=== PATIENT | female | born 1960 | race Caucasian/White ===

== ENCOUNTER 2016-11-16 19:09 | Emergency (ER) | payer BC ==
--- NOTE | 2016-11-16 19:41 | EDM.PDOC ---
ED HPI GENERAL MEDICAL PROBLEM - General Chief Complaint: Respiratory Problem Stated Complaint: SOB SORE THROAT POSS FEVER Time Seen by Provider: 11/16/16 19:10 - History of Present Illness INITIAL COMMENTS - FREE TEXT/NARRATIVE: 56-year-old female presents to the emergency room with chest pain. This began several days ago is progressively getting worse she is now coughing up off-colored yellowish sputum denies fevers or chills. She has some right- sided chest discomfort with this. 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 She denies any fevers or chills no nausea vomiting diarrhea constipation. Right Upper Back Pain Score (Numeric/FACES): 10 - Related Data Allergies Allergy/AdvReac Type Severity Reaction Status Date / Time No Known Allergies Allergy Verified 11/16/16 19:23 Home Meds: Home Meds DULoxetine [Cymbalta] 60 mg PO DAILY 11/16/16 [History] Doxycycline Hyclate 100 mg PO Q12H #13 tablet 11/16/16 [Rx] Rosuvastatin [Crestor] 10 mg PO BEDTIME 11/16/16 [History] Warfarin [Coumadin] 1 tab PO MO 11/16/16 [History] Warfarin [Coumadin] 1 tab PO SUTUWETHFRSA 11/16/16 [History] Past Medical History Cardiovascular History: Reports: Blood Clots/VTE/DVT, High Cholesterol Respiratory History: Reports: Pneumonia, Recurrent - Past Surgical History GI Surgical History: Reports: Cholecystectomy Social & Family History - Tobacco Use Smoking Status *Q: Former Smoker Used Tobacco, but Quit: Yes Month Tobacco Last Used: Febuary - Caffeine Use Caffeine Use: Reports: Coffee - Recreational Drug Use Recreational Drug Use: No ED ROS GENERAL - Review of Systems Review Of Systems: See Below Constitutional: Reports: No Symptoms HEENT: Reports: No Symptoms Respiratory: Reports: Shortness of Breath, Cough, Sputum Cardiovascular: Reports: Chest Pain. Denies: Dyspnea on Exertion, Edema GI/Abdominal: Reports: No Symptoms : Reports: No Symptoms Neurological: Reports: No Symptoms ED EXAM, GENERAL - Physical Exam Exam: See Below Exam Limited By: No Limitations General Appearance: Alert, No Apparent Distress Eye Exam: Bilateral Eye: Normal Inspection, PERRL Ears: Normal External Exam, Normal Canal, Hearing Grossly Normal, Normal TMs Nose: Normal Inspection Throat/Mouth: Normal Inspection, Normal Lips, Normal Teeth, Normal Gums, Normal Oropharynx, Normal Voice, No Airway Compromise Head: Atraumatic, Normocephalic Neck: Normal Inspection, Supple, Non-Tender, Full Range of Motion Respiratory/Chest: No Respiratory Distress, Lungs Clear, Normal Breath Sounds Cardiovascular: Normal Peripheral Pulses, Regular Rate, Rhythm, No Edema, No Murmur GI/Abdominal: Normal Bowel Sounds, Soft, Non-Tender, No Organomegaly, No Distention, No Abnormal Bruit, No Mass EKG INTERPRETATION EKG Date: 11/16/16 Rhythm: NSR [place]: Normal P-Wave: Present QRS: Other (Developing interventricular conduction delay) ST-T: Other (Nondiagnostic ST-T wave changes some of this can be due to wandering baseline artifact) QT: Normal Comparison: NA - No Prior EKG EKG Interpretation Comments: Abnormal no comparison available Course - Vital Signs Last Recorded V/S: Last Vital Signs Temp 36.0 C 11/16/16 19:16 Pulse 95 11/16/16 19:16 Resp 18 11/16/16 19:16 BP 122/91 H 11/16/16 19:16 Pulse Ox 92 L 11/16/16 22:35 - Orders/Labs/Meds Orders: Active Orders 24 hr Category Date Time Status EKG 12 Lead [EKG Documentation Completion] [RC] STAT Care 11/16/16 19:40 Active RT Post Treatment Assessment [RC] Click To Edit Care 11/16/16 22:23 Active RT Pre-Treatment Assessment [RC] Click To Edit Care 11/16/16 22:23 Active Chest 2V [CR] Stat Exams 11/16/16 19:41 Taken Labs: Laboratory Tests 11/16/16 11/16/16 11/16/16 Range/Units 19:50 19:50 19:50 WBC 9.84 (3.98-10.04) K/mm3 RBC 4.35 (3.98-5.22) M/mm3 Hgb 13.2 (11.2-15.7) gm/L Hct 40.7 (34.1-44.9) % MCV 93.6 (79.4-94.8) fl MCH 30.3 (25.6-32.2) pg MCHC 32.4 (32.2-35.5) g/dl RDW Std Deviation 45.3 (36.4-46.3) fL Plt Count 278 (182-369) K/mm3 MPV 10.7 (9.4-12.3) fl Neutrophils % (Manual) 71 H (40-60) % Band Neutrophils % 0 (0-10) % Lymphocytes % (Manual) 23 (20-40) % Atypical Lymphs % 0 % Monocytes % (Manual) 6 (2-10) % Eosinophils % (Manual) 0 L (0.7-5.8) % Basophils % (Manual) 0 L (0.1-1.2) Platelet Estimate Adequate Plt Morphology Comment Normal RBC Morph Comment Not Reportable PT 22.7 H (8.0-13.0) SECONDS INR 1.99 APTT 40 H (22-36) SECONDS Sodium 141 (136-145) mEq/L Potassium 3.6 (3.5-5.1) mEq/L Chloride 107 (98-107) mEq/L Carbon Dioxide 24 (21-32) mEq/L Anion Gap 13.6 (5-15) BUN 14 (7-18) mg/dL Creatinine 1.0 (0.55-1.02) mg/dL Est Cr Clr Drug Dosing 49.68 mL/min Estimated GFR (MDRD) 57 (>60) mL/min BUN/Creatinine Ratio 14.0 (14-18) Glucose 106 (74-106) mg/dL Calcium 8.5 (8.5-10.1) mg/dL Total Bilirubin 0.3 (0.2-1.0) mg/dL AST 20 (15-37) U/L ALT 28 (14-59) U/L Alkaline Phosphatase 68 (46-116) U/L Troponin I < 0.017 (0.00-0.056) ng/mL Total Protein 6.8 (6.4-8.2) g/dl Albumin 3.1 L (3.4-5.0) g/dl Globulin 3.7 gm/dL Albumin/Globulin Ratio 0.8 L (1-2) /15/ Range/Units 22:08 WBC (3.98-10.04) K/mm3 RBC (3.98-5.22) M/mm3 Hgb (11.2-15.7) gm/L Hct (34.1-44.9) % MCV (79.4-94.8) fl MCH (25.6-32.2) pg MCHC (32.2-35.5) g/dl RDW Std Deviation (36.4-46.3) fL Plt Count (182-369) K/mm3 MPV (9.4-12.3) fl Neutrophils % (Manual) (40-60) % Band Neutrophils % (0-10) % Lymphocytes % (Manual) (20-40) % Atypical Lymphs % % Monocytes % (Manual) (2-10) % Eosinophils % (Manual) (0.7-5.8) % Basophils % (Manual) (0.1-1.2) Platelet Estimate Plt Morphology Comment RBC Morph Comment PT (8.0-13.0) SECONDS INR APTT (22-36) SECONDS Sodium (136-145) mEq/L Potassium (3.5-5.1) mEq/L Chloride (98-107) mEq/L Carbon Dioxide (21-32) mEq/L Anion Gap (5-15) BUN (7-18) mg/dL Creatinine (0.55-1.02) mg/dL Est Cr Clr Drug Dosing mL/min Estimated GFR (MDRD) (>60) mL/min BUN/Creatinine Ratio (14-18) Glucose (74-106) mg/dL Calcium (8.5-10.1) mg/dL Total Bilirubin (0.2-1.0) mg/dL AST (15-37) U/L ALT (14-59) U/L Alkaline Phosphatase (46-116) U/L Troponin I < 0.017 (0.00-0.056) ng/mL Total Protein (6.4-8.2) g/dl Albumin (3.4-5.0) g/dl Globulin gm/dL Albumin/Globulin Ratio (1-2) Meds: Medications Discontinued Medications Generic Name Dose Route Start Last Admin Trade Name Freq PRN Reason Stop Dose Admin Hydrocodone Bitart/Acetaminophen 1 tab 11/16/16 23:00 11/16/16 23:16 [place] 325-5 Mg PO 11/16/16 23:01 1 tab ONETIME ONE Administration Albuterol 6.5 gm 11/16/16 22:22 11/16/16 22:33 Proventil Hfa INH 11/16/16 22:23 2 puff ONETIME ONE Administration - Re-Assessments/Exams Free Text/Narrative Re-Assessment/Exam: 11/16/16 21:47 Labs are unrevealing her INR is a little subtherapeutic at 1.99 she takes 5 mg daily except on Mondays take 7.5 at this point we will have her take an additional 2.5 mg she brought her own Coumadin and took her own half of a 5 mg tablet. Her pain indeed has a positional component however we will check a 2 hour troponin. The patient was started on Crestor 10 mg daily this was started yesterday. 11/16/16 22:23 Situation reviewed again with the patient she is coughing bringing up some off- colored sputum really doesn't have an abdominal component repeated abdominal exam is negative. She coughs and has a hard time clearing secretions will try her on an albuterol MDI see if this helps. 11/16/16 23:01 Second troponins negative she did get some improvement with the albuterol MDI but she still having some discomfort we'll try a single [place] and see how she does with this. We did discuss getting a CT scan in case she had a PE however she is already on Coumadin patient decides against this, the possibility of an aortic issue is highly unlikely given her history and low blood pressure. 11/16/16 23:20 At this point the patient would like to be discharged she's doing much better she attributes this to the inhaler did discuss her family history which includes a mom who at age 56 of an [place] and a father who had a pacemaker at the advanced age. The patient's heart score was calculated. With her mother her hyperlipidemia and obesity she gets 2 points for risk factors one point for age and 1.4 moderately suspicious history which is 4 however the patient would like to go home. Departure - Departure Time of Disposition: 23:22 Disposition: Home, Self-Care 01 Clinical Impression: Bronchitis - Discharge Information Forms: ED Department Discharge Additional Instructions: Return to the emergency room with any questions or problems or worsening symptoms. Follow-up with your regular physician on Sunday for recheck you need to have a repeat INR. You've been started on doxycycline this is an antibiotic like many antibiotics it well work with your Coumadin to further thin your blood so this needs to be watched very closely. You were started on an albuterol inhaler here in the emergency room and this seems to be helping use this 2 puffs every 4 hours while awake. - My Orders Last 24 Hours: My Active Orders 11/16/16 19:40 EKG 12 Lead [EKG Documentation Completion] [RC] STAT 11/16/16 19:41 Chest 2V [CR] Stat 11/16/16 22:23 RT Post Treatment Assessment [RC] Click To Edit RT Pre-Treatment Assessment [RC] Click To Edit - Assessment/Plan Last 24 Hours: My Active Orders 11/16/16 19:40 EKG 12 Lead [EKG Documentation Completion] [RC] STAT 11/16/16 19:41 Chest 2V [CR] Stat 11/16/16 22:23 RT Post Treatment Assessment [RC] Click To Edit RT Pre-Treatment Assessment [RC] Click To Edit
[2016-11-16] MEDS ORDERED: Albuterol 6.7 GM Inhaler INH ONE (22:22)
[2016-11-16] MEDS ORDERED: Acetaminophen/HYDROcodone 325-5 MG Tab PO ONE (23:00)
[2016-11-16] MEDS ORDERED: Doxycycline 100 MG Cap PO ONE (23:23)
[2016-11-17 00:07] VITALS: BP 112/78
--- NOTE | 2016-11-17 10:38 | CR ---
Chest: Two views of the chest were obtained. Comparison: No previous chest x-ray. Heart size and mediastinum are within normal limits. Lungs are clear. Mild degenerative change is noted within the spine. Impression: 1. Incidental findings. Nothing acute is appreciated on two-view chest x-ray. Diagnostic code #2
== END 2016-11-17 00:02 | disposition home or self-care (01) ==
LOC: JD.ED 19:09
DX: J40 Bronchitis, not specified as acute or chronic (principal); E78.00 Pure hypercholesterolemia, unspecified; Z87.01 Personal history of pneumonia (recurrent); Z86.718 Personal history of other venous thrombosis and embolism; Z90.49 Acquired absence of other specified parts of digestive tract; Z87.891 Personal history of nicotine dependence; Z79.01 Long term (current) use of anticoagulants; Z79.899 Other long term (current) drug therapy
CPT/HCPCS: 36415; 71020; 80053; 84484; 85025; 85610; 85730; 93005; 94664; 99285; A9270; 99283

== ENCOUNTER 2020-10-14 16:50 | Inpatient (IN) | payer BC ==
[2020-10-14] MEDS ORDERED: Acetaminophen 325 MG Tab PO ONE (18:09)
[2020-10-14 18:17] LABS: CORONAVIRUS COVID-19 NAA POSITIVE (NEGATIVE)
[2020-10-14] MEDS ORDERED: Acetaminophen 325 MG Tab ONE (18:37)
--- NOTE | 2020-10-14 19:59 | EDM.PDOC ---
ED HPI GENERAL MEDICAL PROBLEM - General Chief Complaint: Respiratory Problem Stated Complaint: SORE THROAT/HIGH TEMP 103/BODY ACHES/ Time Seen by Provider: 10/14/20 17:51 Source of Information: Reports: Patient History Limitations: Reports: No Limitations - History of Present Illness INITIAL COMMENTS - FREE TEXT/NARRATIVE: 60-year-old female presents to the emergency department with complaints of sore throat, headache, cough, shortness of breath, and diarrhea. She states she began to feel unwell 3 days ago. She states this started with a dull headache and cough productive of yellow sputum. She states that that got slightly better however yesterday she developed a severe sore throat, the cough had returned, headache had worsened, and had progressively worse shortness of breath. She noted fever and chills last evening. She states she does have a history of emphysema and she quit smoking about 6 years ago. She has not had Covid this year and has not had her Covid vaccine. She states that her has been ill as well as all his coworkers. 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 Her primary care provider is Dr. Hammond at [facility]. Throat Pain Score (Numeric/FACES): 2 - Related Data Allergies Allergy/AdvReac Type Severity Reaction Status Date / Time No Known Allergies Allergy Verified 10/14/20 17:07 Home Meds: Home Meds DULoxetine [Cymbalta] 60 mg PO DAILY 11/16/16 [History] Rosuvastatin [Crestor] 10 mg PO BEDTIME 11/16/16 [History] Warfarin [Coumadin] 1 tab PO ASDIRECTED 11/16/16 [History] Albuterol Sulfate [Albuterol Sulfate Hfa] 2 puff IH Q4H PRN 10/14/20 [History] Warfarin [Coumadin] 2.5 mg PO TU 10/14/20 [History] Past Medical History Cardiovascular History: Reports: Blood Clots/VTE/DVT, High Cholesterol Respiratory History: Reports: PE, Pneumonia, Recurrent, Other (See Below) Other Respiratory History: Emphysema Psychiatric History: Reports: Anxiety, Depression Endocrine/Metabolic History: Reports: Obesity/BMI 30+ Hematologic History: Reports: Anticoagulation Therapy - Past Surgical History GI Surgical History: Reports: Cholecystectomy Social & Family History - Tobacco Use Tobacco Use Status *Q: Former Tobacco User Used Tobacco, but Quit: Yes Month/Year Tobacco Last Used: 06/2014 - Caffeine Use Caffeine Use: Reports: Coffee - Recreational Drug Use Recreational Drug Use: No ED ROS GENERAL - Review of Systems Review Of Systems: See Below Constitutional: Reports: Fever, Chills, Night Sweats. Denies: Fatigue, Decreased Appetite HEENT: Reports: Throat Pain Respiratory: Reports: Shortness of Breath, Cough, Sputum. Denies: Wheezing Cardiovascular: Reports: Dyspnea on Exertion. Denies: Chest Pain, Edema, Lightheadedness, Palpitations Endocrine: Reports: No Symptoms GI/Abdominal: Reports: Diarrhea. Denies: Abdominal Pain, Constipation, Decreased Appetite, Nausea, Vomiting : Reports: No Symptoms Musculoskeletal: Reports: No Symptoms Skin: Reports: No Symptoms Neurological: Reports: Headache Psychiatric: Reports: No Symptoms Hematologic/Lymphatic: Reports: No Symptoms Immunologic: Reports: No Symptoms ED EXAM, GENERAL - Physical Exam Exam: See Below Exam Limited By: No Limitations General Appearance: Alert, WD/WN, Mild Distress Eye Exam: Bilateral Eye: PERRL Ears: Normal External Exam, Hearing Grossly Normal Nose: Normal Inspection Throat/Mouth: Normal Inspection, Normal Lips, Normal Voice, No Airway Compromise Head: Atraumatic, Normocephalic Neck: Normal Inspection Respiratory/Chest: Normal Breath Sounds, No Accessory Muscle Use, Chest Non- Tender, Respiratory Distress (Mild). No: Lungs Clear (Diminished) Cardiovascular: Normal Peripheral Pulses, No Edema, No Murmur, Tachycardia (Likely due to fever) Peripheral Pulses: 2+: Radial (L), Radial (R) GI/Abdominal: Normal Bowel Sounds, Soft, Non-Tender, No Distention (Female) Exam: Deferred Rectal (Female) Exam: Deferred Back Exam: Normal Inspection Extremities: Normal Inspection, Normal Range of Motion, Non-Tender, No Pedal Edema, Normal Capillary Refill Neurological: Alert, Oriented, Normal Cognition Psychiatric: Normal Affect, Normal Mood Skin Exam: Warm, Dry, Intact, Normal Color, No Rash Lymphatic: No Adenopathy #1 Interpretation EKG Date: 10/14/20 Time: 18:25 Rhythm: NSR Rate (Beats/Min): 110 [place]: Normal P-Wave: Present QRS: Normal ST-T: Normal QT: Normal EKG Interpretation Comments: Per Dr. Almaraz interpretation: Sinus tachycardia at 110; right axis deviation; low voltage, extremity leads; abnormal R wave progression, late transition Course - Vital Signs Text/Narrative:: Patient presents with 3-day history of cough, shortness of breath, sore throat, and headache. She denies any nausea and vomiting. She states she had diarrhea 3 days ago but that has resolved. She still has taste and smell. She states her appetite has been normal. Patient's O2 saturations while in triage in the emergency department are 82% on room air. O2 was placed on the patient at that time per nasal cannula. I have ordered labs, EKG, and a chest x-ray. Patient will also have a Covid swab. Patient also has a low-grade temp of 100.0. She is flushed and tachycardic in the 120s and her skin is very warm to touch. I have ordered for her to receive a dose of Tylenol p.o. Last Recorded V/S: Last Vital Signs Temp 103 F H 10/14/20 18:40 Pulse 119 H 10/14/20 17:03 Resp 20 10/14/20 17:03 BP 162/89 H 10/14/20 17:03 Pulse Ox 82 L 10/14/20 17:03 - Orders/Labs/Meds Orders: Active Orders 24 hr Category Date Time Status EKG Documentation Completion [RC] STAT Care 10/14/20 18:08 Active Nurse Communication: Isolation [RC] ASDIRECTED Care 10/14/20 18:08 Active Chest 1V Frontal [CR] Stat Exams 10/14/20 18:08 Taken CULTURE BLOOD [BC] Stat Lab 10/14/20 20:05 Ordered CULTURE BLOOD [BC] Stat Lab 10/14/20 20:05 Ordered UA W/MANNY RFLX IF INDICATED [URIN] Routine Lab 10/14/20 18:07 Ordered Blood Culture x2 Reflex Set [OM.PC] Stat Oth 10/14/20 20:05 Ordered Isolation [COMM] Stat Oth 10/14/20 18:07 Ordered Labs: Laboratory Tests 10/14/20 10/14/20 10/14/20 Range/Units 17:21 17:21 17:21 WBC (3.98-10.04) K/mm3 RBC (3.98-5.22) M/mm3 Hgb (11.2-15.7) gm/dl Hct (34.1-44.9) % MCV (79.4-94.8) fl MCH (25.6-32.2) pg MCHC (32.2-35.5) g/dl RDW Std Deviation (36.4-46.3) fL Plt Count (182-369) K/mm3 MPV (9.4-12.3) fl Neut % (Auto) (34.0-71.1) % Lymph % (Auto) (19.3-51.7) % [place] % (Auto) (4.7-12.5) % Eos % (Auto) (0.7-5.8) Baso % (Auto) (0.1-1.2) % Neut # (Auto) (1.56-6.13) K/mm3 Lymph # (Auto) (1.18-3.74) K/mm3 [place] # (Auto) (0.24-0.36) K/mm3 Eos # (Auto) (0.04-0.36) K/mm3 Baso # (Auto) (0.01-0.08) K/mm3 Manual Slide Review PT (9.7-12.0) SECONDS INR APTT (21.7-31.4) SECONDS D-Dimer, Quantitative (0.19-0.50) mg/L Sodium 136 (136-145) mEq/L Potassium 3.8 (3.5-5.1) mEq/L Chloride 101 (98-107) mEq/L Carbon Dioxide 24 (21-32) mEq/L Anion Gap 14.8 (5-15) BUN 13 (7-18) mg/dL Creatinine 1.0 (0.55-1.02) mg/dL Est Cr Clr Drug Dosing 51.66 mL/min Estimated GFR (MDRD) 57 (>60) mL/min BUN/Creatinine Ratio 13.0 L (14-18) Glucose 108 H (70-99) mg/dL Lactic Acid (0.4-2.0) mmol/L Calcium 8.2 L (8.5-10.1) mg/dL Ferritin 349 H (8-252) ng/ml Total Bilirubin 0.4 (0.2-1.0) mg/dL AST 38 H (15-37) U/L ALT 46 (14-59) U/L Alkaline Phosphatase 59 (46-116) U/L Lactate Dehydrogenase 239 H (81-234) U/L C-Reactive Protein 5.8 H* (<1.0) mg/dL Total Protein 7.4 (6.4-8.2) g/dl Albumin 3.5 (3.4-5.0) g/dl Globulin 3.9 gm/dL Albumin/Globulin Ratio 0.9 L (1-2) Influenza Type A RNA Negative (NEGATIVE) Influenza Type B RNA Negative (NEGATIVE) SARS-CoV-2 RNA ([place]) Positive H (NEGATIVE) 10/14/20 10/14/20 10/14/20 Range/Units 17:21 17:21 18:34 WBC 8.32 (3.98-10.04) K/mm3 RBC 4.66 (3.98-5.22) M/mm3 Hgb 14.1 (11.2-15.7) gm/dl Hct 42.9 (34.1-44.9) % MCV 92.1 (79.4-94.8) fl MCH 30.3 (25.6-32.2) pg MCHC 32.9 (32.2-35.5) g/dl RDW Std Deviation 46.4 H (36.4-46.3) fL Plt Count 215 (182-369) K/mm3 MPV 10.9 (9.4-12.3) fl Neut % (Auto) 84.8 H (34.0-71.1) % Lymph % (Auto) 8.8 L (19.3-51.7) % [place] % (Auto) 6.0 (4.7-12.5) % Eos % (Auto) 0.1 L (0.7-5.8) Baso % (Auto) 0.1 (0.1-1.2) % Neut # (Auto) 7.05 H (1.56-6.13) K/mm3 Lymph # (Auto) 0.73 L (1.18-3.74) K/mm3 [place] # (Auto) 0.50 H (0.24-0.36) K/mm3 Eos # (Auto) 0.01 L (0.04-0.36) K/mm3 Baso # (Auto) 0.01 (0.01-0.08) K/mm3 Manual Slide Review Abnormal smear PT 26.0 H (9.7-12.0) SECONDS INR 2.47 APTT 50.3 H (21.7-31.4) SECONDS D-Dimer, Quantitative < 0.19 L (0.19-0.50) mg/L Sodium (136-145) mEq/L Potassium (3.5-5.1) mEq/L Chloride (98-107) mEq/L Carbon Dioxide (21-32) mEq/L Anion Gap (5-15) BUN (7-18) mg/dL Creatinine (0.55-1.02) mg/dL Est Cr Clr Drug Dosing mL/min Estimated GFR (MDRD) (>60) mL/min BUN/Creatinine Ratio (14-18) Glucose (70-99) mg/dL Lactic Acid 0.8 (0.4-2.0) mmol/L Calcium (8.5-10.1) mg/dL Ferritin (8-252) ng/ml Total Bilirubin (0.2-1.0) mg/dL AST (15-37) U/L ALT (14-59) U/L Alkaline Phosphatase (46-116) U/L Lactate Dehydrogenase (81-234) U/L C-Reactive Protein (<1.0) mg/dL Total Protein (6.4-8.2) g/dl Albumin (3.4-5.0) g/dl Globulin gm/dL Albumin/Globulin Ratio (1-2) Influenza Type A RNA (NEGATIVE) Influenza Type B RNA (NEGATIVE) SARS-CoV-2 RNA ([place]) (NEGATIVE) Meds: Medications Discontinued Medications Generic Name Dose Route Start Last Admin Trade Name Myra PRN Reason Stop Dose Admin Acetaminophen 650 mg 10/14/20 18:09 10/14/20 18:40 Acetaminophen 325 Mg Tab PO 10/14/20 18:10 650 mg NOW ONE Administration Acetaminophen Confirm 10/14/20 18:37 10/14/20 18:41 Acetaminophen 325 Mg Tab Administered 10/14/20 18:38 Not Given Dose 650 mg .ROUTE .STK-MED ONE - Re-Assessments/Exams Free Text/Narrative Re-Assessment/Exam: 10/14/20 20:03 Hematology reveals a WBC of 8.32, hemoglobin 14.1, hematocrit 42.9, platelet count 215, pro time 26.0, INR 2.47, PTT 50.3, D-dimer less than 0.19, chemistry reveals a sodium of 136, potassium 3.8, anion gap 14.8, BUN 13, creatinine 1.0, glucose 108, calcium 8.2, ferritin 349, total bilirubin 0.4, AST 38, ALT 46, alk phos 59, LDH 239, C-reactive protein 5.8, serology reveals influenza a and B are negative however Covid is positive. 10/14/20 20:30 [facility] radiologist impression: Negative for acute thoracic pathology. I feel like this patient needs to be admitted as she is requiring O2 to keep her saturations greater than 90%. I have phoned Dr. Atkins the hospitalist and he has agreed to take her. She will be admitted to inpatient on the medical floor with telemetry. He request that I start the patient on the initial remdesivir dose of 200 mg. 10/14/20 20:31 Lactic acid is 0.8. Departure - Departure Time of Disposition: 20:40 Disposition: Admitted As Inpatient 66 Condition: Good Clinical Impression: COVID-19, Hypoxia - Discharge Information Referrals: Cassie Hammond MD [Primary Care Provider] - Forms: ED Department Discharge Sepsis Event Note (ED) - Evaluation Sepsis Screening Result: Possible Sepsis Risk - Focused Exam Vital Signs: Vital Signs Temp Temp Pulse Resp BP Pulse Ox 10/14/20 18:40 103 F H 10/14/20 17:03 100 F 119 H 20 162/89 H 82 L - My Orders Last 24 Hours: My Active Orders 10/14/20 18:07 UA W/MANNY RFLX IF INDICATED [URIN] Routine Isolation [COMM] Stat 10/14/20 18:08 EKG Documentation Completion [RC] STAT Nurse Communication: Isolation [RC] ASDIRECTED Chest 1V Frontal [CR] Stat 10/14/20 20:05 CULTURE BLOOD [BC] Stat CULTURE BLOOD [BC] Stat Blood Culture x2 Reflex Set [OM.PC] Stat - Assessment/Plan Last 24 Hours: My Active Orders 10/14/20 18:07 UA W/MANNY RFLX IF INDICATED [URIN] Routine Isolation [COMM] Stat 10/14/20 18:08 EKG Documentation Completion [RC] STAT Nurse Communication: Isolation [RC] ASDIRECTED Chest 1V Frontal [CR] Stat 10/14/20 20:05 CULTURE BLOOD [BC] Stat CULTURE BLOOD [BC] Stat Blood Culture x2 Reflex Set [OM.PC] Stat
[2020-10-14] MEDS ORDERED: REMDESIVIR 200 MG in Sodium Chloride 0.9% 250 ML IV ONE (20:32)
[2020-10-14] MEDS ORDERED: Morphine 2 MG/ML SYRINGE IVPUSH PRN (21:03)
[2020-10-14] MEDS ORDERED: Acetaminophen 650 MG Supp RECTAL PRN (21:03)
[2020-10-14] MEDS ORDERED: Promethazine 12.5 MG in Sodium Chloride 0.9% 50 ML IV PRN (21:03)
[2020-10-14] MEDS ORDERED: Melatonin 3 MG Tab PO PRN (21:14)
[2020-10-14] MEDS ORDERED: cefTRIAXone 2 GM in Sodium Chloride 0.9% 100 ML IV SCH (21:15)
[2020-10-14] MEDS ORDERED: Azithromycin 500 MG in Sodium Chloride 0.9% 250 ML IV SCH (21:15)
[2020-10-14] MEDS ORDERED: hydrALAZINE 20 MG/ML SDV IVPUSH PRN (21:16)
--- NOTE | 2020-10-14 21:21 | PCM.HP.2 ---
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 Her diarrhea improved but her shortness of breath has been worsening since yesterday. She has not received COVID-19 vaccine yet. Otherwise patient is fine. In the ER, she was found to to be oxygen desaturated 82%. Covid 19 was positive. Chest x-ray showed no acute change. Throat Pain Score (Numeric/FACES): 2 - Related Data Allergies/Adverse Reactions: Allergies Allergy/AdvReac Type Severity Reaction Status Date / Time No Known Allergies Allergy Verified 10/14/20 17:07 Home Medications: Home Meds DULoxetine [Cymbalta] 60 mg PO DAILY 11/16/16 [History] Rosuvastatin [Crestor] 10 mg PO BEDTIME 11/16/16 [History] Warfarin [Coumadin] 1 tab PO SUMOWETHFRSA 11/16/16 [History] Albuterol Sulfate [Albuterol Sulfate Hfa] 2 puff IH Q4H PRN 10/14/20 [History] Warfarin [Coumadin] 2.5 mg PO TU 10/14/20 [History] Past Medical History Cardiovascular History: Reports: Blood Clots/VTE/DVT, High Cholesterol Respiratory History: Reports: PE, Pneumonia, Recurrent, Other (See Below) Other Respiratory History: Emphysema Psychiatric History: Reports: Anxiety, Depression Endocrine/Metabolic History: Reports: Obesity/BMI 30+ Hematologic History: Reports: Anticoagulation Therapy - Past Surgical History GI Surgical History: Reports: Cholecystectomy Social & Family History - Family History Family Medical History: No Pertinent Family History (Denies genetic diseases in family) - Tobacco Use Tobacco Use Status *Q: Former Tobacco User Used Tobacco, but Quit: Yes Month/Year Tobacco Last Used: 06/2014 - Caffeine Use Caffeine Use: Reports: Coffee - Recreational Drug Use Recreational Drug Use: No H&P Review of Systems - Review of Systems: Review Of Systems: See Below General: Reports: Malaise HEENT: Reports: Headaches, Sore Throat Pulmonary: Reports: Shortness of Breath, Cough, Sputum Cardiovascular: Reports: No Symptoms Gastrointestinal: Reports: Diarrhea Genitourinary: Reports: No Symptoms Musculoskeletal: Reports: No Symptoms Skin: Reports: No Symptoms Psychiatric: Reports: No Symptoms Neurological: Reports: No Symptoms Hematologic/Lymphatic: Reports: No Symptoms Immunologic: Reports: No Symptoms Exam - Exam Exam: See Below - Vital Signs Vital Signs: Last Vital Signs Temp 39.4 C H 10/14/20 18:40 Pulse 119 H 10/14/20 17:03 Resp 20 10/14/20 17:03 BP 162/89 H 10/14/20 17:03 Pulse Ox 82 L 10/14/20 17:03 Weight: 101.514 kg - Exam General: Alert, Oriented, Cooperative, Mild Distress (Due to shortness of breath) HEENT: Conjunctiva Clear, EOMI, Pupils Equal, Pupils Reactive Neck: Supple, Full Range of Motion Lungs: Clear to Auscultation, Normal Respiratory Effort, Decreased Breath Sounds Cardiovascular: Regular Rate, Regular Rhythm, Normal S1, Normal S2 GI/Abdominal Exam: Normal Bowel Sounds, Soft, Non-Tender, No Organomegaly Extremities: Normal Inspection, Normal Range of Motion, Non-Tender, No Pedal Edema Skin: Warm, Dry, Intact Neurological: Strength Equal Bilateral, Normal Speech, Normal Tone, Sensation Intact Neuro Extensive - Mental Status: Alert, Oriented x3, Normal Mood/Affect Psychiatric: Normal Affect, Normal Mood - Patient Data Lab Results Last 24 hrs: Laboratory Results - last 24 hr 10/14/20 10/14/20 10/14/20 Range/Units 17:21 17:21 17:21 WBC (3.98-10.04) K/mm3 RBC (3.98-5.22) M/mm3 Hgb (11.2-15.7) gm/dl Hct (34.1-44.9) % MCV (79.4-94.8) fl MCH (25.6-32.2) pg MCHC (32.2-35.5) g/dl RDW Std Deviation (36.4-46.3) fL Plt Count (182-369) K/mm3 MPV (9.4-12.3) fl Neut % (Auto) (34.0-71.1) % Lymph % (Auto) (19.3-51.7) % [place] % (Auto) (4.7-12.5) % Eos % (Auto) (0.7-5.8) Baso % (Auto) (0.1-1.2) % Neut # (Auto) (1.56-6.13) K/mm3 Lymph # (Auto) (1.18-3.74) K/mm3 [place] # (Auto) (0.24-0.36) K/mm3 Eos # (Auto) (0.04-0.36) K/mm3 Baso # (Auto) (0.01-0.08) K/mm3 Manual Slide Review PT (9.7-12.0) SECONDS INR APTT (21.7-31.4) SECONDS D-Dimer, Quantitative (0.19-0.50) mg/L Sodium 136 (136-145) mEq/L Potassium 3.8 (3.5-5.1) mEq/L Chloride 101 (98-107) mEq/L Carbon Dioxide 24 (21-32) mEq/L Anion Gap 14.8 (5-15) BUN 13 (7-18) mg/dL Creatinine 1.0 (0.55-1.02) mg/dL Est Cr Clr Drug Dosing 51.66 mL/min Estimated GFR (MDRD) 57 (>60) mL/min BUN/Creatinine Ratio 13.0 L (14-18) Glucose 108 H (70-99) mg/dL Lactic Acid (0.4-2.0) mmol/L Calcium 8.2 L (8.5-10.1) mg/dL Ferritin 349 H (8-252) ng/ml Total Bilirubin 0.4 (0.2-1.0) mg/dL AST 38 H (15-37) U/L ALT 46 (14-59) U/L Alkaline Phosphatase 59 (46-116) U/L Lactate Dehydrogenase 239 H (81-234) U/L C-Reactive Protein 5.8 H* (<1.0) mg/dL Total Protein 7.4 (6.4-8.2) g/dl Albumin 3.5 (3.4-5.0) g/dl Globulin 3.9 gm/dL Albumin/Globulin Ratio 0.9 L (1-2) Influenza Type A RNA Negative (NEGATIVE) Influenza Type B RNA Negative (NEGATIVE) SARS-CoV-2 RNA (LAVIN[place]) Positive H (NEGATIVE) 10/14/20 10/14/20 10/14/20 Range/Units 17:21 17:21 18:34 WBC 8.32 (3.98-10.04) K/mm3 RBC 4.66 (3.98-5.22) M/mm3 Hgb 14.1 (11.2-15.7) gm/dl Hct 42.9 (34.1-44.9) % MCV 92.1 (79.4-94.8) fl MCH 30.3 (25.6-32.2) pg MCHC 32.9 (32.2-35.5) g/dl RDW Std Deviation 46.4 H (36.4-46.3) fL Plt Count 215 (182-369) K/mm3 MPV 10.9 (9.4-12.3) fl Neut % (Auto) 84.8 H (34.0-71.1) % Lymph % (Auto) 8.8 L (19.3-51.7) % [place] % (Auto) 6.0 (4.7-12.5) % Eos % (Auto) 0.1 L (0.7-5.8) Baso % (Auto) 0.1 (0.1-1.2) % Neut # (Auto) 7.05 H (1.56-6.13) K/mm3 Lymph # (Auto) 0.73 L (1.18-3.74) K/mm3 [place] # (Auto) 0.50 H (0.24-0.36) K/mm3 Eos # (Auto) 0.01 L (0.04-0.36) K/mm3 Baso # (Auto) 0.01 (0.01-0.08) K/mm3 Manual Slide Review Abnormal smear PT 26.0 H (9.7-12.0) SECONDS INR 2.47 APTT 50.3 H (21.7-31.4) SECONDS D-Dimer, Quantitative < 0.19 L (0.19-0.50) mg/L Sodium (136-145) mEq/L Potassium (3.5-5.1) mEq/L Chloride (98-107) mEq/L Carbon Dioxide (21-32) mEq/L Anion Gap (5-15) BUN (7-18) mg/dL Creatinine (0.55-1.02) mg/dL Est Cr Clr Drug Dosing mL/min Estimated GFR (MDRD) (>60) mL/min BUN/Creatinine Ratio (14-18) Glucose (70-99) mg/dL Lactic Acid 0.8 (0.4-2.0) mmol/L Calcium (8.5-10.1) mg/dL Ferritin (8-252) ng/ml Total Bilirubin (0.2-1.0) mg/dL AST (15-37) U/L ALT (14-59) U/L Alkaline Phosphatase (46-116) U/L Lactate Dehydrogenase (81-234) U/L C-Reactive Protein (<1.0) mg/dL Total Protein (6.4-8.2) g/dl Albumin (3.4-5.0) g/dl Globulin gm/dL Albumin/Globulin Ratio (1-2) Influenza Type A RNA (NEGATIVE) Influenza Type B RNA (NEGATIVE) SARS-CoV-2 RNA ([place]VIN[place]) (NEGATIVE) Result Diagrams: 10/15/20 06:27 10/15/20 06:27 Sepsis Event Note - Evaluation Sepsis Screening Result: Possible Sepsis Risk - Focused Exam Vital Signs: Vital Signs Temp Temp Pulse Resp BP Pulse Ox 10/14/20 18:40 39.4 C H 10/14/20 17:03 37.7 C 119 H 20 162/89 H 82 L Problem List Initiated/Reviewed/Updated: Yes Orders Last 24hrs: Active Orders 24 hr Category Date Time Status Admission Status [Patient Status] [ADT] Routine ADT 10/14/20 20:32 Active Cardiac Monitoring [RC] CONTINUOUS Care 10/14/20 21:03 Ordered EKG Documentation Completion [RC] STAT Care 10/14/20 18:08 Active Intake and Output [RC] QSHIFT Care 10/14/20 21:03 Ordered Oxygen Therapy [RC] PRN Care 10/14/20 21:03 Ordered Pulse Oximetry [RC] CONTINUOUS Care 10/14/20 21:03 Ordered RT Post Treatment Assessment [RC] Click to Edit Care 10/14/20 21:17 Ordered RT Pre-Treatment Assessment [RC] Click to Edit Care 10/14/20 21:17 Ordered Up to Chair [RC] ASDIRECTED Care 10/14/20 21:03 Ordered VTE/DVT Education [RC] PER UNIT ROUTINE Care 10/14/20 21:03 Ordered Vital Signs [RC] Q4H Care 10/14/20 21:03 Ordered Regular Diet [DIET] Diet 10/14/20 Dinner Ordered Chest 1V Frontal [CR] Stat Exams 10/14/20 18:08 Taken A1C [GLYCOSYLATED HEMOGLOBIN,HGBA1C] [CHEM] Routine Lab 10/15/20 05:00 Ordered CBC WITH AUTO DIFF [HEME] DAILY Lab 10/15/20 05:00 Ordered CBC WITH AUTO DIFF [HEME] DAILY Lab 10/16/20 05:00 Ordered CBC WITH AUTO DIFF [HEME] DAILY Lab 10/17/20 05:00 Ordered CBC WITH AUTO DIFF [HEME] DAILY Lab 10/18/20 05:00 Ordered CBC WITH AUTO DIFF [HEME] DAILY Lab 10/19/20 05:00 Ordered COMPREHENSIVE METABOLIC PN,CMP [CHEM] DAILY Lab 10/15/20 05:00 Ordered COMPREHENSIVE METABOLIC PN,CMP [CHEM] DAILY Lab 10/16/20 05:00 Ordered COMPREHENSIVE METABOLIC PN,CMP [CHEM] DAILY Lab 10/17/20 05:00 Ordered COMPREHENSIVE METABOLIC PN,CMP [CHEM] DAILY Lab 10/18/20 05:00 Ordered COMPREHENSIVE METABOLIC PN,CMP [CHEM] DAILY Lab 10/19/20 05:00 Ordered CRP [C-REACTIVE PROTEIN] [CHEM] DAILY Lab 10/15/20 05:00 Ordered CRP [C-REACTIVE PROTEIN] [CHEM] DAILY Lab 10/16/20 05:00 Ordered CRP [C-REACTIVE PROTEIN] [CHEM] DAILY Lab 10/17/20 05:00 Ordered CRP [C-REACTIVE PROTEIN] [CHEM] DAILY Lab 10/18/20 05:00 Ordered CRP [C-REACTIVE PROTEIN] [CHEM] DAILY Lab 10/19/20 05:00 Ordered CULTURE BLOOD [BC] Stat Lab 10/14/20 20:35 Received CULTURE BLOOD [BC] Stat Lab 10/14/20 20:40 Received CULTURE MRSA [RM] Stat Lab 10/14/20 21:03 Ordered CULTURE SPUTUM + SMEAR [RM] Stat Lab 10/14/20 21:03 Ordered INR,PT,PROTHROMBIN TIME [COAG] DAILY Lab 10/15/20 05:00 Ordered INR,PT,PROTHROMBIN TIME [COAG] DAILY Lab 10/16/20 05:00 Ordered INR,PT,PROTHROMBIN TIME [COAG] DAILY Lab 10/17/20 05:00 Ordered INR,PT,PROTHROMBIN TIME [COAG] DAILY Lab 10/18/20 05:00 Ordered INR,PT,PROTHROMBIN TIME [COAG] DAILY Lab 10/19/20 05:00 Ordered INR,PT,PROTHROMBIN TIME [COAG] Routine Lab 10/14/20 21:17 Ordered MAGNESIUM [CHEM] Routine Lab 10/15/20 05:00 Ordered UA W/MANNY RFLX IF INDICATED [URIN] Routine Lab 10/14/20 18:07 Ordered Acetaminophen [Tylenol] Med 10/14/20 21:03 Ordered 650 mg RECTAL Q6H PRN Albuterol [Proventil HFA] Med 10/14/20 21:16 Ordered 2 puff INH Q4H PRN Azithromycin [Zithromax] 500 mg Med 10/14/20 21:15 Ordered Sodium Chloride 0.9% [Normal Saline (AdvBag)] 250 ml IV Q24H Cholecalciferol (Vitamin D3) [Vitamin D3] Med 10/14/20 21:15 Ordered 5,000 unit PO DAILY DULoxetine Med 10/15/20 09:00 Ordered 60 mg PO DAILY Insulin Lispro [HumaLOG] Med 10/14/20 22:00 Ordered See Protocol SUBCUT QIDACANDBED Melatonin Med 10/14/20 21:14 Ordered 3 mg PO BEDTIME PRN Morphine Med 10/14/20 21:03 Ordered 2 mg IVPUSH Q4H PRN Promethazine [Phenergan] 12.5 mg Med 10/14/20 21:03 Ordered Sodium Chloride 0.9% [Normal Saline] 50 ml IV Q6H Remdesivir 100 mg Med 10/15/20 09:00 Ordered Sodium Chloride 0.9% [Normal Saline] 100 ml IV Q24H Remdesivir 200 mg Med 10/14/20 20:32 Active Sodium Chloride 0.9% [Normal Saline] 250 ml IV ONETIME Rosuvastatin [Crestor] Med 10/15/20 21:00 Ordered 10 mg PO BEDTIME Warfarin [Coumadin] Med 10/19/20 21:16 Ordered 2.5 mg PO TU Warfarin [Coumadin] Med 10/14/20 21:30 Ordered 5 mg PO ASDIRECTED Zinc Sulfate [Zincate] Med 10/15/20 09:00 Ordered 220 mg PO DAILY cefTRIAXone [Rocephin] 2 gm Med 10/14/20 21:15 Ordered Sodium Chloride 0.9% [Normal Saline] 100 ml IV Q24H dexAMETHasone Med 10/14/20 21:15 Ordered 6 mg PO DAILY hydrALAZINE [Apresoline] Med 10/14/20 21:16 Ordered 10 mg IVPUSH Q4H PRN Blood Culture x2 Reflex Set [OM.PC] Stat Ot 10/14/20 20:05 Ordered Isolation [COMM] Stat Ot 10/14/20 18:07 Ordered Medication Orders Acetaminophen (Acetaminophen 650 Mg Supp) 650 mg RECTAL Q6H PRN PRN Reason: Pain (mild 1-3) Albuterol (Albuterol 6.7 Gm Inhaler) gm INH Q4H PRN PRN Reason: Shortness of Breath Cholecalciferol (Cholecalciferol (Vitamin D3) 5,000 Unit Cap) 5,000 unit PO DAILY [facility] Dexamethasone (Dexamethasone 4 Mg Tab) 6 mg PO DAILY [facility] Hydralazine HCl (Hydralazine 20 Mg/Ml Sdv) 10 mg IVPUSH Q4H PRN PRN Reason: Hypertension Remdesivir 200 mg/ Sodium (Chloride) 250 mls @ 250 mls/hr IV ONETIME ONE Stop: 10/14/20 21:31 Last Admin: 10/14/20 20:54 Dose: 250 mls/hr Documented by: QUINCY Promethazine HCl 12.5 mg/ (Sodium Chloride) 50.5 mls @ 100 mls/hr IV Q6H PRN PRN Reason: Nausea/Vomiting Remdesivir 100 mg/ Sodium (Chloride) 100 mls @ 100 mls/hr IV Q24H [facility] Stop: 10/18/20 09:59 Ceftriaxone Sodium 2 gm/ (Sodium Chloride) 100 mls @ 200 mls/hr IV Q24H [facility] Azithromycin 500 mg/ Sodium (Chloride) 250 mls @ 250 mls/hr IV Q24H [facility] Insulin Human Lispro (Insulin Lispro 100 Unit/Ml 10 Ml Vial) 0 unit SUBCUT QIDACANDBED [facility]; Protocol Melatonin (Melatonin 3 Mg Tab) 3 mg PO BEDTIME PRN PRN Reason: Insomnia Morphine Sulfate (Morphine 2 Mg/Ml Syringe) 2 mg IVPUSH Q4H PRN PRN Reason: Pain (severe 7-10) Stop: 10/15/20 21:04 Non-Formulary Medication (Duloxetine) 60 mg PO DAILY [facility] Rosuvastatin Calcium (Rosuvastatin 10 Mg Tab) 10 mg PO BEDTIME HARESH Warfarin Sodium (Warfarin 2.5 Mg Tab) 2.5 mg PO TU [facility] Warfarin Sodium (Warfarin 5 Mg Tab) 5 mg PO ASDIRECTED [facility] Zinc Sulfate (Zinc Sulfate 220 Mg Cap) 220 mg PO DAILY [facility] Assessment/Plan Comment:: Patient is a 60-year-old female with a history of hypertension, 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 Covid positive in the ER Assessment: Acute hypoxic respiratory failure scoliosis -Etiology could be pneumonia, emphysema -Not on home oxygen -Pulse ox -Oxygen therapy, high flow/as needed to keep oxygen saturation greater than 92% Pneumonia, Covid 19 or CAP -CXR -no acute change. But i feel patient has a clinical pneumonia -Covid 19 test positive in in the ER -Symptoms started 3 to 4 days ago -Ferritin 349, D-dimer <0.19 (chronic use of warfarin), CRP 5.8 on admission Transaminitis -Could be due to infection of COVID-19 -AST 38. Tbil 0.4 and Al phos 59 on admission Hx of COPD -As per patient, she has emphysema -Former smoker, quit smoking 6 years ago HTN -Home medication does not include blood pressure medication -Hydralazine as needed Hx of PE and DVT -on warfarin -Therapeutic INR 2.47 on admission Plan: 1. We will admitted to telemetry as an inpatient 2. RT to oxygen to keep saturations greater than 92% Remdesivir 200mg iv x 1 and then 100mg iv daily x 4. Ceftriaxone, azithromycin, dexamethasone 6 mg p.o. daily and continue warfarin. Inhalers She does not have diabetes but I will put her on insulin sliding scale since she is started on high-dose steroid Continue incentive spirometry and A[place]ella Dietitian consult regarding nutritional needs PT/OT to eval and treat and increase activity Prone positioning Continue to trend labs including D-dimer, CRP, and liver functions Monitor electrolytes. replace and repeat it if [facility] for discharge planning Monitor blood sugars 3. Repeat the liver function in morning 4. Repeat INR daily in morning 5. DVT prophylaxis: Warfarin 6. CODE STATUS: Full Deposition: 2 to 3 days - Mortality Measure Prognosis:: Good
[2020-10-14] MEDS: Cholecalciferol (Vitamin D3) 5,000 UNIT Cap PO SCH (22:50)
[2020-10-14] MEDS: Dexamethasone 4 MG Tab PO SCH (23:15)
[2020-10-14] MEDS: Insulin Lispro 100 UNIT/ML 10 ML Vial SUBCUT SCH (23:51)
[2020-10-15 07:18] LABS: HEMOGLOBIN A1C 5.9 %
--- NOTE | 2020-10-15 08:40 | CR ---
Chest: Portable view of the chest was obtained. Comparison: Prior chest x-ray of 11/16/16. Heart size and mediastinum are normal. Lungs are clear with no acute parenchymal change. Bony structures show nothing acute. Impression: 1. Nothing acute is seen on portable chest x-ray. Diagnostic code #1
[2020-10-15] MEDS: Dexamethasone 4 MG Tab PO SCH (09:01)
[2020-10-15] MEDS: Insulin Lispro 100 UNIT/ML 10 ML Vial SUBCUT SCH ×4 (09:01→21:55)
[2020-10-15] MEDS: Cholecalciferol (Vitamin D3) 5,000 UNIT Cap PO SCH (09:02)
[2020-10-15] MEDS: Zinc Sulfate 220 MG Cap PO SCH (09:02)
[2020-10-15] MEDS: DULoxetine 30 MG Cap PO SCH (09:03)
[2020-10-15] MEDS: Acetaminophen 325 MG Tab PO PRN (09:03)
--- NOTE | 2020-10-15 12:22 | PCM.PN ---
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 Patient is feeling better today. No longer has diarrhea, nausea, or vomiting. Mild tachycardia at times She is now on 1 to 1.5 L INR 2.04 Hemoglobin A1c 5.9 Magnesium 2.0 AST 32 CRP 7.5 MRSA screen negative - Review of Systems Systems Review Comment:: General: Reports: Malaise HEENT: Reports: Headaches, Sore Throat Pulmonary: Reports: Shortness of Breath, Cough, Sputum Cardiovascular: Reports: No Symptoms Gastrointestinal: Reports: Diarrhea Genitourinary: Reports: No Symptoms Musculoskeletal: Reports: No Symptoms Skin: Reports: No Symptoms Psychiatric: Reports: No Symptoms Neurological: Reports: No Symptoms Hematologic/Lymphatic: Reports: No Symptoms Immunologic: Reports: No Symptoms - Patient Data Vitals - Most Recent: Last Vital Signs Temp 36.6 C 10/15/20 11:03 Pulse 93 10/15/20 11:03 Resp 20 10/15/20 11:03 BP 123/71 10/15/20 11:03 Pulse Ox 93 L 10/15/20 11:03 Weight - Most Recent: 100.561 kg I&O - Last 24 Hours: Intake & Output 10/14/20 10/15/20 10/15/20 22:59 06:59 14:59 Intake Total 750 180 Output Total 500 Balance 250 180 Lab Results Last 24 Hours: Laboratory Results - last 24 hr 10/14/20 10/14/20 10/14/20 Range/Units 17:21 17:21 17:21 WBC (3.98-10.04) K/mm3 RBC (3.98-5.22) M/mm3 Hgb (11.2-15.7) gm/dl Hct (34.1-44.9) % MCV (79.4-94.8) fl MCH (25.6-32.2) pg MCHC (32.2-35.5) g/dl RDW Std Deviation (36.4-46.3) fL Plt Count (182-369) K/mm3 MPV (9.4-12.3) fl Neut % (Auto) (34.0-71.1) % Lymph % (Auto) (19.3-51.7) % [place] % (Auto) (4.7-12.5) % Eos % (Auto) (0.7-5.8) Baso % (Auto) (0.1-1.2) % Neut # (Auto) (1.56-6.13) K/mm3 Lymph # (Auto) (1.18-3.74) K/mm3 [place] # (Auto) (0.24-0.36) K/mm3 Eos # (Auto) (0.04-0.36) K/mm3 Baso # (Auto) (0.01-0.08) K/mm3 Manual Slide Review PT (9.7-12.0) SECONDS INR APTT (21.7-31.4) SECONDS D-Dimer, Quantitative (0.19-0.50) mg/L Sodium 136 (136-145) mEq/L Potassium 3.8 (3.5-5.1) mEq/L Chloride 101 (98-107) mEq/L Carbon Dioxide 24 (21-32) mEq/L Anion Gap 14.8 (5-15) BUN 13 (7-18) mg/dL Creatinine 1.0 (0.55-1.02) mg/dL Est Cr Clr Drug Dosing 51.66 mL/min Estimated GFR (MDRD) 57 (>60) mL/min BUN/Creatinine Ratio 13.0 L (14-18) Glucose 108 H (70-99) mg/dL POC Glucose (70-99) mg/dL Hemoglobin A1c ( - 5.6) % Lactic Acid (0.4-2.0) mmol/L Calcium 8.2 L (8.5-10.1) mg/dL Magnesium (1.8-2.4) mg/dL Ferritin 349 H (8-252) ng/ml Total Bilirubin 0.4 (0.2-1.0) mg/dL AST 38 H (15-37) U/L ALT 46 (14-59) U/L Alkaline Phosphatase 59 (46-116) U/L Lactate Dehydrogenase 239 H (81-234) U/L C-Reactive Protein 5.8 H* (<1.0) mg/dL Total Protein 7.4 (6.4-8.2) g/dl Albumin 3.5 (3.4-5.0) g/dl Globulin 3.9 gm/dL Albumin/Globulin Ratio 0.9 L (1-2) Urine Color (Yellow) Urine Appearance (Clear) Urine pH (5.0-8.0) Ur Specific [place] (1.005-1.030) Urine Protein (Negative) Urine Glucose (UA) (Negative) Urine Ketones (Negative) Urine Occult Blood (Negative) Urine Nitrite (Negative) Urine Bilirubin (Negative) Urine Urobilinogen (0.2-1.0) Ur Leukocyte Esterase (Negative) Urine RBC (0-5) /hpf Urine WBC (0-5) /hpf Ur Squamous Epith Cells (0-5) /hpf Urine Bacteria (FEW) /hpf Urine Mucus (FEW) /hpf Influenza Type A RNA Negative (NEGATIVE) Influenza Type B RNA Negative (NEGATIVE) SARS-CoV-2 RNA ([place]) Positive H (NEGATIVE) MRSA (PCR) 10/14/20 10/14/20 10/14/20 Range/Units 17:21 17:21 18:34 WBC 8.32 (3.98-10.04) K/mm3 RBC 4.66 (3.98-5.22) M/mm3 Hgb 14.1 (11.2-15.7) gm/dl Hct 42.9 (34.1-44.9) % MCV 92.1 (79.4-94.8) fl MCH 30.3 (25.6-32.2) pg MCHC 32.9 (32.2-35.5) g/dl RDW Std Deviation 46.4 H (36.4-46.3) fL Plt Count 215 (182-369) K/mm3 MPV 10.9 (9.4-12.3) fl Neut % (Auto) 84.8 H (34.0-71.1) % Lymph % (Auto) 8.8 L (19.3-51.7) % [place] % (Auto) 6.0 (4.7-12.5) % Eos % (Auto) 0.1 L (0.7-5.8) Baso % (Auto) 0.1 (0.1-1.2) % Neut # (Auto) 7.05 H (1.56-6.13) K/mm3 Lymph # (Auto) 0.73 L (1.18-3.74) K/mm3 [place] # (Auto) 0.50 H (0.24-0.36) K/mm3 Eos # (Auto) 0.01 L (0.04-0.36) K/mm3 Baso # (Auto) 0.01 (0.01-0.08) K/mm3 Manual Slide Review Abnormal smear PT 26.0 H (9.7-12.0) SECONDS INR 2.47 APTT 50.3 H (21.7-31.4) SECONDS D-Dimer, Quantitative < 0.19 L (0.19-0.50) mg/L Sodium (136-145) mEq/L Potassium (3.5-5.1) mEq/L Chloride (98-107) mEq/L Carbon Dioxide (21-32) mEq/L Anion Gap (5-15) BUN (7-18) mg/dL Creatinine (0.55-1.02) mg/dL Est Cr Clr Drug Dosing mL/min Estimated GFR (MDRD) (>60) mL/min BUN/Creatinine Ratio (14-18) Glucose (70-99) mg/dL POC Glucose (70-99) mg/dL Hemoglobin A1c ( - 5.6) % Lactic Acid 0.8 (0.4-2.0) mmol/L Calcium (8.5-10.1) mg/dL Magnesium (1.8-2.4) mg/dL Ferritin (8-252) ng/ml Total Bilirubin (0.2-1.0) mg/dL AST (15-37) U/L ALT (14-59) U/L Alkaline Phosphatase (46-116) U/L Lactate Dehydrogenase (81-234) U/L C-Reactive Protein (<1.0) mg/dL Total Protein (6.4-8.2) g/dl Albumin (3.4-5.0) g/dl Globulin gm/dL Albumin/Globulin Ratio (1-2) Urine Color (Yellow) Urine Appearance (Clear) Urine pH (5.0-8.0) Ur Specific [place] (1.005-1.030) Urine Protein (Negative) Urine Glucose (UA) (Negative) Urine Ketones (Negative) Urine Occult Blood (Negative) Urine Nitrite (Negative) Urine Bilirubin (Negative) Urine Urobilinogen (0.2-1.0) Ur Leukocyte Esterase (Negative) Urine RBC (0-5) /hpf Urine WBC (0-5) /hpf Ur Squamous Epith Cells (0-5) /hpf Urine Bacteria (FEW) /hpf Urine Mucus (FEW) /hpf Influenza Type A RNA (NEGATIVE) Influenza Type B RNA (NEGATIVE) SARS-CoV-2 RNA ([place]) (NEGATIVE) MRSA (PCR) 10/14/20 10/15/20 10/15/20 Range/Units 23:26 00:30 06:08 WBC (3.98-10.04) K/mm3 RBC (3.98-5.22) M/mm3 Hgb (11.2-15.7) gm/dl Hct (34.1-44.9) % MCV (79.4-94.8) fl MCH (25.6-32.2) pg MCHC (32.2-35.5) g/dl RDW Std Deviation (36.4-46.3) fL Plt Count (182-369) K/mm3 MPV (9.4-12.3) fl Neut % (Auto) (34.0-71.1) % Lymph % (Auto) (19.3-51.7) % [place] % (Auto) (4.7-12.5) % Eos % (Auto) (0.7-5.8) Baso % (Auto) (0.1-1.2) % Neut # (Auto) (1.56-6.13) K/mm3 Lymph # (Auto) (1.18-3.74) K/mm3 [place] # (Auto) (0.24-0.36) K/mm3 Eos # (Auto) (0.04-0.36) K/mm3 Baso # (Auto) (0.01-0.08) K/mm3 Manual Slide Review PT (9.7-12.0) SECONDS INR APTT (21.7-31.4) SECONDS D-Dimer, Quantitative (0.19-0.50) mg/L Sodium (136-145) mEq/L Potassium (3.5-5.1) mEq/L Chloride (98-107) mEq/L Carbon Dioxide (21-32) mEq/L Anion Gap (5-15) BUN (7-18) mg/dL Creatinine (0.55-1.02) mg/dL Est Cr Clr Drug Dosing mL/min Estimated GFR (MDRD) (>60) mL/min BUN/Creatinine Ratio (14-18) Glucose (70-99) mg/dL POC Glucose 112 H 157 H (70-99) mg/dL Hemoglobin A1c ( - 5.6) % Lactic Acid (0.4-2.0) mmol/L Calcium (8.5-10.1) mg/dL Magnesium (1.8-2.4) mg/dL Ferritin (8-252) ng/ml Total Bilirubin (0.2-1.0) mg/dL AST (15-37) U/L ALT (14-59) U/L Alkaline Phosphatase (46-116) U/L Lactate Dehydrogenase (81-234) U/L C-Reactive Protein (<1.0) mg/dL Total Protein (6.4-8.2) g/dl Albumin (3.4-5.0) g/dl Globulin gm/dL Albumin/Globulin Ratio (1-2) Urine Color (Yellow) Urine Appearance (Clear) Urine pH (5.0-8.0) Ur Specific [place] (1.005-1.030) Urine Protein (Negative) Urine Glucose (UA) (Negative) Urine Ketones (Negative) Urine Occult Blood (Negative) Urine Nitrite (Negative) Urine Bilirubin (Negative) Urine Urobilinogen (0.2-1.0) Ur Leukocyte Esterase (Negative) Urine RBC (0-5) /hpf Urine WBC (0-5) /hpf Ur Squamous Epith Cells (0-5) /hpf Urine Bacteria (FEW) /hpf Urine Mucus (FEW) /hpf Influenza Type A RNA (NEGATIVE) Influenza Type B RNA (NEGATIVE) SARS-CoV-2 RNA ([place]) (NEGATIVE) MRSA (PCR) Negative 10/15/20 10/15/20 10/15/20 Range/Units 06:27 06:27 06:27 WBC 5.89 (3.98-10.04) K/mm3 RBC 4.84 (3.98-5.22) M/mm3 Hgb 14.3 (11.2-15.7) gm/dl Hct 45.0 H (34.1-44.9) % MCV 93.0 (79.4-94.8) fl MCH 29.5 (25.6-32.2) pg MCHC 31.8 L (32.2-35.5) g/dl RDW Std Deviation 46.5 H (36.4-46.3) fL Plt Count 218 (182-369) K/mm3 MPV 10.6 (9.4-12.3) fl Neut % (Auto) 88.8 H (34.0-71.1) % Lymph % (Auto) 8.8 L (19.3-51.7) % [place] % (Auto) 2.4 L (4.7-12.5) % Eos % (Auto) 0 L (0.7-5.8) Baso % (Auto) 0.0 L (0.1-1.2) % Neut # (Auto) 5.23 (1.56-6.13) K/mm3 Lymph # (Auto) 0.52 L (1.18-3.74) K/mm3 [place] # (Auto) 0.14 L (0.24-0.36) K/mm3 Eos # (Auto) 0.00 L (0.04-0.36) K/mm3 Baso # (Auto) 0.00 L (0.01-0.08) K/mm3 Manual Slide Review Abnormal smear PT 21.5 H (9.7-12.0) SECONDS INR 2.04 APTT (21.7-31.4) SECONDS D-Dimer, Quantitative (0.19-0.50) mg/L Sodium 141 (136-145) mEq/L Potassium 4.4 (3.5-5.1) mEq/L Chloride 104 (98-107) mEq/L Carbon Dioxide 26 (21-32) mEq/L Anion Gap 15.4 H (5-15) BUN 14 (7-18) mg/dL Creatinine 1.0 (0.55-1.02) mg/dL Est Cr Clr Drug Dosing 51.66 mL/min Estimated GFR (MDRD) 57 (>60) mL/min BUN/Creatinine Ratio 14.0 (14-18) Glucose 166 H (70-99) mg/dL POC Glucose (70-99) mg/dL Hemoglobin A1c ( - 5.6) % Lactic Acid (0.4-2.0) mmol/L Calcium 8.0 L (8.5-10.1) mg/dL Magnesium 2.0 (1.8-2.4) mg/dL Ferritin (8-252) ng/ml Total Bilirubin 0.3 (0.2-1.0) mg/dL AST 32 (15-37) U/L ALT 43 (14-59) U/L Alkaline Phosphatase 64 (46-116) U/L Lactate Dehydrogenase (81-234) U/L C-Reactive Protein 7.5 H* (<1.0) mg/dL Total Protein 7.2 (6.4-8.2) g/dl Albumin 3.2 L (3.4-5.0) g/dl Globulin 4.0 gm/dL Albumin/Globulin Ratio 0.8 L (1-2) Urine Color (Yellow) Urine Appearance (Clear) Urine pH (5.0-8.0) Ur Specific [place] (1.005-1.030) Urine Protein (Negative) Urine Glucose (UA) (Negative) Urine Ketones (Negative) Urine Occult Blood (Negative) Urine Nitrite (Negative) Urine Bilirubin (Negative) Urine Urobilinogen (0.2-1.0) Ur Leukocyte Esterase (Negative) Urine RBC (0-5) /hpf Urine WBC (0-5) /hpf Ur Squamous Epith Cells (0-5) /hpf Urine Bacteria (FEW) /hpf Urine Mucus (FEW) /hpf Influenza Type A RNA (NEGATIVE) Influenza Type B RNA (NEGATIVE) SARS-CoV-2 RNA ([place]) (NEGATIVE) MRSA (PCR) 10/15/20 10/15/20 10/15/20 Range/Units 06:27 08:30 11:02 WBC (3.98-10.04) K/mm3 RBC (3.98-5.22) M/mm3 Hgb (11.2-15.7) gm/dl Hct (34.1-44.9) % MCV (79.4-94.8) fl MCH (25.6-32.2) pg MCHC (32.2-35.5) g/dl RDW Std Deviation (36.4-46.3) fL Plt Count (182-369) K/mm3 MPV (9.4-12.3) fl Neut % (Auto) (34.0-71.1) % Lymph % (Auto) (19.3-51.7) % [place] % (Auto) (4.7-12.5) % Eos % (Auto) (0.7-5.8) Baso % (Auto) (0.1-1.2) % Neut # (Auto) (1.56-6.13) K/mm3 Lymph # (Auto) (1.18-3.74) K/mm3 [place] # (Auto) (0.24-0.36) K/mm3 Eos # (Auto) (0.04-0.36) K/mm3 Baso # (Auto) (0.01-0.08) K/mm3 Manual Slide Review PT (9.7-12.0) SECONDS INR APTT (21.7-31.4) SECONDS D-Dimer, Quantitative (0.19-0.50) mg/L Sodium (136-145) mEq/L Potassium (3.5-5.1) mEq/L Chloride (98-107) mEq/L Carbon Dioxide (21-32) mEq/L Anion Gap (5-15) BUN (7-18) mg/dL Creatinine (0.55-1.02) mg/dL Est Cr Clr Drug Dosing mL/min Estimated GFR (MDRD) (>60) mL/min BUN/Creatinine Ratio (14-18) Glucose (70-99) mg/dL POC Glucose 154 H (70-99) mg/dL Hemoglobin A1c 5.9 H ( - 5.6) % Lactic Acid (0.4-2.0) mmol/L Calcium (8.5-10.1) mg/dL Magnesium (1.8-2.4) mg/dL Ferritin (8-252) ng/ml Total Bilirubin (0.2-1.0) mg/dL AST (15-37) U/L ALT (14-59) U/L Alkaline Phosphatase (46-116) U/L Lactate Dehydrogenase (81-234) U/L C-Reactive Protein (<1.0) mg/dL Total Protein (6.4-8.2) g/dl Albumin (3.4-5.0) g/dl Globulin gm/dL Albumin/Globulin Ratio (1-2) Urine Color Yellow (Yellow) Urine Appearance Clear (Clear) Urine pH 5.5 (5.0-8.0) Ur Specific [place] 1.025 (1.005-1.030) Urine Protein Trace H (Negative) Urine Glucose (UA) Negative (Negative) Urine Ketones Negative (Negative) Urine Occult Blood Negative (Negative) Urine Nitrite Negative (Negative) Urine Bilirubin Negative (Negative) Urine Urobilinogen 0.2 (0.2-1.0) Ur Leukocyte Esterase Negative (Negative) Urine RBC Not seen (0-5) /hpf Urine WBC Not seen (0-5) /hpf Ur Squamous Epith Cells 0-5 (0-5) /hpf Urine Bacteria Few (FEW) /hpf Urine Mucus Not seen (FEW) /hpf Influenza Type A RNA (NEGATIVE) Influenza Type B RNA (NEGATIVE) SARS-CoV-2 RNA ([place]) (NEGATIVE) MRSA (PCR) Med Orders - Current: Current Medications Acetaminophen (Acetaminophen 325 Mg Tab) 650 mg PO Q4H PRN PRN Reason: Pain (mild 1-3) Last Admin: 10/15/20 09:03 Dose: 650 mg Documented by: Albuterol (Albuterol 6.7 Gm Inhaler) 0 gm INH Q4H PRN PRN Reason: Shortness of Breath Cholecalciferol (Cholecalciferol (Vitamin D3) 5,000 Unit Cap) 5,000 unit PO DAILY [facility] Last Admin: 10/15/20 09:02 Dose: 5,000 unit Documented by: Dexamethasone (Dexamethasone 4 Mg Tab) 6 mg PO DAILY [facility] Last Admin: 10/15/20 09:01 Dose: 6 mg Documented by: Duloxetine HCl (Duloxetine 30 Mg Cap) 60 mg PO DAILY [facility] Last Admin: 10/15/20 09:03 Dose: 60 mg Documented by: Hydralazine HCl (Hydralazine 20 Mg/Ml Sdv) 10 mg IVPUSH Q4H PRN PRN Reason: Hypertension Promethazine HCl 12.5 mg/ (Sodium Chloride) 50.5 mls @ 100 mls/hr IV Q6H PRN PRN Reason: Nausea/Vomiting Remdesivir 100 mg/ Sodium (Chloride) 100 mls @ 100 mls/hr IV Q24H [facility] Stop: 10/18/20 20:59 Azithromycin 500 mg/ Sodium (Chloride) 250 mls @ 250 mls/hr IV Q24H [facility] Ceftriaxone Sodium 2 gm/ (Sodium Chloride) 100 mls @ 200 mls/hr IV Q24H [facility] Insulin Human Lispro (Insulin Lispro 100 Unit/Ml 10 Ml Vial) 0 unit SUBCUT QIDACANDBED [facility]; Protocol Last Admin: 10/15/20 11:44 Dose: 1 units Documented by: Melatonin (Melatonin 3 Mg Tab) 3 mg PO BEDTIME PRN PRN Reason: Insomnia Morphine Sulfate (Morphine 2 Mg/Ml Syringe) 2 mg IVPUSH Q4H PRN PRN Reason: Pain (severe 7-10) Stop: 10/15/20 21:04 Rosuvastatin Calcium (Rosuvastatin 10 Mg Tab) 10 mg PO BEDTIME [facility] Warfarin Sodium (Warfarin 2.5 Mg Tab) 2.5 mg PO Tu@1800 [facility] Warfarin Sodium (Warfarin 5 Mg Tab) 5 mg PO SuMoWeThFrSa@1800 [facility] Zinc Sulfate (Zinc Sulfate 220 Mg Cap) 220 mg PO DAILY [facility] Last Admin: 10/15/20 09:02 Dose: 220 mg Documented by: Discontinued Medications Acetaminophen (Acetaminophen 325 Mg Tab) 650 mg PO NOW ONE Stop: 10/14/20 18:10 Last Admin: 10/14/20 18:40 Dose: 650 mg Documented by: Acetaminophen (Acetaminophen 325 Mg Tab) Confirm Administered Dose 650 mg .ROUTE .STK-MED ONE Stop: 10/14/20 18:38 Last Admin: 10/14/20 18:41 Dose: Not Given Documented by: Acetaminophen (Acetaminophen 650 Mg Supp) 650 mg RECTAL Q6H PRN PRN Reason: Pain (mild 1-3) Remdesivir 200 mg/ Sodium (Chloride) 250 mls @ 250 mls/hr IV ONETIME ONE Stop: 10/14/20 21:31 Last Admin: 10/14/20 20:54 Dose: 250 mls/hr Documented by: Ceftriaxone Sodium 2 gm/ (Sodium Chloride) 100 mls @ 200 mls/hr IV Q24H [facility] Last Admin: 10/14/20 22:05 Dose: 200 mls/hr Documented by: Azithromycin 500 mg/ Sodium (Chloride) 250 mls @ 250 mls/hr IV Q24H [facility] Last Admin: 10/14/20 23:16 Dose: 250 mls/hr Documented by: - Exam Physical Findings Comments:: General: Alert, Oriented, Cooperative, Mild Distress (Due to shortness of breath) HEENT: Conjunctiva Clear, EOMI, Pupils Equal, Pupils Reactive Neck: Supple, Full Range of Motion Lungs: Clear to Auscultation, Normal Respiratory Effort, Decreased Breath Sounds Cardiovascular: Regular Rate, Regular Rhythm, Normal S1, Normal S2 GI/Abdominal Exam: Normal Bowel Sounds, Soft, Non-Tender, No Organomegaly Extremities: Normal Inspection, Normal Range of Motion, Non-Tender, No Pedal Edema Skin: Warm, Dry, Intact Neurological: Strength Equal Bilateral, Normal Speech, Normal Tone, Sensation Intact Neuro Extensive - Mental Status: Alert, Oriented x3, Normal Mood/Affect Psychiatric: Normal Affect, Normal Mood - Patient Data Lab Results Last 24 hrs: Laboratory Results - last 24 hr 10/14/20 10/14/20 10/14/20 Range/Units 17:21 17:21 17:21 WBC (3.98-10.04) K/mm3 RBC (3.98-5.22) M/mm3 Hgb (11.2-15.7) gm/dl Hct (34.1-44.9) % MCV (79.4-94.8) fl MCH (25.6-32.2) pg MCHC (32.2-35.5) g/dl RDW Std Deviation (36.4-46.3) fL Plt Count (182-369) K/mm3 MPV (9.4-12.3) fl Neut % (Auto) (34.0-71.1) % Lymph % (Auto) (19.3-51.7) % [place] % (Auto) (4.7-12.5) % Eos % (Auto) (0.7-5.8) Baso % (Auto) (0.1-1.2) % Neut # (Auto) (1.56-6.13) K/mm3 Lymph # (Auto) (1.18-3.74) K/mm3 [place] # (Auto) (0.24-0.36) K/mm3 Eos # (Auto) (0.04-0.36) K/mm3 Baso # (Auto) (0.01-0.08) K/mm3 Manual Slide Review PT (9.7-12.0) SECONDS INR APTT (21.7-31.4) SECONDS D-Dimer, Quantitative (0.19-0.50) mg/L Sodium 136 (136-145) mEq/L Potassium 3.8 (3.5-5.1) mEq/L Chloride 101 (98-107) mEq/L Carbon Dioxide 24 (21-32) mEq/L Anion Gap 14.8 (5-15) BUN 13 (7-18) mg/dL Creatinine 1.0 (0.55-1.02) mg/dL Est Cr Clr Drug Dosing 51.66 mL/min Estimated GFR (MDRD) 57 (>60) mL/min BUN/Creatinine Ratio 13.0 L (14-18) Glucose 108 H (70-99) mg/dL POC Glucose (70-99) mg/dL Hemoglobin A1c ( - 5.6) % Lactic Acid (0.4-2.0) mmol/L Calcium 8.2 L (8.5-10.1) mg/dL Magnesium (1.8-2.4) mg/dL Ferritin 349 H (8-252) ng/ml Total Bilirubin 0.4 (0.2-1.0) mg/dL AST 38 H (15-37) U/L ALT 46 (14-59) U/L Alkaline Phosphatase 59 (46-116) U/L Lactate Dehydrogenase 239 H (81-234) U/L C-Reactive Protein 5.8 H* (<1.0) mg/dL Total Protein 7.4 (6.4-8.2) g/dl Albumin 3.5 (3.4-5.0) g/dl Globulin 3.9 gm/dL Albumin/Globulin Ratio 0.9 L (1-2) Urine Color (Yellow) Urine Appearance (Clear) Urine pH (5.0-8.0) Ur Specific [place] (1.005-1.030) Urine Protein (Negative) Urine Glucose (UA) (Negative) Urine Ketones (Negative) Urine Occult Blood (Negative) Urine Nitrite (Negative) Urine Bilirubin (Negative) Urine Urobilinogen (0.2-1.0) Ur Leukocyte Esterase (Negative) Urine RBC (0-5) /hpf Urine WBC (0-5) /hpf Ur Squamous Epith Cells (0-5) /hpf Urine Bacteria (FEW) /hpf Urine Mucus (FEW) /hpf Influenza Type A RNA Negative (NEGATIVE) Influenza Type B RNA Negative (NEGATIVE) SARS-CoV-2 RNA ([place]) Positive H (NEGATIVE) MRSA (PCR) 10/14/20 10/14/20 10/14/20 Range/Units 17:21 17:21 18:34 WBC 8.32 (3.98-10.04) K/mm3 RBC 4.66 (3.98-5.22) M/mm3 Hgb 14.1 (11.2-15.7) gm/dl Hct 42.9 (34.1-44.9) % MCV 92.1 (79.4-94.8) fl MCH 30.3 (25.6-32.2) pg MCHC 32.9 (32.2-35.5) g/dl RDW Std Deviation 46.4 H (36.4-46.3) fL Plt Count 215 (182-369) K/mm3 MPV 10.9 (9.4-12.3) fl Neut % (Auto) 84.8 H (34.0-71.1) % Lymph % (Auto) 8.8 L (19.3-51.7) % [place] % (Auto) 6.0 (4.7-12.5) % Eos % (Auto) 0.1 L (0.7-5.8) Baso % (Auto) 0.1 (0.1-1.2) % Neut # (Auto) 7.05 H (1.56-6.13) K/mm3 Lymph # (Auto) 0.73 L (1.18-3.74) K/mm3 [place] # (Auto) 0.50 H (0.24-0.36) K/mm3 Eos # (Auto) 0.01 L (0.04-0.36) K/mm3 Baso # (Auto) 0.01 (0.01-0.08) K/mm3 Manual Slide Review Abnormal smear PT 26.0 H (9.7-12.0) SECONDS INR 2.47 APTT 50.3 H (21.7-31.4) SECONDS D-Dimer, Quantitative < 0.19 L (0.19-0.50) mg/L Sodium (136-145) mEq/L Potassium (3.5-5.1) mEq/L Chloride (98-107) mEq/L Carbon Dioxide (21-32) mEq/L Anion Gap (5-15) BUN (7-18) mg/dL Creatinine (0.55-1.02) mg/dL Est Cr Clr Drug Dosing mL/min Estimated GFR (MDRD) (>60) mL/min BUN/Creatinine Ratio (14-18) Glucose (70-99) mg/dL POC Glucose (70-99) mg/dL Hemoglobin A1c ( - 5.6) % Lactic Acid 0.8 (0.4-2.0) mmol/L Calcium (8.5-10.1) mg/dL Magnesium (1.8-2.4) mg/dL Ferritin (8-252) ng/ml Total Bilirubin (0.2-1.0) mg/dL AST (15-37) U/L ALT (14-59) U/L Alkaline Phosphatase (46-116) U/L Lactate Dehydrogenase (81-234) U/L C-Reactive Protein (<1.0) mg/dL Total Protein (6.4-8.2) g/dl Albumin (3.4-5.0) g/dl Globulin gm/dL Albumin/Globulin Ratio (1-2) Urine Color (Yellow) Urine Appearance (Clear) Urine pH (5.0-8.0) Ur Specific [place] (1.005-1.030) Urine Protein (Negative) Urine Glucose (UA) (Negative) Urine Ketones (Negative) Urine Occult Blood (Negative) Urine Nitrite (Negative) Urine Bilirubin (Negative) Urine Urobilinogen (0.2-1.0) Ur Leukocyte Esterase (Negative) Urine RBC (0-5) /hpf Urine WBC (0-5) /hpf Ur Squamous Epith Cells (0-5) /hpf Urine Bacteria (FEW) /hpf Urine Mucus (FEW) /hpf Influenza Type A RNA (NEGATIVE) Influenza Type B RNA (NEGATIVE) SARS-CoV-2 RNA ([place]) (NEGATIVE) MRSA (PCR) 10/14/20 10/15/20 10/15/20 Range/Units 23:26 00:30 06:08 WBC (3.98-10.04) K/mm3 RBC (3.98-5.22) M/mm3 Hgb (11.2-15.7) gm/dl Hct (34.1-44.9) % MCV (79.4-94.8) fl MCH (25.6-32.2) pg MCHC (32.2-35.5) g/dl RDW Std Deviation (36.4-46.3) fL Plt Count (182-369) K/mm3 MPV (9.4-12.3) fl Neut % (Auto) (34.0-71.1) % Lymph % (Auto) (19.3-51.7) % [place] % (Auto) (4.7-12.5) % Eos % (Auto) (0.7-5.8) Baso % (Auto) (0.1-1.2) % Neut # (Auto) (1.56-6.13) K/mm3 Lymph # (Auto) (1.18-3.74) K/mm3 [place] # (Auto) (0.24-0.36) K/mm3 Eos # (Auto) (0.04-0.36) K/mm3 Baso # (Auto) (0.01-0.08) K/mm3 Manual Slide Review PT (9.7-12.0) SECONDS INR APTT (21.7-31.4) SECONDS D-Dimer, Quantitative (0.19-0.50) mg/L Sodium (136-145) mEq/L Potassium (3.5-5.1) mEq/L Chloride (98-107) mEq/L Carbon Dioxide (21-32) mEq/L Anion Gap (5-15) BUN (7-18) mg/dL Creatinine (0.55-1.02) mg/dL Est Cr Clr Drug Dosing mL/min Estimated GFR (MDRD) (>60) mL/min BUN/Creatinine Ratio (14-18) Glucose (70-99) mg/dL POC Glucose 112 H 157 H (70-99) mg/dL Hemoglobin A1c ( - 5.6) % Lactic Acid (0.4-2.0) mmol/L Calcium (8.5-10.1) mg/dL Magnesium (1.8-2.4) mg/dL Ferritin (8-252) ng/ml Total Bilirubin (0.2-1.0) mg/dL AST (15-37) U/L ALT (14-59) U/L Alkaline Phosphatase (46-116) U/L Lactate Dehydrogenase (81-234) U/L C-Reactive Protein (<1.0) mg/dL Total Protein (6.4-8.2) g/dl Albumin (3.4-5.0) g/dl Globulin gm/dL Albumin/Globulin Ratio (1-2) Urine Color (Yellow) Urine Appearance (Clear) Urine pH (5.0-8.0) Ur Specific [place] (1.005-1.030) Urine Protein (Negative) Urine Glucose (UA) (Negative) Urine Ketones (Negative) Urine Occult Blood (Negative) Urine Nitrite (Negative) Urine Bilirubin (Negative) Urine Urobilinogen (0.2-1.0) Ur Leukocyte Esterase (Negative) Urine RBC (0-5) /hpf Urine WBC (0-5) /hpf Ur Squamous Epith Cells (0-5) /hpf Urine Bacteria (FEW) /hpf Urine Mucus (FEW) /hpf Influenza Type A RNA (NEGATIVE) Influenza Type B RNA (NEGATIVE) SARS-CoV-2 RNA ([place]) (NEGATIVE) MRSA (PCR) Negative 10/15/20 10/15/20 10/15/20 Range/Units 06:27 06:27 06:27 WBC 5.89 (3.98-10.04) K/mm3 RBC 4.84 (3.98-5.22) M/mm3 Hgb 14.3 (11.2-15.7) gm/dl Hct 45.0 H (34.1-44.9) % MCV 93.0 (79.4-94.8) fl MCH 29.5 (25.6-32.2) pg MCHC 31.8 L (32.2-35.5) g/dl RDW Std Deviation 46.5 H (36.4-46.3) fL Plt Count 218 (182-369) K/mm3 MPV 10.6 (9.4-12.3) fl Neut % (Auto) 88.8 H (34.0-71.1) % Lymph % (Auto) 8.8 L (19.3-51.7) % [place] % (Auto) 2.4 L (4.7-12.5) % Eos % (Auto) 0 L (0.7-5.8) Baso % (Auto) 0.0 L (0.1-1.2) % Neut # (Auto) 5.23 (1.56-6.13) K/mm3 Lymph # (Auto) 0.52 L (1.18-3.74) K/mm3 [place] # (Auto) 0.14 L (0.24-0.36) K/mm3 Eos # (Auto) 0.00 L (0.04-0.36) K/mm3 Baso # (Auto) 0.00 L (0.01-0.08) K/mm3 Manual Slide Review Abnormal smear PT 21.5 H (9.7-12.0) SECONDS INR 2.04 APTT (21.7-31.4) SECONDS D-Dimer, Quantitative (0.19-0.50) mg/L Sodium 141 (136-145) mEq/L Potassium 4.4 (3.5-5.1) mEq/L Chloride 104 (98-107) mEq/L Carbon Dioxide 26 (21-32) mEq/L Anion Gap 15.4 H (5-15) BUN 14 (7-18) mg/dL Creatinine 1.0 (0.55-1.02) mg/dL Est Cr Clr Drug Dosing 51.66 mL/min Estimated GFR (MDRD) 57 (>60) mL/min BUN/Creatinine Ratio 14.0 (14-18) Glucose 166 H (70-99) mg/dL POC Glucose (70-99) mg/dL Hemoglobin A1c ( - 5.6) % Lactic Acid (0.4-2.0) mmol/L Calcium 8.0 L (8.5-10.1) mg/dL Magnesium 2.0 (1.8-2.4) mg/dL Ferritin (8-252) ng/ml Total Bilirubin 0.3 (0.2-1.0) mg/dL AST 32 (15-37) U/L ALT 43 (14-59) U/L Alkaline Phosphatase 64 (46-116) U/L Lactate Dehydrogenase (81-234) U/L C-Reactive Protein 7.5 H* (<1.0) mg/dL Total Protein 7.2 (6.4-8.2) g/dl Albumin 3.2 L (3.4-5.0) g/dl Globulin 4.0 gm/dL Albumin/Globulin Ratio 0.8 L (1-2) Urine Color (Yellow) Urine Appearance (Clear) Urine pH (5.0-8.0) Ur Specific [place] (1.005-1.030) Urine Protein (Negative) Urine Glucose (UA) (Negative) Urine Ketones (Negative) Urine Occult Blood (Negative) Urine Nitrite (Negative) Urine Bilirubin (Negative) Urine Urobilinogen (0.2-1.0) Ur Leukocyte Esterase (Negative) Urine RBC (0-5) /hpf Urine WBC (0-5) /hpf Ur Squamous Epith Cells (0-5) /hpf Urine Bacteria (FEW) /hpf Urine Mucus (FEW) /hpf Influenza Type A RNA (NEGATIVE) Influenza Type B RNA (NEGATIVE) SARS-CoV-2 RNA ([place]) (NEGATIVE) MRSA (PCR) 10/15/20 10/15/20 10/15/20 Range/Units 06:27 08:30 11:02 WBC (3.98-10.04) K/mm3 RBC (3.98-5.22) M/mm3 Hgb (11.2-15.7) gm/dl Hct (34.1-44.9) % MCV (79.4-94.8) fl MCH (25.6-32.2) pg MCHC (32.2-35.5) g/dl RDW Std Deviation (36.4-46.3) fL Plt Count (182-369) K/mm3 MPV (9.4-12.3) fl Neut % (Auto) (34.0-71.1) % Lymph % (Auto) (19.3-51.7) % [place] % (Auto) (4.7-12.5) % Eos % (Auto) (0.7-5.8) Baso % (Auto) (0.1-1.2) % Neut # (Auto) (1.56-6.13) K/mm3 Lymph # (Auto) (1.18-3.74) K/mm3 [place] # (Auto) (0.24-0.36) K/mm3 Eos # (Auto) (0.04-0.36) K/mm3 Baso # (Auto) (0.01-0.08) K/mm3 Manual Slide Review PT (9.7-12.0) SECONDS INR APTT (21.7-31.4) SECONDS D-Dimer, Quantitative (0.19-0.50) mg/L Sodium (136-145) mEq/L Potassium (3.5-5.1) mEq/L Chloride (98-107) mEq/L Carbon Dioxide (21-32) mEq/L Anion Gap (5-15) BUN (7-18) mg/dL Creatinine (0.55-1.02) mg/dL Est Cr Clr Drug Dosing mL/min Estimated GFR (MDRD) (>60) mL/min BUN/Creatinine Ratio (14-18) Glucose (70-99) mg/dL POC Glucose 154 H (70-99) mg/dL Hemoglobin A1c 5.9 H ( - 5.6) % Lactic Acid (0.4-2.0) mmol/L Calcium (8.5-10.1) mg/dL Magnesium (1.8-2.4) mg/dL Ferritin (8-252) ng/ml Total Bilirubin (0.2-1.0) mg/dL AST (15-37) U/L ALT (14-59) U/L Alkaline Phosphatase (46-116) U/L Lactate Dehydrogenase (81-234) U/L C-Reactive Protein (<1.0) mg/dL Total Protein (6.4-8.2) g/dl Albumin (3.4-5.0) g/dl Globulin gm/dL Albumin/Globulin Ratio (1-2) Urine Color Yellow (Yellow) Urine Appearance Clear (Clear) Urine pH 5.5 (5.0-8.0) Ur Specific [place] 1.025 (1.005-1.030) Urine Protein Trace H (Negative) Urine Glucose (UA) Negative (Negative) Urine Ketones Negative (Negative) Urine Occult Blood Negative (Negative) Urine Nitrite Negative (Negative) Urine Bilirubin Negative (Negative) Urine Urobilinogen 0.2 (0.2-1.0) Ur Leukocyte Esterase Negative (Negative) Urine RBC Not seen (0-5) /hpf Urine WBC Not seen (0-5) /hpf Ur Squamous Epith Cells 0-5 (0-5) /hpf Urine Bacteria Few (FEW) /hpf Urine Mucus Not seen (FEW) /hpf Influenza Type A RNA (NEGATIVE) Influenza Type B RNA (NEGATIVE) SARS-CoV-2 RNA ([place]) (NEGATIVE) MRSA (PCR) Result Diagrams: 10/15/20 06:27 10/15/20 06:27 Sepsis Event Note - Evaluation Sepsis Screening Result: No Definite Risk - Focused Exam Vital Signs: Vital Signs Temp Pulse Resp BP Pulse Ox Pulse Ox 10/15/20 11:03 36.6 C 93 20 123/71 93 L 10/15/20 09:12 94 L 10/15/20 07:19 36.6 C 101 H 20 114/69 94 L 10/15/20 06:39 98 10/15/20 05:33 36.4 C 102 H 18 116/62 94 L 10/15/20 01:53 36.9 C 107 H 93 L - Problem List Review Problem List Initiated/Reviewed/Updated: Yes - My Orders Last 24 Hours: My Active Orders 10/14/20 Dinner Regular Diet [DIET] 10/14/20 21:03 Cardiac Monitoring [RC] CONTINUOUS Intake and Output [RC] 04,16 Oxygen Therapy [RC] PRN Pulse Oximetry [RC] CONTINUOUS Up to Chair [RC] BID VTE/DVT Education [RC] DAILY Vital Signs [RC] Q4HR CULTURE SPUTUM + SMEAR [RM] Stat Morphine 2 mg IVPUSH Q4H PRN Promethazine [Phenergan] 12.5 mg Sodium Chloride 0.9% [Normal Saline] 50 ml IV Q6H 10/14/20 21:14 Melatonin 3 mg PO BEDTIME PRN 10/14/20 21:15 Cholecalciferol (Vitamin D3) [Vitamin D3] 5,000 unit PO DAILY dexAMETHasone 6 mg PO DAILY 10/14/20 21:16 Albuterol [Proventil HFA] 0 gm INH Q4H PRN hydrALAZINE [Apresoline] 10 mg IVPUSH Q4H PRN 10/14/20 21:17 RT Post Treatment Assessment [RC] Click to Edit RT Pre-Treatment Assessment [RC] Click to Edit 10/14/20 21:21 Incentive Spirometry [RT Incentive Spirometry] [RC] Q2HWA 10/14/20 22:00 Insulin Lispro [HumaLOG] See Protocol SUBCUT QIDACANDBED 10/15/20 00:30 CULTURE MRSA [RM] Stat 10/15/20 09:00 Acetaminophen [TylenoL] 650 mg PO Q4H PRN DULoxetine [Cymbalta] 60 mg PO DAILY Zinc Sulfate [Zincate] 220 mg PO DAILY 10/15/20 10:09 Code Status [Resuscitation Status] Routine 10/15/20 18:00 Warfarin [Coumadin] 5 mg PO [id number]@1800 10/15/20 20:00 Remdesivir 100 mg Sodium Chloride 0.9% [Normal Saline] 100 ml IV Q24H 10/15/20 21:00 Rosuvastatin [Crestor] 10 mg PO BEDTIME cefTRIAXone [Rocephin] 2 gm Sodium Chloride 0.9% [Normal Saline] 100 ml IV Q24H 10/15/20 21:30 Azithromycin [Zithromax] 500 mg Sodium Chloride 0.9% [Normal Saline (AdvBag)] 250 ml IV Q24H 10/16/20 05:00 CBC WITH AUTO DIFF [HEME] DAILY COMPREHENSIVE METABOLIC PN,CMP [CHEM] DAILY CRP [C-REACTIVE PROTEIN] [CHEM] DAILY INR,PT,PROTHROMBIN TIME [COAG] DAILY 10/17/20 05:00 CBC WITH AUTO DIFF [HEME] DAILY COMPREHENSIVE METABOLIC PN,CMP [CHEM] DAILY CRP [C-REACTIVE PROTEIN] [CHEM] DAILY INR,PT,PROTHROMBIN TIME [COAG] DAILY 10/18/20 05:00 CBC WITH AUTO DIFF [HEME] DAILY COMPREHENSIVE METABOLIC PN,CMP [CHEM] DAILY CRP [C-REACTIVE PROTEIN] [CHEM] DAILY INR,PT,PROTHROMBIN TIME [COAG] DAILY 10/19/20 05:00 CBC WITH AUTO DIFF [HEME] DAILY COMPREHENSIVE METABOLIC PN,CMP [CHEM] DAILY CRP [C-REACTIVE PROTEIN] [CHEM] DAILY INR,PT,PROTHROMBIN TIME [COAG] DAILY 10/19/20 18:00 Warfarin [Coumadin] 2.5 mg PO Tu@1800 - Plan Plan:: Patient is a 60-year-old female with a history of hypertension, 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 Covid positive in the ER Assessment: Acute hypoxic respiratory failure scoliosis -Etiology could be pneumonia, emphysema -Not on home oxygen -Pulse ox -Oxygen therapy, high flow/as needed to keep oxygen saturation greater than 92% Pneumonia, Covid 19 or CAP -CXR -no acute change. But i feel patient has a clinical pneumonia -Covid 19 test positive in in the ER -Symptoms started 3 to 4 days ago -Ferritin 349, D-dimer <0.19 (chronic use of warfarin), CRP 5.8 on admission -MRSA screen negative Transaminitis -Could be due to infection of COVID-19 -AST 38. [place] 0.4 and Al phos 59 on admission -AST normalized today Hx of COPD -As per patient, she has emphysema -Former smoker, quit smoking 6 years ago HTN -Home medication does not include blood pressure medication -Hydralazine as needed Hx of PE and DVT -on warfarin -Therapeutic INR 2.47 on admission Plan: 1. We will admitted to telemetry as an inpatient 2. RT to oxygen to keep saturations greater than 92% Remdesivir 200mg iv x 1 and then 100mg iv daily x 4. Ceftriaxone, azithromycin, dexamethasone 6 mg p.o. daily and continue warfarin. Inhalers She does not have diabetes (hemoglobin A1c 5.9) but I will put her on insulin sliding scale since she is started on high-dose steroid Continue incentive spirometry and [place] Dietitian consult regarding nutritional needs PT/OT to eval and treat and increase activity Prone positioning D-dimer, CRP, and liver functions daily Monitor electrolytes. replace and repeat it if necessary manager services for discharge planning Monitor blood sugars 3. Repeat the liver function in morning 4. Repeat INR daily in morning 5. DVT prophylaxis: Warfarin 6. CODE STATUS: Full Deposition: 2 to 3 days
[2020-10-15] MEDS: Albuterol 6.7 GM Inhaler INH PRN ×2 (17:25→20:16)
[2020-10-15] MEDS: Warfarin 5 MG Tab PO SCH (17:55)
[2020-10-15] MEDS: REMDESIVIR 100 MG in Sodium Chloride 0.9% 100 ML IV SCH (20:28)
[2020-10-15] MEDS: Rosuvastatin 10 MG Tab PO SCH (20:31)
[2020-10-15] MEDS: cefTRIAXone 2 GM in Sodium Chloride 0.9% 100 ML IV SCH (21:55)
[2020-10-15] MEDS: Azithromycin 500 MG in Sodium Chloride 0.9% 250 ML IV SCH (22:32)
[2020-10-16] MEDS: Insulin Lispro 100 UNIT/ML 10 ML Vial SUBCUT SCH ×4 (07:52→21:57)
[2020-10-16] MEDS: Cholecalciferol (Vitamin D3) 5,000 UNIT Cap PO SCH (08:04)
[2020-10-16] MEDS: Dexamethasone 4 MG Tab PO SCH (08:05)
[2020-10-16] MEDS: DULoxetine 30 MG Cap PO SCH (08:05)
[2020-10-16] MEDS: Zinc Sulfate 220 MG Cap PO SCH (08:05)
--- NOTE | 2020-10-16 08:23 | PCM.PN ---
- General Info Date of Service: 10/16/20 Admission Dx/Problem (Free Text): Admission Diagnosis/Problem Admission Diagnosis/Problem Hypoxia Subjective Update: In to see Judy. She reports she had a rough day yesterday but feels better today. She is down to 1.5 L of oxygen. She has been utilizing her incentive spirometry and Acapella but reports she has been having some difficulty with proning. We discussed plan of care and importance of Acapella/I-S/proning. Labs today show WBC of 9.63. Hemoglobin 14.1. Platelet 231,000. INR is 2.23. Sodium 145. Potassium 1.4. GFR greater than 60. Glucose range 1 14-1 54. CRP is 4.8. We will continue Rocephin and azithromycin along with remdesivir. She has been ambulating around the room. Continue current treatment plan. Functional Status: Reports: Pain Controlled, Tolerating Diet, Ambulating, Urinating, Incentive Spirometry, Other (Acapella ). Denies: New Symptoms - Review of Systems General: Reports: No Symptoms, Fever. Denies: Weakness, Fatigue, Malaise, Chills HEENT: Reports: No Symptoms. Denies: Headaches, Sore Throat Pulmonary: Reports: Shortness of Breath, Cough, Sputum. Denies: Pleuritic Chest Pain, Wheezing Cardiovascular: Reports: No Symptoms, Dyspnea on Exertion. Denies: Chest Pain, Palpitations, Edema Gastrointestinal: Reports: No Symptoms. Denies: Abdominal Pain, Constipation, Diarrhea, Nausea, Vomiting Genitourinary: Reports: Incontinence (chronic ). Denies: Pain Musculoskeletal: Reports: No Symptoms Skin: Reports: No Symptoms. Denies: Cyanosis Neurological: Reports: No Symptoms. Denies: Confusion, Pre-Existing Deficit, Difficulty Walking, Gait Disturbance Psychiatric: Reports: No Symptoms - Patient Data Vitals - Most Recent: Last Vital Signs Temp 97.7 F 10/16/20 07:17 Pulse 84 10/16/20 07:17 Resp 20 10/16/20 07:17 BP 107/74 10/16/20 07:17 Pulse Ox 97 10/16/20 07:17 Weight - Most Recent: 221 lb 1.6 oz I&O - Last 24 Hours: Intake & Output 10/15/20 10/16/20 10/16/20 22:59 06:59 14:59 Intake Total 860 570 Output Total 1600 700 Balance -740 -130 Lab Results Last 24 Hours: Laboratory Results - last 24 hr 10/15/20 10/15/20 10/15/20 Range/Units 08:30 11:02 16:36 WBC (3.98-10.04) K/mm3 RBC (3.98-5.22) M/mm3 Hgb (11.2-15.7) gm/dl Hct (34.1-44.9) % MCV (79.4-94.8) fl MCH (25.6-32.2) pg MCHC (32.2-35.5) g/dl RDW Std Deviation (36.4-46.3) fL Plt Count (182-369) K/mm3 MPV (9.4-12.3) fl Neut % (Auto) (34.0-71.1) % Lymph % (Auto) (19.3-51.7) % [place] % (Auto) (4.7-12.5) % Eos % (Auto) (0.7-5.8) Baso % (Auto) (0.1-1.2) % Neut # (Auto) (1.56-6.13) K/mm3 Lymph # (Auto) (1.18-3.74) K/mm3 [place] # (Auto) (0.24-0.36) K/mm3 Eos # (Auto) (0.04-0.36) K/mm3 Baso # (Auto) (0.01-0.08) K/mm3 Manual Slide Review PT (9.7-12.0) SECONDS INR Sodium (136-145) mEq/L Potassium (3.5-5.1) mEq/L Chloride (98-107) mEq/L Carbon Dioxide (21-32) mEq/L Anion Gap (5-15) BUN (7-18) mg/dL Creatinine (0.55-1.02) mg/dL Est Cr Clr Drug Dosing mL/min Estimated GFR (MDRD) (>60) mL/min BUN/Creatinine Ratio (14-18) Glucose (70-99) mg/dL POC Glucose 154 H 135 H (70-99) mg/dL Calcium (8.5-10.1) mg/dL Total Bilirubin (0.2-1.0) mg/dL AST (15-37) U/L ALT (14-59) U/L Alkaline Phosphatase (46-116) U/L C-Reactive Protein (<1.0) mg/dL Total Protein (6.4-8.2) g/dl Albumin (3.4-5.0) g/dl Globulin gm/dL Albumin/Globulin Ratio (1-2) Urine Color Yellow (Yellow) Urine Appearance Clear (Clear) Urine pH 5.5 (5.0-8.0) Ur Specific [place] 1.025 (1.005-1.030) Urine Protein Trace H (Negative) Urine Glucose (UA) Negative (Negative) Urine Ketones Negative (Negative) Urine Occult Blood Negative (Negative) Urine Nitrite Negative (Negative) Urine Bilirubin Negative (Negative) Urine Urobilinogen 0.2 (0.2-1.0) Ur Leukocyte Esterase Negative (Negative) Urine RBC Not seen (0-5) /hpf Urine WBC Not seen (0-5) /hpf Ur Squamous Epith Cells 0-5 (0-5) /hpf Urine Bacteria Few (FEW) /hpf Urine Mucus Not seen (FEW) /hpf 10/15/20 10/16/20 10/16/20 Range/Units 21:27 04:52 04:52 WBC 9.63 (3.98-10.04) K/mm3 RBC 4.73 (3.98-5.22) M/mm3 Hgb 14.1 (11.2-15.7) gm/dl Hct 44.1 (34.1-44.9) % MCV 93.2 (79.4-94.8) fl MCH 29.8 (25.6-32.2) pg MCHC 32.0 L (32.2-35.5) g/dl RDW Std Deviation 46.6 H (36.4-46.3) fL Plt Count 231 (182-369) K/mm3 MPV 10.7 (9.4-12.3) fl Neut % (Auto) 82.7 H (34.0-71.1) % Lymph % (Auto) 9.4 L (19.3-51.7) % [place] % (Auto) 7.6 (4.7-12.5) % Eos % (Auto) 0 L (0.7-5.8) Baso % (Auto) 0.1 (0.1-1.2) % Neut # (Auto) 7.96 H (1.56-6.13) K/mm3 Lymph # (Auto) 0.91 L (1.18-3.74) K/mm3 [place] # (Auto) 0.73 H (0.24-0.36) K/mm3 Eos # (Auto) 0.00 L (0.04-0.36) K/mm3 Baso # (Auto) 0.01 (0.01-0.08) K/mm3 Manual Slide Review Abnormal smear PT (9.7-12.0) SECONDS INR Sodium 145 (136-145) mEq/L Potassium 4.4 (3.5-5.1) mEq/L Chloride 108 H (98-107) mEq/L Carbon Dioxide 27 (21-32) mEq/L Anion Gap 14.4 (5-15) BUN 20 H (7-18) mg/dL Creatinine 0.9 (0.55-1.02) mg/dL Est Cr Clr Drug Dosing 57.40 mL/min Estimated GFR (MDRD) > 60 (>60) mL/min BUN/Creatinine Ratio 22.2 H (14-18) Glucose 124 H (70-99) mg/dL POC Glucose 215 H (70-99) mg/dL Calcium 8.2 L (8.5-10.1) mg/dL Total Bilirubin 0.2 (0.2-1.0) mg/dL AST 33 (15-37) U/L ALT 40 (14-59) U/L Alkaline Phosphatase 57 (46-116) U/L C-Reactive Protein 4.8 H* (<1.0) mg/dL Total Protein 7.0 (6.4-8.2) g/dl Albumin 3.0 L (3.4-5.0) g/dl Globulin 4.0 gm/dL Albumin/Globulin Ratio 0.8 L (1-2) Urine Color (Yellow) Urine Appearance (Clear) Urine pH (5.0-8.0) Ur Specific [place] (1.005-1.030) Urine Protein (Negative) Urine Glucose (UA) (Negative) Urine Ketones (Negative) Urine Occult Blood (Negative) Urine Nitrite (Negative) Urine Bilirubin (Negative) Urine Urobilinogen (0.2-1.0) Ur Leukocyte Esterase (Negative) Urine RBC (0-5) /hpf Urine WBC (0-5) /hpf Ur Squamous Epith Cells (0-5) /hpf Urine Bacteria (FEW) /hpf Urine Mucus (FEW) /hpf 10/16/20 10/16/20 Range/Units 04:53 05:50 WBC (3.98-10.04) K/mm3 RBC (3.98-5.22) M/mm3 Hgb (11.2-15.7) gm/dl Hct (34.1-44.9) % MCV (79.4-94.8) fl MCH (25.6-32.2) pg MCHC (32.2-35.5) g/dl RDW Std Deviation (36.4-46.3) fL Plt Count (182-369) K/mm3 MPV (9.4-12.3) fl Neut % (Auto) (34.0-71.1) % Lymph % (Auto) (19.3-51.7) % [place] % (Auto) (4.7-12.5) % Eos % (Auto) (0.7-5.8) Baso % (Auto) (0.1-1.2) % Neut # (Auto) (1.56-6.13) K/mm3 Lymph # (Auto) (1.18-3.74) K/mm3 [place] # (Auto) (0.24-0.36) K/mm3 Eos # (Auto) (0.04-0.36) K/mm3 Baso # (Auto) (0.01-0.08) K/mm3 Manual Slide Review PT 23.5 H (9.7-12.0) SECONDS INR 2.23 Sodium (136-145) mEq/L Potassium (3.5-5.1) mEq/L Chloride (98-107) mEq/L Carbon Dioxide (21-32) mEq/L Anion Gap (5-15) BUN (7-18) mg/dL Creatinine (0.55-1.02) mg/dL Est Cr Clr Drug Dosing mL/min Estimated GFR (MDRD) (>60) mL/min BUN/Creatinine Ratio (14-18) Glucose (70-99) mg/dL POC Glucose 114 H (70-99) mg/dL Calcium (8.5-10.1) mg/dL Total Bilirubin (0.2-1.0) mg/dL AST (15-37) U/L ALT (14-59) U/L Alkaline Phosphatase (46-116) U/L C-Reactive Protein (<1.0) mg/dL Total Protein (6.4-8.2) g/dl Albumin (3.4-5.0) g/dl Globulin gm/dL Albumin/Globulin Ratio (1-2) Urine Color (Yellow) Urine Appearance (Clear) Urine pH (5.0-8.0) Ur Specific [place] (1.005-1.030) Urine Protein (Negative) Urine Glucose (UA) (Negative) Urine Ketones (Negative) Urine Occult Blood (Negative) Urine Nitrite (Negative) Urine Bilirubin (Negative) Urine Urobilinogen (0.2-1.0) Ur Leukocyte Esterase (Negative) Urine RBC (0-5) /hpf Urine WBC (0-5) /hpf Ur Squamous Epith Cells (0-5) /hpf Urine Bacteria (FEW) /hpf Urine Mucus (FEW) /hpf [place] Results Last 24 Hours: Microbiology 10/15/20 20:15 Gram Stain - Final Sputum - Expectorated 10/14/20 20:40 Aerobic Blood Culture - Preliminary Blood - Venous - Lab Draw NO GROWTH AFTER 1 DAY Anaerobic Blood Culture - Preliminary NO GROWTH AFTER 1 DAY 10/14/20 20:35 Aerobic Blood Culture - Preliminary Blood - Venous NO GROWTH AFTER 1 DAY Anaerobic Blood Culture - Preliminary NO GROWTH AFTER 1 DAY Med Orders - Current: Current Medications Acetaminophen (Acetaminophen 325 Mg Tab) 650 mg PO Q4H PRN PRN Reason: Pain (mild 1-3) Last Admin: 10/15/20 09:03 Dose: 650 mg Documented by: Albuterol (Albuterol 6.7 Gm Inhaler) 0 gm INH Q4H PRN PRN Reason: Shortness of Breath Last Admin: 10/15/20 20:16 Dose: 2 inhaler Documented by: Cholecalciferol (Cholecalciferol (Vitamin D3) 5,000 Unit Cap) 5,000 unit PO DAILY [facility] Last Admin: 10/16/20 08:04 Dose: 5,000 unit Documented by: Dexamethasone (Dexamethasone 4 Mg Tab) 6 mg PO DAILY [facility] Last Admin: 10/16/20 08:05 Dose: 6 mg Documented by: Duloxetine HCl (Duloxetine 30 Mg Cap) 60 mg PO DAILY [facility] Last Admin: 10/16/20 08:05 Dose: 60 mg Documented by: Hydralazine HCl (Hydralazine 20 Mg/Ml Sdv) 10 mg IVPUSH Q4H PRN PRN Reason: Hypertension Promethazine HCl 12.5 mg/ (Sodium Chloride) 50.5 mls @ 100 mls/hr IV Q6H PRN PRN Reason: Nausea/Vomiting Remdesivir 100 mg/ Sodium (Chloride) 100 mls @ 100 mls/hr IV Q24H [facility] Stop: 10/18/20 20:59 Last Admin: 10/15/20 20:28 Dose: 100 mls/hr Documented by: Azithromycin 500 mg/ Sodium (Chloride) 250 mls @ 250 mls/hr IV Q24H [facility] Last Admin: 10/15/20 22:32 Dose: 250 mls/hr Documented by: Ceftriaxone Sodium 2 gm/ (Sodium Chloride) 100 mls @ 200 mls/hr IV Q24H [facility] Last Admin: 10/15/20 21:55 Dose: 200 mls/hr Documented by: Insulin Human Lispro (Insulin Lispro 100 Unit/Ml 10 Ml Vial) 0 unit SUBCUT QIDACANDBED [facility]; Protocol Last Admin: 10/16/20 07:52 Dose: Not Given Documented by: Melatonin (Melatonin 3 Mg Tab) 3 mg PO BEDTIME PRN PRN Reason: Insomnia Rosuvastatin Calcium (Rosuvastatin 10 Mg Tab) 10 mg PO BEDTIME [facility] Last Admin: 10/15/20 20:31 Dose: 10 mg Documented by: Warfarin Sodium (Warfarin 2.5 Mg Tab) 2.5 mg PO Tu@1800 [facility] Warfarin Sodium (Warfarin 5 Mg Tab) 5 mg PO SuMoWeThFrSa@1800 [facility] Last Admin: 10/15/20 17:55 Dose: 5 mg Documented by: Zinc Sulfate (Zinc Sulfate 220 Mg Cap) 220 mg PO DAILY [facility] Last Admin: 10/16/20 08:05 Dose: 220 mg Documented by: Discontinued Medications Acetaminophen (Acetaminophen 325 Mg Tab) 650 mg PO NOW ONE Stop: 10/14/20 18:10 Last Admin: 10/14/20 18:40 Dose: 650 mg Documented by: Acetaminophen (Acetaminophen 325 Mg Tab) Confirm Administered Dose 650 mg .ROUTE .STK-MED ONE Stop: 10/14/20 18:38 Last Admin: 10/14/20 18:41 Dose: Not Given Documented by: Acetaminophen (Acetaminophen 650 Mg Supp) 650 mg RECTAL Q6H PRN PRN Reason: Pain (mild 1-3) Remdesivir 200 mg/ Sodium (Chloride) 250 mls @ 250 mls/hr IV ONETIME ONE Stop: 10/14/20 21:31 Last Admin: 10/14/20 20:54 Dose: 250 mls/hr Documented by: Ceftriaxone Sodium 2 gm/ (Sodium Chloride) 100 mls @ 200 mls/hr IV Q24H [facility] Last Admin: 10/14/20 22:05 Dose: 200 mls/hr Documented by: Azithromycin 500 mg/ Sodium (Chloride) 250 mls @ 250 mls/hr IV Q24H [facility] Last Admin: 10/14/20 23:16 Dose: 250 mls/hr Documented by: Morphine Sulfate (Morphine 2 Mg/Ml Syringe) 2 mg IVPUSH Q4H PRN PRN Reason: Pain (severe 7-10) Stop: 10/15/20 21:04 - Exam Quality Assessment: Supplemental Oxygen (1.5L ), DVT Prophylaxis. No: Urine Catheter General: Alert, Oriented, Cooperative, No Acute Distress HEENT: Pupils Equal, Pupils Reactive, Mucous Membr. Moist/[place] Neck: Supple, Trachea Midline Lungs: Normal Respiratory Effort, Decreased Breath Sounds. No: Rales, Wheezing Cardiovascular: Regular Rate, Regular Rhythm GI/Abdominal Exam: Normal Bowel Sounds, Soft, Non-Tender, No Distention, No A bnormal Bruit (Female) Exam: Deferred Back Exam: Normal Inspection, Full Range of Motion Extremities: Normal Inspection, Normal Range of Motion, Non-Tender, No Pedal Edema, Normal Capillary Refill Peripheral Pulses: 2+: Radial (L), Radial (R), Dorsalis Pedis (L), Dorsalis Pedis (R) Skin: Warm, Dry, Intact Neurological: No New Focal Deficit Psy/Mental Status: Alert, Normal Affect, Normal Mood - Patient Data Lab Results Last 24 hrs: Laboratory Results - last 24 hr 10/15/20 10/15/20 10/15/20 Range/Units 08:30 11:02 16:36 WBC (3.98-10.04) K/mm3 RBC (3.98-5.22) M/mm3 Hgb (11.2-15.7) gm/dl Hct (34.1-44.9) % MCV (79.4-94.8) fl MCH (25.6-32.2) pg MCHC (32.2-35.5) g/dl RDW Std Deviation (36.4-46.3) fL Plt Count (182-369) K/mm3 MPV (9.4-12.3) fl Neut % (Auto) (34.0-71.1) % Lymph % (Auto) (19.3-51.7) % [place] % (Auto) (4.7-12.5) % Eos % (Auto) (0.7-5.8) Baso % (Auto) (0.1-1.2) % Neut # (Auto) (1.56-6.13) K/mm3 Lymph # (Auto) (1.18-3.74) K/mm3 [place] # (Auto) (0.24-0.36) K/mm3 Eos # (Auto) (0.04-0.36) K/mm3 Baso # (Auto) (0.01-0.08) K/mm3 Manual Slide Review PT (9.7-12.0) SECONDS INR Sodium (136-145) mEq/L Potassium (3.5-5.1) mEq/L Chloride (98-107) mEq/L Carbon Dioxide (21-32) mEq/L Anion Gap (5-15) BUN (7-18) mg/dL Creatinine (0.55-1.02) mg/dL Est Cr Clr Drug Dosing mL/min Estimated GFR (MDRD) (>60) mL/min BUN/Creatinine Ratio (14-18) Glucose (70-99) mg/dL POC Glucose 154 H 135 H (70-99) mg/dL Calcium (8.5-10.1) mg/dL Total Bilirubin (0.2-1.0) mg/dL AST (15-37) U/L ALT (14-59) U/L Alkaline Phosphatase (46-116) U/L C-Reactive Protein (<1.0) mg/dL Total Protein (6.4-8.2) g/dl Albumin (3.4-5.0) g/dl Globulin gm/dL Albumin/Globulin Ratio (1-2) Urine Color Yellow (Yellow) Urine Appearance Clear (Clear) Urine pH 5.5 (5.0-8.0) Ur Specific [place] 1.025 (1.005-1.030) Urine Protein Trace H (Negative) Urine Glucose (UA) Negative (Negative) Urine Ketones Negative (Negative) Urine Occult Blood Negative (Negative) Urine Nitrite Negative (Negative) Urine Bilirubin Negative (Negative) Urine Urobilinogen 0.2 (0.2-1.0) Ur Leukocyte Esterase Negative (Negative) Urine RBC Not seen (0-5) /hpf Urine WBC Not seen (0-5) /hpf Ur Squamous Epith Cells 0-5 (0-5) /hpf Urine Bacteria Few (FEW) /hpf Urine Mucus Not seen (FEW) /hpf 10/15/20 10/16/20 10/16/20 Range/Units 21:27 04:52 04:52 WBC 9.63 (3.98-10.04) K/mm3 RBC 4.73 (3.98-5.22) M/mm3 Hgb 14.1 (11.2-15.7) gm/dl Hct 44.1 (34.1-44.9) % MCV 93.2 (79.4-94.8) fl MCH 29.8 (25.6-32.2) pg MCHC 32.0 L (32.2-35.5) g/dl RDW Std Deviation 46.6 H (36.4-46.3) fL Plt Count 231 (182-369) K/mm3 MPV 10.7 (9.4-12.3) fl Neut % (Auto) 82.7 H (34.0-71.1) % Lymph % (Auto) 9.4 L (19.3-51.7) % [place] % (Auto) 7.6 (4.7-12.5) % Eos % (Auto) 0 L (0.7-5.8) Baso % (Auto) 0.1 (0.1-1.2) % Neut # (Auto) 7.96 H (1.56-6.13) K/mm3 Lymph # (Auto) 0.91 L (1.18-3.74) K/mm3 [place] # (Auto) 0.73 H (0.24-0.36) K/mm3 Eos # (Auto) 0.00 L (0.04-0.36) K/mm3 Baso # (Auto) 0.01 (0.01-0.08) K/mm3 Manual Slide Review Abnormal smear PT (9.7-12.0) SECONDS INR Sodium 145 (136-145) mEq/L Potassium 4.4 (3.5-5.1) mEq/L Chloride 108 H (98-107) mEq/L Carbon Dioxide 27 (21-32) mEq/L Anion Gap 14.4 (5-15) BUN 20 H (7-18) mg/dL Creatinine 0.9 (0.55-1.02) mg/dL Est Cr Clr Drug Dosing 57.40 mL/min Estimated GFR (MDRD) > 60 (>60) mL/min BUN/Creatinine Ratio 22.2 H (14-18) Glucose 124 H (70-99) mg/dL POC Glucose 215 H (70-99) mg/dL Calcium 8.2 L (8.5-10.1) mg/dL Total Bilirubin 0.2 (0.2-1.0) mg/dL AST 33 (15-37) U/L ALT 40 (14-59) U/L Alkaline Phosphatase 57 (46-116) U/L C-Reactive Protein 4.8 H* (<1.0) mg/dL Total Protein 7.0 (6.4-8.2) g/dl Albumin 3.0 L (3.4-5.0) g/dl Globulin 4.0 gm/dL Albumin/Globulin Ratio 0.8 L (1-2) Urine Color (Yellow) Urine Appearance (Clear) Urine pH (5.0-8.0) Ur Specific [place] (1.005-1.030) Urine Protein (Negative) Urine Glucose (UA) (Negative) Urine Ketones (Negative) Urine Occult Blood (Negative) Urine Nitrite (Negative) Urine Bilirubin (Negative) Urine Urobilinogen (0.2-1.0) Ur Leukocyte Esterase (Negative) Urine RBC (0-5) /hpf Urine WBC (0-5) /hpf Ur Squamous Epith Cells (0-5) /hpf Urine Bacteria (FEW) /hpf Urine Mucus (FEW) /hpf 10/16/20 10/16/20 Range/Units 04:53 05:50 WBC (3.98-10.04) K/mm3 RBC (3.98-5.22) M/mm3 Hgb (11.2-15.7) gm/dl Hct (34.1-44.9) % MCV (79.4-94.8) fl MCH (25.6-32.2) pg MCHC (32.2-35.5) g/dl RDW Std Deviation (36.4-46.3) fL Plt Count (182-369) K/mm3 MPV (9.4-12.3) fl Neut % (Auto) (34.0-71.1) % Lymph % (Auto) (19.3-51.7) % [place] % (Auto) (4.7-12.5) % Eos % (Auto) (0.7-5.8) Baso % (Auto) (0.1-1.2) % Neut # (Auto) (1.56-6.13) K/mm3 Lymph # (Auto) (1.18-3.74) K/mm3 [place] # (Auto) (0.24-0.36) K/mm3 Eos # (Auto) (0.04-0.36) K/mm3 Baso # (Auto) (0.01-0.08) K/mm3 Manual Slide Review PT 23.5 H (9.7-12.0) SECONDS INR 2.23 Sodium (136-145) mEq/L Potassium (3.5-5.1) mEq/L Chloride (98-107) mEq/L Carbon Dioxide (21-32) mEq/L Anion Gap (5-15) BUN (7-18) mg/dL Creatinine (0.55-1.02) mg/dL Est Cr Clr Drug Dosing mL/min Estimated GFR (MDRD) (>60) mL/min BUN/Creatinine Ratio (14-18) Glucose (70-99) mg/dL POC Glucose 114 H (70-99) mg/dL Calcium (8.5-10.1) mg/dL Total Bilirubin (0.2-1.0) mg/dL AST (15-37) U/L ALT (14-59) U/L Alkaline Phosphatase (46-116) U/L C-Reactive Protein (<1.0) mg/dL Total Protein (6.4-8.2) g/dl Albumin (3.4-5.0) g/dl Globulin gm/dL Albumin/Globulin Ratio (1-2) Urine Color (Yellow) Urine Appearance (Clear) Urine pH (5.0-8.0) Ur Specific [place] (1.005-1.030) Urine Protein (Negative) Urine Glucose (UA) (Negative) Urine Ketones (Negative) Urine Occult Blood (Negative) Urine Nitrite (Negative) Urine Bilirubin (Negative) Urine Urobilinogen (0.2-1.0) Ur Leukocyte Esterase (Negative) Urine RBC (0-5) /hpf Urine WBC (0-5) /hpf Ur Squamous Epith Cells (0-5) /hpf Urine Bacteria (FEW) /hpf Urine Mucus (FEW) /hpf Result Diagrams: 10/16/20 04:52 10/16/20 04:52 [place] Results Last 24 hrs: Microbiology 10/15/20 20:15 Gram Stain - Final Sputum - Expectorated 10/14/20 20:40 Aerobic Blood Culture - Preliminary Blood - Venous - Lab Draw NO GROWTH AFTER 1 DAY Anaerobic Blood Culture - Preliminary NO GROWTH AFTER 1 DAY 10/14/20 20:35 Aerobic Blood Culture - Preliminary Blood - Venous NO GROWTH AFTER 1 DAY Anaerobic Blood Culture - Preliminary NO GROWTH AFTER 1 DAY Sepsis Event Note - Evaluation Sepsis Screening Result: No Definite Risk - Focused Exam Vital Signs: Vital Signs Temp Pulse Resp BP Pulse Ox 10/16/20 07:17 97.7 F 84 20 107/74 97 10/16/20 05:53 97.9 F 93 18 107/70 96 10/15/20 23:41 98.1 F 98 16 116/58 L 96 10/15/20 20:35 97.9 F 114 H 20 133/74 94 L - Problem List & Annotations (1) COVID-19 SNOMED Code(s): 057955829 Code(s): U07.1 - COVID-19 Status: Acute Priority: High Current Visit: Yes (2) Hypoxia SNOMED Code(s): 037048843 Code(s): R09.02 - HYPOXEMIA Status: Acute Priority: High Current Visit: Yes (3) Drug-induced hyperglycemia SNOMED Code(s): 924799933 Code(s): R73.9 - HYPERGLYCEMIA, UNSPECIFIED; T50.905A - ADVERSE EFFECT OF UNSP DRUG/MEDS/BIOL SUBST, INIT Status: Acute Priority: Medium Current Visit: Yes (4) Acute respiratory failure with hypoxia SNOMED Code(s): 42642106, 088511340 Code(s): J96.01 - ACUTE RESPIRATORY FAILURE WITH HYPOXIA Status: Acute Priority: High Current Visit: Yes (5) Transaminitis SNOMED Code(s): 824417837, 655319224 Code(s): R74.01 - ELEVATION OF LEVELS OF LIVER TRANSAMINASE LEVELS Status: Resolved Priority: Medium Current Visit: Yes (6) COPD (chronic obstructive pulmonary disease) SNOMED Code(s): 52369338 Code(s): J44.9 - CHRONIC OBSTRUCTIVE PULMONARY DISEASE, UNSPECIFIED Status: Chronic Priority: High Current Visit: Yes Qualifiers: COPD type: emphysema Emphysema type: unspecified Qualified Code(s): J43.9 - Emphysema, unspecified (7) History of pulmonary embolism SNOMED Code(s): 452839795 Code(s): Z86.711 - PERSONAL HISTORY OF PULMONARY EMBOLISM Status: Chronic Priority: Medium Current Visit: No (8) Chronic anticoagulation SNOMED Code(s): 275430429 Code(s): Z79.01 - RESIDENTIAL (CURRENT) USE OF ANTICOAGULANTS Status: Chronic Priority: Low Current Visit: No (9) HTN (hypertension) SNOMED Code(s): 50126032 Code(s): I10 - ESSENTIAL (PRIMARY) HYPERTENSION Status: Chronic Priority: Low Current Visit: No Qualifiers: Hypertension type: unspecified Qualified Code(s): I10 - Essential (primary) hypertension - Problem List Review Problem List Initiated/Reviewed/Updated: Yes - Plan Plan:: Patient is a 60-year-old female with a history of hypertension, 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 Covid positive in the ER Assessment: Acute hypoxic respiratory failure -Etiology could be pneumonia, emphysema -Not on home oxygen -Pulse ox -Oxygen therapy, high flow/as needed to keep oxygen saturation greater than 92% Pneumonia, Covid 19 or CAP -CXR -no acute change. But i feel patient has a clinical pneumonia -Covid 19 test positive in in the ER -Symptoms started 3 to 4 days ago -Ferritin 349, D-dimer <0.19 (chronic use of warfarin), CRP 5.8 on admission -MRSA screen negative Transaminitis, Resolved -Could be due to infection of COVID-19 -AST 38. 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 We will admitted to telemetry as an inpatient 2. RT to oxygen to keep saturations goal of 88-95% Remdesivir 200mg iv x 1 and then 100mg iv daily x 4. Ceftriaxone x5 days, azithromycin x3 days, dexamethasone 6 mg p.o. daily x 10 days and continue warfarin. Inhalers She does not have diabetes (hemoglobin A1c 5.9) but I will put her on insulin sliding scale since she is started on high-dose steroid Continue incentive spirometry and [place] Dietitian consult regarding nutritional needs PT/OT to eval and treat and increase activity Prone positioning CRP and liver functions daily Monitor electrolytes. 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 Repeat CMPs daily 4. Repeat INR daily in morning 5. DVT prophylaxis: Warfarin 6. CODE STATUS: Full Deposition: 4-5 days
[2020-10-16] MEDS: Acetaminophen 325 MG Tab PO PRN (08:32)
[2020-10-16] MEDS: Warfarin 5 MG Tab PO SCH (18:05)
[2020-10-16] MEDS: Albuterol 6.7 GM Inhaler INH PRN (20:02)
[2020-10-16] MEDS: REMDESIVIR 100 MG in Sodium Chloride 0.9% 100 ML IV SCH (20:42)
[2020-10-16] MEDS: cefTRIAXone 2 GM in Sodium Chloride 0.9% 100 ML IV SCH (21:56)
[2020-10-16] MEDS: Rosuvastatin 10 MG Tab PO SCH (21:57)
[2020-10-16] MEDS: Azithromycin 500 MG in Sodium Chloride 0.9% 250 ML IV SCH (22:28)
[2020-10-17] MEDS: Insulin Lispro 100 UNIT/ML 10 ML Vial SUBCUT SCH (06:16)
--- NOTE | 2020-10-17 08:19 | PCM.PN ---
- General Info Date of Service: 10/17/20 Admission Dx/Problem (Free Text): Admission Diagnosis/Problem Admission Diagnosis/Problem Hypoxia Subjective Update: In to see Judy. She is laying in bed. She reports increased cough and sputum, especially when using her Acapella. Otherwise she says she feels okay. She is on 2 L of oxygen. WBC is elevated at 10.66, which is likely due to steroid. INR remained stable on her home dose of warfarin at 2.60. Sodium is 145. Potassium 4.2. BUN is stable at 20. GFR is greater than 60. Glucose has been mildly elevated and patient has a normal A1c. Therefore we will discontinue her regular blood glucose checks and sliding scale insulin. We will follow daily labs. CRP is improved to 3.7. AST and ALT are mildly elevated at 59 and 51 respectively. Alkaline phosphatase is 53. Bilirubin is 0.3. We will continue to monitor liver enzymes as patient is receiving remdesivir. Sputum cultures returned normal donald. Blood cultures remain negative. We will continue treatment with azithromycin, Rocephin, and remdesivir. Patient will likely require at least 5 days of treatment, possibly more. Functional Status: Reports: Pain Controlled, Tolerating Diet, Ambulating, Urinating, Incentive Spirometry, Other (Acapella ). Denies: New Symptoms - Review of Systems General: Reports: Weakness. Denies: Fever, Fatigue, Malaise, Chills HEENT: Reports: No Symptoms. Denies: Headaches, Sore Throat Pulmonary: Reports: Shortness of Breath, Cough, Sputum. Denies: Pleuritic Chest Pain, Wheezing Cardiovascular: Reports: Dyspnea on Exertion. Denies: Chest Pain, Palpitations, Edema Gastrointestinal: Reports: No Symptoms. Denies: Abdominal Pain, Constipation, Diarrhea, Nausea, Vomiting Genitourinary: Reports: Incontinence (Chronic ). Denies: Pain Musculoskeletal: Reports: No Symptoms Skin: Reports: No Symptoms. Denies: Cyanosis Neurological: Reports: No Symptoms. Denies: Confusion, Dizziness, Headache, Numbness, Pre-Existing Deficit, Seizure, Syncope, Tingling, Difficulty Walking, Gait Disturbance Psychiatric: Reports: No Symptoms - Patient Data Vitals - Most Recent: Last Vital Signs Temp 98.2 F 10/17/20 06:05 Pulse 86 10/17/20 06:05 Resp 18 10/17/20 06:05 BP 105/63 10/17/20 06:05 Pulse Ox 93 L 10/17/20 08:06 Weight - Most Recent: 220 lb I&O - Last 24 Hours: Intake & Output 10/16/20 10/17/20 10/17/20 22:59 06:59 14:59 Intake Total 800 950 Output Total 500 600 Balance 300 350 Lab Results Last 24 Hours: Laboratory Results - last 24 hr 10/16/20 10/16/20 10/16/20 Range/Units 11:49 16:55 20:39 WBC (3.98-10.04) K/mm3 RBC (3.98-5.22) M/mm3 Hgb (11.2-15.7) gm/dl Hct (34.1-44.9) % MCV (79.4-94.8) fl MCH (25.6-32.2) pg MCHC (32.2-35.5) g/dl RDW Std Deviation (36.4-46.3) fL Plt Count (182-369) K/mm3 MPV (9.4-12.3) fl Neut % (Auto) (34.0-71.1) % Lymph % (Auto) (19.3-51.7) % [place] % (Auto) (4.7-12.5) % Eos % (Auto) (0.7-5.8) Baso % (Auto) (0.1-1.2) % Neut # (Auto) (1.56-6.13) K/mm3 Lymph # (Auto) (1.18-3.74) K/mm3 [place] # (Auto) (0.24-0.36) K/mm3 Eos # (Auto) (0.04-0.36) K/mm3 Baso # (Auto) (0.01-0.08) K/mm3 PT (9.7-12.0) SECONDS INR Sodium (136-145) mEq/L Potassium (3.5-5.1) mEq/L Chloride (98-107) mEq/L Carbon Dioxide (21-32) mEq/L Anion Gap (5-15) BUN (7-18) mg/dL Creatinine (0.55-1.02) mg/dL Est Cr Clr Drug Dosing mL/min Estimated GFR (MDRD) (>60) mL/min BUN/Creatinine Ratio (14-18) Glucose (70-99) mg/dL POC Glucose 126 H 113 H 193 H (70-99) mg/dL Calcium (8.5-10.1) mg/dL Total Bilirubin (0.2-1.0) mg/dL AST (15-37) U/L ALT (14-59) U/L Alkaline Phosphatase (46-116) U/L C-Reactive Protein (<1.0) mg/dL Total Protein (6.4-8.2) g/dl Albumin (3.4-5.0) g/dl Globulin gm/dL Albumin/Globulin Ratio (1-2) 10/17/20 10/17/20 10/17/20 Range/Units 05:16 05:16 05:16 WBC 10.66 H (3.98-10.04) K/mm3 RBC 4.53 (3.98-5.22) M/mm3 Hgb 13.5 (11.2-15.7) gm/dl Hct 42.9 (34.1-44.9) % MCV 94.7 (79.4-94.8) fl MCH 29.8 (25.6-32.2) pg MCHC 31.5 L (32.2-35.5) g/dl RDW Std Deviation 47.4 H (36.4-46.3) fL Plt Count 238 (182-369) K/mm3 MPV 10.7 (9.4-12.3) fl Neut % (Auto) 81.5 H (34.0-71.1) % Lymph % (Auto) 10.6 L (19.3-51.7) % [place] % (Auto) 7.6 (4.7-12.5) % Eos % (Auto) 0 L (0.7-5.8) Baso % (Auto) 0.1 (0.1-1.2) % Neut # (Auto) 8.69 H (1.56-6.13) K/mm3 Lymph # (Auto) 1.13 L (1.18-3.74) K/mm3 [place] # (Auto) 0.81 H (0.24-0.36) K/mm3 Eos # (Auto) 0.00 L (0.04-0.36) K/mm3 Baso # (Auto) 0.01 (0.01-0.08) K/mm3 PT 27.3 H (9.7-12.0) SECONDS INR 2.60 Sodium 145 (136-145) mEq/L Potassium 4.2 (3.5-5.1) mEq/L Chloride 108 H (98-107) mEq/L Carbon Dioxide 30 (21-32) mEq/L Anion Gap 11.2 (5-15) BUN 20 H (7-18) mg/dL Creatinine 0.8 (0.55-1.02) mg/dL Est Cr Clr Drug Dosing 64.58 mL/min Estimated GFR (MDRD) > 60 (>60) mL/min BUN/Creatinine Ratio 25.0 H (14-18) Glucose 105 H (70-99) mg/dL POC Glucose (70-99) mg/dL Calcium 7.6 L (8.5-10.1) mg/dL Total Bilirubin 0.3 (0.2-1.0) mg/dL AST 59 H (15-37) U/L ALT 91 H (14-59) U/L Alkaline Phosphatase 53 (46-116) U/L C-Reactive Protein 3.7 H* (<1.0) mg/dL Total Protein 6.4 (6.4-8.2) g/dl Albumin 2.8 L (3.4-5.0) g/dl Globulin 3.6 gm/dL Albumin/Globulin Ratio 0.8 L (1-2) 10/17/20 Range/Units 06:02 WBC (3.98-10.04) K/mm3 RBC (3.98-5.22) M/mm3 Hgb (11.2-15.7) gm/dl Hct (34.1-44.9) % MCV (79.4-94.8) fl MCH (25.6-32.2) pg MCHC (32.2-35.5) g/dl RDW Std Deviation (36.4-46.3) fL Plt Count (182-369) K/mm3 MPV (9.4-12.3) fl Neut % (Auto) (34.0-71.1) % Lymph % (Auto) (19.3-51.7) % [place] % (Auto) (4.7-12.5) % Eos % (Auto) (0.7-5.8) Baso % (Auto) (0.1-1.2) % Neut # (Auto) (1.56-6.13) K/mm3 Lymph # (Auto) (1.18-3.74) K/mm3 [place] # (Auto) (0.24-0.36) K/mm3 Eos # (Auto) (0.04-0.36) K/mm3 Baso # (Auto) (0.01-0.08) K/mm3 PT (9.7-12.0) SECONDS INR Sodium (136-145) mEq/L Potassium (3.5-5.1) mEq/L Chloride (98-107) mEq/L Carbon Dioxide (21-32) mEq/L Anion Gap (5-15) BUN (7-18) mg/dL Creatinine (0.55-1.02) mg/dL Est Cr Clr Drug Dosing mL/min Estimated GFR (MDRD) (>60) mL/min BUN/Creatinine Ratio (14-18) Glucose (70-99) mg/dL POC Glucose 108 H (70-99) mg/dL Calcium (8.5-10.1) mg/dL Total Bilirubin (0.2-1.0) mg/dL AST (15-37) U/L ALT (14-59) U/L Alkaline Phosphatase (46-116) U/L C-Reactive Protein (<1.0) mg/dL Total Protein (6.4-8.2) g/dl Albumin (3.4-5.0) g/dl Globulin gm/dL Albumin/Globulin Ratio (1-2) Tate Results Last 24 Hours: Microbiology 10/15/20 20:15 Gram Stain - Final Sputum - Expectorated 10/14/20 20:40 Aerobic Blood Culture - Preliminary Blood - Venous - Lab Draw NO GROWTH AFTER 2 DAYS Anaerobic Blood Culture - Preliminary NO GROWTH AFTER 2 DAYS 10/14/20 20:35 Aerobic Blood Culture - Preliminary Blood - Venous NO GROWTH AFTER 2 DAYS Anaerobic Blood Culture - Preliminary NO GROWTH AFTER 2 DAYS Med Orders - Current: Current Medications Acetaminophen (Acetaminophen 325 Mg Tab) 650 mg PO Q4H PRN PRN Reason: Pain (mild 1-3) Last Admin: 10/16/20 08:32 Dose: 650 mg Documented by: Albuterol (Albuterol 6.7 Gm Inhaler) 0 gm INH Q4H PRN PRN Reason: Shortness of Breath Last Admin: 10/16/20 20:02 Dose: 2 inhaler Documented by: Cholecalciferol (Cholecalciferol (Vitamin D3) 5,000 Unit Cap) 5,000 unit PO DAILY [facility] Last Admin: 10/16/20 08:04 Dose: 5,000 unit Documented by: Dexamethasone (Dexamethasone 4 Mg Tab) 6 mg PO DAILY [facility] Stop: 10/23/20 09:01 Last Admin: 10/16/20 08:05 Dose: 6 mg Documented by: Duloxetine HCl (Duloxetine 30 Mg Cap) 60 mg PO DAILY [facility] Last Admin: 10/16/20 08:05 Dose: 60 mg Documented by: Hydralazine HCl (Hydralazine 20 Mg/Ml Sdv) 10 mg IVPUSH Q4H PRN PRN Reason: Hypertension Promethazine HCl 12.5 mg/ (Sodium Chloride) 50.5 mls @ 100 mls/hr IV Q6H PRN PRN Reason: Nausea/Vomiting Remdesivir 100 mg/ Sodium (Chloride) 100 mls @ 100 mls/hr IV Q24H [facility] Stop: 10/18/20 20:59 Last Admin: 10/16/20 20:42 Dose: 100 mls/hr Documented by: Azithromycin 500 mg/ Sodium (Chloride) 250 mls @ 250 mls/hr IV Q24H [facility] Stop: 10/17/20 22:29 Last Admin: 10/16/20 22:28 Dose: 250 mls/hr Documented by: Ceftriaxone Sodium 2 gm/ (Sodium Chloride) 100 mls @ 200 mls/hr IV Q24H [facility] Stop: 10/19/20 21:29 Last Admin: 10/16/20 21:56 Dose: 200 mls/hr Documented by: Melatonin (Melatonin 3 Mg Tab) 3 mg PO BEDTIME PRN PRN Reason: Insomnia Rosuvastatin Calcium (Rosuvastatin 10 Mg Tab) 10 mg PO BEDTIME [facility] Last Admin: 10/16/20 21:57 Dose: 10 mg Documented by: Warfarin Sodium (Warfarin 2.5 Mg Tab) 2.5 mg PO Tu@1800 [facility] Warfarin Sodium (Warfarin 5 Mg Tab) 5 mg PO SuMoWeThFrSa@1800 [facility] Last Admin: 10/16/20 18:05 Dose: 5 mg Documented by: Zinc Sulfate (Zinc Sulfate 220 Mg Cap) 220 mg PO DAILY [facility] Last Admin: 10/16/20 08:05 Dose: 220 mg Documented by: Discontinued Medications Acetaminophen (Acetaminophen 325 Mg Tab) 650 mg PO NOW ONE Stop: 10/14/20 18:10 Last Admin: 10/14/20 18:40 Dose: 650 mg Documented by: Acetaminophen (Acetaminophen 325 Mg Tab) Confirm Administered Dose 650 mg .ROUTE .STK-MED ONE Stop: 10/14/20 18:38 Last Admin: 10/14/20 18:41 Dose: Not Given Documented by: Acetaminophen (Acetaminophen 650 Mg Supp) 650 mg RECTAL Q6H PRN PRN Reason: Pain (mild 1-3) Remdesivir 200 mg/ Sodium (Chloride) 250 mls @ 250 mls/hr IV ONETIME ONE Stop: 10/14/20 21:31 Last Admin: 10/14/20 20:54 Dose: 250 mls/hr Documented by: Ceftriaxone Sodium 2 gm/ (Sodium Chloride) 100 mls @ 200 mls/hr IV Q24H [facility] Last Admin: 10/14/20 22:05 Dose: 200 mls/hr Documented by: Azithromycin 500 mg/ Sodium (Chloride) 250 mls @ 250 mls/hr IV Q24H [facility] Last Admin: 10/14/20 23:16 Dose: 250 mls/hr Documented by: Insulin Human Lispro (Insulin Lispro 100 Unit/Ml 10 Ml Vial) 0 unit SUBCUT QIDACANDBED [facility]; Protocol Last Admin: 10/17/20 06:16 Dose: Not Given Documented by: Morphine Sulfate (Morphine 2 Mg/Ml Syringe) 2 mg IVPUSH Q4H PRN PRN Reason: Pain (severe 7-10) Stop: 10/15/20 21:04 - Exam Quality Assessment: Supplemental Oxygen (2L), DVT Prophylaxis. No: Urine Catheter General: Alert, Oriented, Cooperative, No Acute Distress HEENT: Pupils Equal, Pupils Reactive, Mucous Membr. Moist/[place]: Supple, Trachea Midline Lungs: Normal Respiratory Effort, Decreased Breath Sounds Cardiovascular: Regular Rate, Regular Rhythm GI/Abdominal Exam: Normal Bowel Sounds, Soft, Non-Tender, No Distention (Female) Exam: Deferred Back Exam: Normal Inspection, Full Range of Motion Extremities: Normal Inspection, Normal Range of Motion, Non-Tender, No Pedal Edema, Normal Capillary Refill Peripheral Pulses: 2+: Radial (L), Radial (R), Dorsalis Pedis (L), Dorsalis Pedis (R) Skin: Warm, Dry, Intact Neurological: No New Focal Deficit Psy/Mental Status: Alert, Normal Affect, Normal Mood - Patient Data Lab Results Last 24 hrs: Laboratory Results - last 24 hr 10/16/20 10/16/20 10/16/20 Range/Units 11:49 16:55 20:39 WBC (3.98-10.04) K/mm3 RBC (3.98-5.22) M/mm3 Hgb (11.2-15.7) gm/dl Hct (34.1-44.9) % MCV (79.4-94.8) fl MCH (25.6-32.2) pg MCHC (32.2-35.5) g/dl RDW Std Deviation (36.4-46.3) fL Plt Count (182-369) K/mm3 MPV (9.4-12.3) fl Neut % (Auto) (34.0-71.1) % Lymph % (Auto) (19.3-51.7) % [place] % (Auto) (4.7-12.5) % Eos % (Auto) (0.7-5.8) Baso % (Auto) (0.1-1.2) % Neut # (Auto) (1.56-6.13) K/mm3 Lymph # (Auto) (1.18-3.74) K/mm3 [place] # (Auto) (0.24-0.36) K/mm3 Eos # (Auto) (0.04-0.36) K/mm3 Baso # (Auto) (0.01-0.08) K/mm3 PT (9.7-12.0) SECONDS INR Sodium (136-145) mEq/L Potassium (3.5-5.1) mEq/L Chloride (98-107) mEq/L Carbon Dioxide (21-32) mEq/L Anion Gap (5-15) BUN (7-18) mg/dL Creatinine (0.55-1.02) mg/dL Est Cr Clr Drug Dosing mL/min Estimated GFR (MDRD) (>60) mL/min BUN/Creatinine Ratio (14-18) Glucose (70-99) mg/dL POC Glucose 126 H 113 H 193 H (70-99) mg/dL Calcium (8.5-10.1) mg/dL Total Bilirubin (0.2-1.0) mg/dL AST (15-37) U/L ALT (14-59) U/L Alkaline Phosphatase (46-116) U/L C-Reactive Protein (<1.0) mg/dL Total Protein (6.4-8.2) g/dl Albumin (3.4-5.0) g/dl Globulin gm/dL Albumin/Globulin Ratio (1-2) 10/17/20 10/17/20 10/17/20 Range/Units 05:16 05:16 05:16 WBC 10.66 H (3.98-10.04) K/mm3 RBC 4.53 (3.98-5.22) M/mm3 Hgb 13.5 (11.2-15.7) gm/dl Hct 42.9 (34.1-44.9) % MCV 94.7 (79.4-94.8) fl MCH 29.8 (25.6-32.2) pg MCHC 31.5 L (32.2-35.5) g/dl RDW Std Deviation 47.4 H (36.4-46.3) fL Plt Count 238 (182-369) K/mm3 MPV 10.7 (9.4-12.3) fl Neut % (Auto) 81.5 H (34.0-71.1) % Lymph % (Auto) 10.6 L (19.3-51.7) % [place] % (Auto) 7.6 (4.7-12.5) % Eos % (Auto) 0 L (0.7-5.8) Baso % (Auto) 0.1 (0.1-1.2) % Neut # (Auto) 8.69 H (1.56-6.13) K/mm3 Lymph # (Auto) 1.13 L (1.18-3.74) K/mm3 [place] # (Auto) 0.81 H (0.24-0.36) K/mm3 Eos # (Auto) 0.00 L (0.04-0.36) K/mm3 Baso # (Auto) 0.01 (0.01-0.08) K/mm3 PT 27.3 H (9.7-12.0) SECONDS INR 2.60 Sodium 145 (136-145) mEq/L Potassium 4.2 (3.5-5.1) mEq/L Chloride 108 H (98-107) mEq/L Carbon Dioxide 30 (21-32) mEq/L Anion Gap 11.2 (5-15) BUN 20 H (7-18) mg/dL Creatinine 0.8 (0.55-1.02) mg/dL Est Cr Clr Drug Dosing 64.58 mL/min Estimated GFR (MDRD) > 60 (>60) mL/min BUN/Creatinine Ratio 25.0 H (14-18) Glucose 105 H (70-99) mg/dL POC Glucose (70-99) mg/dL Calcium 7.6 L (8.5-10.1) mg/dL Total Bilirubin 0.3 (0.2-1.0) mg/dL AST 59 H (15-37) U/L ALT 91 H (14-59) U/L Alkaline Phosphatase 53 (46-116) U/L C-Reactive Protein 3.7 H* (<1.0) mg/dL Total Protein 6.4 (6.4-8.2) g/dl Albumin 2.8 L (3.4-5.0) g/dl Globulin 3.6 gm/dL Albumin/Globulin Ratio 0.8 L (1-2) 16/ Range/Units 06:02 WBC (3.98-10.04) K/mm3 RBC (3.98-5.22) M/mm3 Hgb (11.2-15.7) gm/dl Hct (34.1-44.9) % MCV (79.4-94.8) fl MCH (25.6-32.2) pg MCHC (32.2-35.5) g/dl RDW Std Deviation (36.4-46.3) fL Plt Count (182-369) K/mm3 MPV (9.4-12.3) fl Neut % (Auto) (34.0-71.1) % Lymph % (Auto) (19.3-51.7) % [place] % (Auto) (4.7-12.5) % Eos % (Auto) (0.7-5.8) Baso % (Auto) (0.1-1.2) % Neut # (Auto) (1.56-6.13) K/mm3 Lymph # (Auto) (1.18-3.74) K/mm3 [place] # (Auto) (0.24-0.36) K/mm3 Eos # (Auto) (0.04-0.36) K/mm3 Baso # (Auto) (0.01-0.08) K/mm3 PT (9.7-12.0) SECONDS INR Sodium (136-145) mEq/L Potassium (3.5-5.1) mEq/L Chloride (98-107) mEq/L Carbon Dioxide (21-32) mEq/L Anion Gap (5-15) BUN (7-18) mg/dL Creatinine (0.55-1.02) mg/dL Est Cr Clr Drug Dosing mL/min Estimated GFR (MDRD) (>60) mL/min BUN/Creatinine Ratio (14-18) Glucose (70-99) mg/dL POC Glucose 108 H (70-99) mg/dL Calcium (8.5-10.1) mg/dL Total Bilirubin (0.2-1.0) mg/dL AST (15-37) U/L ALT (14-59) U/L Alkaline Phosphatase (46-116) U/L C-Reactive Protein (<1.0) mg/dL Total Protein (6.4-8.2) g/dl Albumin (3.4-5.0) g/dl Globulin gm/dL Albumin/Globulin Ratio (1-2) Result Diagrams: 10/17/20 05:16 10/17/20 05:16 Tate Results Last 24 hrs: Microbiology 10/15/20 20:15 Gram Stain - Final Sputum - Expectorated 10/14/20 20:40 Aerobic Blood Culture - Preliminary Blood - Venous - Lab Draw NO GROWTH AFTER 2 DAYS Anaerobic Blood Culture - Preliminary NO GROWTH AFTER 2 DAYS 10/14/20 20:35 Aerobic Blood Culture - Preliminary Blood - Venous NO GROWTH AFTER 2 DAYS Anaerobic Blood Culture - Preliminary NO GROWTH AFTER 2 DAYS Sepsis Event Note - Evaluation Sepsis Screening Result: No Definite Risk - Focused Exam Vital Signs: Vital Signs Temp Pulse Resp BP Pulse Ox Pulse Ox 10/17/20 08:06 93 L 10/17/20 06:05 98.2 F 86 18 105/63 95 10/16/20 22:02 98.1 F 88 18 112/70 95 10/16/20 21:00 95 - Problem List & Annotations (1) COVID-19 SNOMED Code(s): 016793346 Code(s): U07.1 - COVID-19 Status: Acute Priority: High Current Visit: Yes (2) Hypoxia SNOMED Code(s): 783706326 Code(s): R09.02 - HYPOXEMIA Status: Acute Priority: High Current Visit: Yes (3) Drug-induced hyperglycemia SNOMED Code(s): 154639803 Code(s): R73.9 - HYPERGLYCEMIA, UNSPECIFIED; T50.905A - ADVERSE EFFECT OF UNSP DRUG/MEDS/BIOL SUBST, INIT Status: Acute Priority: Medium Current Visit: Yes (4) Acute respiratory failure with hypoxia SNOMED Code(s): 02933194, 268744739 Code(s): J96.01 - ACUTE RESPIRATORY FAILURE WITH HYPOXIA Status: Acute Priority: High Current Visit: Yes (5) Transaminitis SNOMED Code(s): 679508740, 725588092 Code(s): R74.01 - ELEVATION OF LEVELS OF LIVER TRANSAMINASE LEVELS Status: Acute Priority: Medium Current Visit: Yes (6) COPD (chronic obstructive pulmonary disease) SNOMED Code(s): 27966103 Code(s): J44.9 - CHRONIC OBSTRUCTIVE PULMONARY DISEASE, UNSPECIFIED Status: Chronic Priority: High Current Visit: Yes Qualifiers: COPD type: emphysema Emphysema type: unspecified Qualified Code(s): J43.9 - Emphysema, unspecified (7) History of pulmonary embolism SNOMED Code(s): 529482860 Code(s): Z86.711 - PERSONAL HISTORY OF PULMONARY EMBOLISM Status: Chronic Priority: Medium Current Visit: No (8) Chronic anticoagulation SNOMED Code(s): 892854062 Code(s): Z79.01 - SHELTER (CURRENT) USE OF ANTICOAGULANTS Status: Chronic Priority: Low Current Visit: No (9) HTN (hypertension) SNOMED Code(s): 59871786 Code(s): I10 - ESSENTIAL (PRIMARY) HYPERTENSION Status: Chronic Priority: Low Current Visit: No Qualifiers: Hypertension type: unspecified Qualified Code(s): I10 - Essential (primary) hypertension (10) Prediabetes SNOMED Code(s): 476238175 Code(s): R73.03 - PREDIABETES Status: Acute Priority: High Current Visit: Yes (11) Hypocalcemia SNOMED Code(s): 3439680 Code(s): E83.51 - HYPOCALCEMIA Status: Acute Priority: High Current Visit: Yes (12) Obesity (BMI 30-39.9) SNOMED Code(s): 746279453, 609005949 Code(s): E66.9 - OBESITY, UNSPECIFIED Status: Chronic Priority: Medium Current Visit: Yes - Problem List Review Problem List Initiated/Reviewed/Updated: Yes - My Orders Last 24 Hours: My Active Orders 10/16/20 10:52 Positioning, Patient [RC] ASDIRECTED - Plan Plan:: Patient is a 60-year-old female with a history of hypertension, 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 Covid positive in the ER Assessment: Acute hypoxic respiratory failure -Etiology could be pneumonia, emphysema -Not on home oxygen -Pulse ox -Oxygen therapy, high flow/as needed to keep oxygen saturation greater than 88- 95% -Requiring 2L O2 currently Pneumonia, Covid 19 or CAP -CXR -no acute change. But it is felt patient has a clinical pneumonia -Covid 19 test positive in in the ER -Symptoms started 3 to 4 days ago -Ferritin 349, D-dimer <0.19 (chronic use of warfarin), CRP 5.8 on admission -MRSA screen negative Transaminitis, stable -Could be due to infection of COVID-19 -AST 38. Tbil 0.4 and Al phos 59 on admission -Total bilirubin 0.3, AST 59, ALT 91, alkaline phosphatase 53 today. -Monitor closely as patient is on remdesivir Hx of COPD -As per patient, she has emphysema -Former smoker, quit smoking 6 years ago HTN -Home medication does not include blood pressure medication -Hydralazine as needed -BPs have been good thus far Hx of PE and DVT, stable -On warfarin at home -Therapeutic INR 2.47 on admission -Monitor INRs -D-Dimer <0.19 Hypocalcemia -Calcium trending down since admission -8.2 on admission, 7.6 today Pre-diabetes Obesity -BMI of 37.8 -A1C 5.9 Plan: 1. We will admitted to telemetry as an inpatient 2. RT to oxygen to keep saturations goal of 88-95% Remdesivir 200mg iv x 1 and then 100mg iv daily x 4. Ceftriaxone x5 days, azithromycin x3 days, dexamethasone 6 mg p.o. daily x 10 days and continue warfarin. Inhalers Continue incentive spirometry and Acapella PRN albuterol inhaler PT/OT to eval and treat and increase activity Prone positioning CRP and liver functions daily Monitor electrolytes. replace and repeat it if necessary security services specialist for discharge planning Monitor blood sugars daily due to steroid Zinc and vitamin D supplementation 3. Start BIDAC 1gm calcium carbonate supplementation 4. ADA diet and art museum docent consultation 5. Repeat CMPs daily 6. Repeat INR daily in morning 7. DVT prophylaxis: Warfarin 8. CODE STATUS: Full Deposition: 4-5 days total
[2020-10-17] MEDS: DULoxetine 30 MG Cap PO SCH (08:44)
[2020-10-17] MEDS: Zinc Sulfate 220 MG Cap PO SCH (08:44)
[2020-10-17] MEDS: Cholecalciferol (Vitamin D3) 5,000 UNIT Cap PO SCH (08:44)
[2020-10-17] MEDS: Dexamethasone 4 MG Tab PO SCH (08:44)
[2020-10-17] MEDS: Calcium Carbonate 500 MG Tab.Chew PO SCH ×3 (13:54→16:54)
[2020-10-17] MEDS: Acetaminophen 325 MG Tab PO PRN (15:56)
[2020-10-17] MEDS: Warfarin 5 MG Tab PO SCH (17:00)
[2020-10-17] MEDS: Albuterol 6.7 GM Inhaler INH PRN (20:13)
[2020-10-17] MEDS: cefTRIAXone 2 GM in Sodium Chloride 0.9% 100 ML IV SCH (20:50)
[2020-10-17] MEDS: REMDESIVIR 100 MG in Sodium Chloride 0.9% 100 ML IV SCH (20:50)
[2020-10-17] MEDS: Azithromycin 500 MG in Sodium Chloride 0.9% 250 ML IV SCH (20:50)
[2020-10-17] MEDS: Rosuvastatin 10 MG Tab PO SCH (20:51)
[2020-10-18] MEDS: Calcium Carbonate 500 MG Tab.Chew PO SCH ×2 (05:36→16:56)
[2020-10-18] MEDS: Albuterol 6.7 GM Inhaler INH PRN ×3 (08:24→20:16)
[2020-10-18] MEDS: Zinc Sulfate 220 MG Cap PO SCH (08:53)
[2020-10-18] MEDS: Dexamethasone 4 MG Tab PO SCH (08:54)
[2020-10-18] MEDS: DULoxetine 30 MG Cap PO SCH (08:54)
[2020-10-18] MEDS: Cholecalciferol (Vitamin D3) 5,000 UNIT Cap PO SCH (08:54)
--- NOTE | 2020-10-18 11:53 | PCM.PN ---
- General Info Date of Service: 10/18/20 Admission Dx/Problem (Free Text): Admission Diagnosis/Problem Admission Diagnosis/Problem Hypoxia Subjective Update: Judy states she is feeling much better today. She still has some shortness of breath noted with ambulation. She has been up and ambulating in the room quite frequently. She states that her appetite has still been fairly poor however she is eating and drinking plenty of fluids. She is down to 1-1/2 L of oxygen per nasal cannula. Has been coughing at times it is productive. Scant amount of blood noted in her sputum today. Functional Status: Reports: Pain Controlled, Tolerating Diet, Ambulating, Urinating, Incentive Spirometry - Review of Systems General: Denies: Appetite (Fair) HEENT: Reports: No Symptoms Pulmonary: Reports: Shortness of Breath (With ambulation), Cough, Sputum (Occ asional scant amount of blood noted in sputum this morning) Cardiovascular: Reports: Dyspnea on Exertion. Denies: Chest Pain, Palpitations, Orthopnea, Edema Gastrointestinal: Reports: Decreased Appetite. Denies: Abdominal Pain, Diarrhea, Nausea, Vomiting Genitourinary: Reports: No Symptoms Musculoskeletal: Reports: No Symptoms Skin: Reports: No Symptoms Neurological: Reports: No Symptoms Psychiatric: Reports: No Symptoms - Patient Data Vitals - Most Recent: Last Vital Signs Temp 97.5 F 10/18/20 07:23 Pulse 75 10/18/20 07:23 Resp 20 10/18/20 07:23 BP 116/74 10/18/20 07:23 Pulse Ox 90 L 10/18/20 08:25 Weight - Most Recent: 219 lb 12.8 oz I&O - Last 24 Hours: Intake & Output 10/17/20 10/18/20 10/18/20 22:59 06:59 14:59 Intake Total 1800 1050 120 Output Total 1250 Balance 1800 -200 120 Lab Results Last 24 Hours: Laboratory Results - last 24 hr 10/18/20 10/18/20 10/18/20 Range/Units 06:45 06:45 06:45 WBC 9.85 (3.98-10.04) K/mm3 RBC 4.53 (3.98-5.22) M/mm3 Hgb 13.5 (11.2-15.7) gm/dl Hct 42.5 (34.1-44.9) % MCV 93.8 (79.4-94.8) fl MCH 29.8 (25.6-32.2) pg MCHC 31.8 L (32.2-35.5) g/dl RDW Std Deviation 46.1 (36.4-46.3) fL Plt Count 256 (182-369) K/mm3 MPV 10.4 (9.4-12.3) fl Neut % (Auto) 78.8 H (34.0-71.1) % Lymph % (Auto) 13.0 L (19.3-51.7) % [place] % (Auto) 7.8 (4.7-12.5) % Eos % (Auto) 0 L (0.7-5.8) Baso % (Auto) 0.1 (0.1-1.2) % Neut # (Auto) 7.76 H (1.56-6.13) K/mm3 Lymph # (Auto) 1.28 (1.18-3.74) K/mm3 [place] # (Auto) 0.77 H (0.24-0.36) K/mm3 Eos # (Auto) 0.00 L (0.04-0.36) K/mm3 Baso # (Auto) 0.01 (0.01-0.08) K/mm3 PT 33.4 H (9.7-12.0) SECONDS INR 3.19 Sodium 146 H (136-145) mEq/L Potassium 4.1 (3.5-5.1) mEq/L Chloride 108 H (98-107) mEq/L Carbon Dioxide 30 (21-32) mEq/L Anion Gap 12.1 (5-15) BUN 20 H (7-18) mg/dL Creatinine 0.8 (0.55-1.02) mg/dL Est Cr Clr Drug Dosing 64.58 mL/min Estimated GFR (MDRD) > 60 (>60) mL/min BUN/Creatinine Ratio 25.0 H (14-18) Glucose 103 H (70-99) mg/dL Calcium 8.2 L (8.5-10.1) mg/dL Total Bilirubin 0.3 (0.2-1.0) mg/dL AST 40 H (15-37) U/L ALT 84 H (14-59) U/L Alkaline Phosphatase 54 (46-116) U/L C-Reactive Protein 4.3 H* (<1.0) mg/dL Total Protein 6.5 (6.4-8.2) g/dl Albumin 2.8 L (3.4-5.0) g/dl Globulin 3.7 gm/dL Albumin/Globulin Ratio 0.8 L (1-2) Tate Results Last 24 Hours: Microbiology 10/14/20 20:40 Aerobic Blood Culture - Preliminary Blood - Venous - Lab Draw NO GROWTH AFTER 3 DAYS Anaerobic Blood Culture - Preliminary NO GROWTH AFTER 3 DAYS 10/14/20 20:35 Aerobic Blood Culture - Preliminary Blood - Venous NO GROWTH AFTER 3 DAYS Anaerobic Blood Culture - Preliminary NO GROWTH AFTER 3 DAYS 10/15/20 20:15 Gram Stain - Final Sputum - Expectorated Sputum Culture - Final REDUCED NORMAL RESPIRATORY TIGRE Med Orders - Current: Current Medications Acetaminophen (Acetaminophen 325 Mg Tab) 650 mg PO Q4H PRN PRN Reason: Pain (mild 1-3) Last Admin: 10/17/20 15:56 Dose: 650 mg Documented by: Albuterol (Albuterol 6.7 Gm Inhaler) 0 gm INH Q4H PRN PRN Reason: Shortness of Breath Last Admin: 10/18/20 08:24 Dose: 2 inhaler Documented by: Calcium Carbonate/Glycine (Calcium Carbonate 500 Mg Tab.Chew) 1,000 mg PO BIDAC [facility] Last Admin: 10/18/20 05:36 Dose: 1,000 mg Documented by: Cholecalciferol (Cholecalciferol (Vitamin D3) 5,000 Unit Cap) 5,000 unit PO DAILY [facility] Last Admin: 10/18/20 08:54 Dose: 5,000 unit Documented by: Dexamethasone (Dexamethasone 4 Mg Tab) 6 mg PO DAILY [facility] Stop: 10/23/20 09:01 Last Admin: 10/18/20 08:54 Dose: 6 mg Documented by: Duloxetine HCl (Duloxetine 30 Mg Cap) 60 mg PO DAILY [facility] Last Admin: 10/18/20 08:54 Dose: 60 mg Documented by: Hydralazine HCl (Hydralazine 20 Mg/Ml Sdv) 10 mg IVPUSH Q4H PRN PRN Reason: Hypertension Promethazine HCl 12.5 mg/ (Sodium Chloride) 50.5 mls @ 100 mls/hr IV Q6H PRN PRN Reason: Nausea/Vomiting Remdesivir 100 mg/ Sodium (Chloride) 100 mls @ 100 mls/hr IV Q24H [facility] Stop: 10/18/20 20:59 Last Admin: 10/17/20 20:50 Dose: 100 mls/hr Documented by: Ceftriaxone Sodium 2 gm/ (Sodium Chloride) 100 mls @ 200 mls/hr IV Q24H [facility] Stop: 10/19/20 21:29 Last Admin: 10/17/20 20:50 Dose: 200 mls/hr Documented by: Melatonin (Melatonin 3 Mg Tab) 3 mg PO BEDTIME PRN PRN Reason: Insomnia Rosuvastatin Calcium (Rosuvastatin 10 Mg Tab) 10 mg PO BEDTIME [facility] Last Admin: 10/17/20 20:51 Dose: 10 mg Documented by: Warfarin Sodium (Warfarin 2.5 Mg Tab) 2.5 mg PO Tu@1800 [facility] Warfarin Sodium (Warfarin 5 Mg Tab) 5 mg PO SuMoWeThFrSa@1800 [facility] Last Admin: 10/17/20 17:00 Dose: 5 mg Documented by: Zinc Sulfate (Zinc Sulfate 220 Mg Cap) 220 mg PO DAILY [facility] Last Admin: 10/18/20 08:53 Dose: 220 mg Documented by: Discontinued Medications Acetaminophen (Acetaminophen 325 Mg Tab) 650 mg PO NOW ONE Stop: 10/14/20 18:10 Last Admin: 10/14/20 18:40 Dose: 650 mg Documented by: Acetaminophen (Acetaminophen 325 Mg Tab) Confirm Administered Dose 650 mg .ROUTE .STK-MED ONE Stop: 10/14/20 18:38 Last Admin: 10/14/20 18:41 Dose: Not Given Documented by: Acetaminophen (Acetaminophen 650 Mg Supp) 650 mg RECTAL Q6H PRN PRN Reason: Pain (mild 1-3) Remdesivir 200 mg/ Sodium (Chloride) 250 mls @ 250 mls/hr IV ONETIME ONE Stop: 10/14/20 21:31 Last Admin: 10/14/20 20:54 Dose: 250 mls/hr Documented by: Ceftriaxone Sodium 2 gm/ (Sodium Chloride) 100 mls @ 200 mls/hr IV Q24H [facility] Last Admin: 10/14/20 22:05 Dose: 200 mls/hr Documented by: Azithromycin 500 mg/ Sodium (Chloride) 250 mls @ 250 mls/hr IV Q24H [facility] Last Admin: 10/14/20 23:16 Dose: 250 mls/hr Documented by: Azithromycin 500 mg/ Sodium (Chloride) 250 mls @ 250 mls/hr IV Q24H [facility] Stop: 10/17/20 22:29 Last Admin: 10/17/20 20:50 Dose: 250 mls/hr Documented by: Insulin Human Lispro (Insulin Lispro 100 Unit/Ml 10 Ml Vial) 0 unit SUBCUT QIDACANDBED [facility]; Protocol Last Admin: 10/17/20 06:16 Dose: Not Given Documented by: Morphine Sulfate (Morphine 2 Mg/Ml Syringe) 2 mg IVPUSH Q4H PRN PRN Reason: Pain (severe 7-10) Stop: 10/15/20 21:04 - Exam Quality Assessment: Supplemental Oxygen (1-1/2 L per nasal cannula), DVT Prophylaxis (Patient is on Coumadin) General: Alert, Oriented, Cooperative HEENT: Pupils Equal, Mucous Membr. Moist/[place] Neck: Supple, Trachea Midline Lungs: Clear to Auscultation, Normal Respiratory Effort Cardiovascular: Regular Rate, Regular Rhythm, No Murmurs GI/Abdominal Exam: Normal Bowel Sounds, Soft, Non-Tender, No Distention (Female) Exam: Deferred Back Exam: Normal Inspection Extremities: Normal Inspection, No Pedal Edema Peripheral Pulses: 2+: Radial (L), Radial (R) Skin: Warm, Dry, Intact Neurological: No New Focal Deficit Psy/Mental Status: Alert, Normal Affect, Normal Mood - Patient Data Lab Results Last 24 hrs: Laboratory Results - last 24 hr 10/18/20 10/18/20 10/18/20 Range/Units 06:45 06:45 06:45 WBC 9.85 (3.98-10.04) K/mm3 RBC 4.53 (3.98-5.22) M/mm3 Hgb 13.5 (11.2-15.7) gm/dl Hct 42.5 (34.1-44.9) % MCV 93.8 (79.4-94.8) fl MCH 29.8 (25.6-32.2) pg MCHC 31.8 L (32.2-35.5) g/dl RDW Std Deviation 46.1 (36.4-46.3) fL Plt Count 256 (182-369) K/mm3 MPV 10.4 (9.4-12.3) fl Neut % (Auto) 78.8 H (34.0-71.1) % Lymph % (Auto) 13.0 L (19.3-51.7) % [place] % (Auto) 7.8 (4.7-12.5) % Eos % (Auto) 0 L (0.7-5.8) Baso % (Auto) 0.1 (0.1-1.2) % Neut # (Auto) 7.76 H (1.56-6.13) K/mm3 Lymph # (Auto) 1.28 (1.18-3.74) K/mm3 [place] # (Auto) 0.77 H (0.24-0.36) K/mm3 Eos # (Auto) 0.00 L (0.04-0.36) K/mm3 Baso # (Auto) 0.01 (0.01-0.08) K/mm3 PT 33.4 H (9.7-12.0) SECONDS INR 3.19 Sodium 146 H (136-145) mEq/L Potassium 4.1 (3.5-5.1) mEq/L Chloride 108 H (98-107) mEq/L Carbon Dioxide 30 (21-32) mEq/L Anion Gap 12.1 (5-15) BUN 20 H (7-18) mg/dL Creatinine 0.8 (0.55-1.02) mg/dL Est Cr Clr Drug Dosing 64.58 mL/min Estimated GFR (MDRD) > 60 (>60) mL/min BUN/Creatinine Ratio 25.0 H (14-18) Glucose 103 H (70-99) mg/dL Calcium 8.2 L (8.5-10.1) mg/dL Total Bilirubin 0.3 (0.2-1.0) mg/dL AST 40 H (15-37) U/L ALT 84 H (14-59) U/L Alkaline Phosphatase 54 (46-116) U/L C-Reactive Protein 4.3 H* (<1.0) mg/dL Total Protein 6.5 (6.4-8.2) g/dl Albumin 2.8 L (3.4-5.0) g/dl Globulin 3.7 gm/dL Albumin/Globulin Ratio 0.8 L (1-2) Result Diagrams: 10/18/20 06:45 05/17/21 06:45 Tate Results Last 24 hrs: Microbiology 10/14/20 20:40 Aerobic Blood Culture - Preliminary Blood - Venous - Lab Draw NO GROWTH AFTER 3 DAYS Anaerobic Blood Culture - Preliminary NO GROWTH AFTER 3 DAYS 10/14/20 20:35 Aerobic Blood Culture - Preliminary Blood - Venous NO GROWTH AFTER 3 DAYS Anaerobic Blood Culture - Preliminary NO GROWTH AFTER 3 DAYS 10/15/20 20:15 Gram Stain - Final Sputum - Expectorated Sputum Culture - Final REDUCED NORMAL RESPIRATORY TIGRE Sepsis Event Note - Evaluation Sepsis Screening Result: No Definite Risk - Focused Exam Vital Signs: Vital Signs Temp Pulse Resp BP Pulse Ox Pulse Ox 10/18/20 08:25 90 L 10/18/20 07:23 97.5 F 75 20 116/74 93 L 10/18/20 05:34 98.1 F 80 12 121/71 92 L 10/18/20 00:00 92 L - Problem List & Annotations (1) Acute respiratory failure with hypoxia SNOMED Code(s): 62048045, 852342369 Code(s): J96.01 - ACUTE RESPIRATORY FAILURE WITH HYPOXIA Status: Acute Priority: High Current Visit: Yes (2) COVID-19 SNOMED Code(s): 481623933 Code(s): U07.1 - COVID-19 Status: Acute Priority: High Current Visit: Yes (3) Drug-induced hyperglycemia SNOMED Code(s): 685870773 Code(s): R73.9 - HYPERGLYCEMIA, UNSPECIFIED; T50.905A - ADVERSE EFFECT OF UNSP DRUG/MEDS/BIOL SUBST, INIT Status: Acute Priority: Medium Current Visit: Yes (4) Hypocalcemia SNOMED Code(s): 3334523 Code(s): E83.51 - HYPOCALCEMIA Status: Acute Priority: High Current Visit: Yes (5) Hypoxia SNOMED Code(s): 011421262 Code(s): R09.02 - HYPOXEMIA Status: Acute Priority: High Current Visit: Yes (6) Prediabetes SNOMED Code(s): 442008346 Code(s): R73.03 - PREDIABETES Status: Acute Priority: High Current Visit: Yes (7) Transaminitis SNOMED Code(s): 452160828, 527474778 Code(s): R74.01 - ELEVATION OF LEVELS OF LIVER TRANSAMINASE LEVELS Status: Acute Priority: Medium Current Visit: Yes (8) COPD (chronic obstructive pulmonary disease) SNOMED Code(s): 39614085 Code(s): J44.9 - CHRONIC OBSTRUCTIVE PULMONARY DISEASE, UNSPECIFIED Status: Chronic Priority: High Current Visit: Yes Qualifiers: COPD type: emphysema Emphysema type: unspecified Qualified Code(s): J43.9 - Emphysema, unspecified (9) Obesity (BMI 30-39.9) SNOMED Code(s): 224981204, 741467053 Code(s): E66.9 - OBESITY, UNSPECIFIED Status: Chronic Priority: Medium Current Visit: Yes (10) Chronic anticoagulation SNOMED Code(s): 138287095 Code(s): Z79.01 - INVESTMENT BROKER (CURRENT) USE OF ANTICOAGULANTS Status: Chronic Priority: Low Current Visit: No (11) HTN (hypertension) SNOMED Code(s): 76064335 Code(s): I10 - ESSENTIAL (PRIMARY) HYPERTENSION Status: Chronic Priority: Low Current Visit: No Qualifiers: Hypertension type: unspecified Qualified Code(s): I10 - Essential (primary) hypertension (12) History of pulmonary embolism SNOMED Code(s): 167141894 Code(s): Z86.711 - PERSONAL HISTORY OF PULMONARY EMBOLISM Status: Chronic Priority: Medium Current Visit: No - Problem List Review Problem List Initiated/Reviewed/Updated: Yes - Assessment Assessment:: Assessment: Acute hypoxic respiratory failure -Etiology could be pneumonia, emphysema -Not on home oxygen -Pulse ox -Oxygen therapy, high flow/as needed to keep oxygen saturation greater than 88- 95% -Requiring 1.5L O2 currently Pneumonia, Covid 19 or CAP -CXR -no acute change. But it is felt patient has a clinical pneumonia -Covid 19 test positive in in the ER -Day 5 of Rocephin, Remdesivir, Dexamethasone; has received 3 doses of Azithromycin -Ferritin 349, D-dimer <0.19 (chronic use of warfarin), CRP 5.8 on admission -MRSA screen negative Transaminitis, stable -Could be due to infection of COVID-19 -AST 38. [place]bil 0.4 and Al phos 59 on admission -Total bilirubin 0.3, AST 40, ALT 84, alkaline phosphatase 54 today. -Monitor closely as patient is on remdesivir Hx of COPD -As per patient, she has emphysema -Former smoker, quit smoking 6 years ago -Uses prn albuterol inhaler HTN -Home medication does not include blood pressure medication -Hydralazine as needed -BPs have been good thus far Hx of PE and DVT, stable -On warfarin at home -Therapeutic INR 2.47 on admission -Monitor INRs-Pharmacy to dose Warfarin -D-Dimer <0.19 Hypocalcemia -Calcium trending down since admission -8.2 today; trending up Pre-diabetes Obesity -BMI of 37.8 -A1C 5.9 -monitor accuchecks as patient is on steroids - Plan Plan:: Patient is a 60-year-old female with a history of hypertension, 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 Covid positive in the ER Assessment: Acute hypoxic respiratory failure -Etiology could be pneumonia, emphysema -Not on home oxygen -Pulse ox -Oxygen therapy, high flow/as needed to keep oxygen saturation greater than 88- 95% -Requiring 2L O2 currently Pneumonia, Covid 19 or CAP -CXR -no acute change. But it is felt patient has a clinical pneumonia -Covid 19 test positive in in the ER -Symptoms started 3 to 4 days ago -Ferritin 349, D-dimer <0.19 (chronic use of warfarin), CRP 5.8 on admission -MRSA screen negative Transaminitis, stable -Could be due to infection of COVID-19 -AST 38. [place] 0.4 and Al phos 59 on admission -Total bilirubin 0.3, AST 59, ALT 91, alkaline phosphatase 53 today. -Monitor closely as patient is on remdesivir Hx of COPD -As per patient, she has emphysema -Former smoker, quit smoking 6 years ago HTN -Home medication does not include blood pressure medication -Hydralazine as needed -BPs have been good thus far Hx of PE and DVT, stable -On warfarin at home -Therapeutic INR 2.47 on admission -Monitor INRs -D-Dimer <0.19 Hypocalcemia -Calcium trending down since admission -8.2 on admission, 7.6 today Pre-diabetes Obesity -BMI of 37.8 -A1C 5.9 Plan: 1. We will admitted to telemetry as an inpatient 2. RT to oxygen to keep saturations goal of 88-95% Remdesivir 200mg iv x 1 and then 100mg iv daily x 4. Ceftriaxone x5 days, azithromycin x3 days, dexamethasone 6 mg p.o. daily x 10 days and continue warfarin. Inhalers Continue incentive spirometry and Acapella PRN albuterol inhaler PT/OT to eval and treat and increase activity Prone positioning CRP and liver functions daily Monitor electrolytes. replace and repeat it if necessary services program manager for discharge planning Monitor blood sugars daily due to steroid Zinc and vitamin D supplementation 3. Start BIDAC 1gm calcium carbonate supplementation 4. ADA diet and mold filler plastic dolls consultation 5. Repeat CMPs daily 6. Repeat INR daily in morning 7. DVT prophylaxis: Warfarin 8. CODE STATUS: Full Deposition: 4-5 days total 10/18/20 Plan: -continue telemetry with continuous pulse oximetry -RT continue to titrate oxygen to keep saturations goal of 88-95% -continue Remdesevir for a total of 5 days -Pharmacy to dose coumadin -day 5 of Rocephin, Dexamethasone, and Remdesivir; has received 3 days of azithromax -albuterol inhalers prn -Continue incentive spirometry and Acapella -PT/OT to eval and treat and increase activity -Prone positioning -CRP and liver functions daily -Monitor electrolytes. replace and repeat it if necessary -services program manager for discharge planning -Monitor blood sugars daily due to steroid -Zinc and vitamin D supplementation -continue BIDAC 1gm calcium carbonate supplementation -ADA diet and mold filler plastic dolls consultation -Repeat CMPs daily -Repeat INR daily in morning -DVT prophylaxis: Warfarin -CODE STATUS: Full Deposition: 4-5 days total; potential discharge to home tomorrow
[2020-10-18] MEDS ORDERED: Warfarin 3 MG Tab PO SCH (18:00)
[2020-10-18] MEDS: REMDESIVIR 100 MG in Sodium Chloride 0.9% 100 ML IV SCH (19:39)
[2020-10-18] MEDS: cefTRIAXone 2 GM in Sodium Chloride 0.9% 100 ML IV SCH (20:52)
[2020-10-18] MEDS: Rosuvastatin 10 MG Tab PO SCH (20:52)
[2020-10-19] MEDS: Calcium Carbonate 500 MG Tab.Chew PO SCH (05:08)
[2020-10-19] MEDS: Albuterol 6.7 GM Inhaler INH PRN ×2 (05:21→08:34)
[2020-10-19] MEDS ORDERED: Potassium Chloride 20 MEQ Tab.ER PO ONE (07:58)
[2020-10-19 08:09] VITALS: BP 132/65; PULSE 76
[2020-10-19] MEDS: Zinc Sulfate 220 MG Cap PO SCH (08:23)
[2020-10-19] MEDS: Cholecalciferol (Vitamin D3) 5,000 UNIT Cap PO SCH (08:24)
[2020-10-19] MEDS: Dexamethasone 4 MG Tab PO SCH (08:24)
[2020-10-19] MEDS: DULoxetine 30 MG Cap PO SCH (08:25)
--- NOTE | 2020-10-19 09:23 | PCM.DCSUM1 ---
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 Her diarrhea improved but her shortness of breath has been worsening since yesterday. She has not received COVID-19 vaccine yet. Otherwise patient is fine. In the ER, she was found to to be oxygen desaturated 82%. Covid 19 was positive. Chest x-ray showed no acute change. She was subsequently admitted to the medical floor and Covid treatment was started. Diagnosis: Stroke: No - Discharge Data Discharge Date: 10/19/20 Discharge Disposition: Home, Self-Care 01 Condition: Good - Referral to Home Health Primary Care Physician: Cassie Hammond MD - Discharge Diagnosis/Problem(s) (1) Acute respiratory failure with hypoxia SNOMED Code(s): 93305918, 077074559 ICD Code: J96.01 - ACUTE RESPIRATORY FAILURE WITH HYPOXIA Status: Acute Priority: High Current Visit: Yes (2) COVID-19 SNOMED Code(s): 487173369 ICD Code: U07.1 - COVID-19 Status: Acute Priority: High Current Visit: Yes (3) Drug-induced hyperglycemia SNOMED Code(s): 010226966 ICD Code: R73.9 - HYPERGLYCEMIA, UNSPECIFIED; T50.905A - ADVERSE EFFECT OF UNSP DRUG/MEDS/BIOL SUBST, INIT Status: Acute Priority: Medium Current Visit: Yes (4) Hypocalcemia SNOMED Code(s): 8077923 ICD Code: E83.51 - HYPOCALCEMIA Status: Acute Priority: High Current Visit: Yes (5) Hypoxia SNOMED Code(s): 954086767 ICD Code: R09.02 - HYPOXEMIA Status: Acute Priority: High Current Visit: Yes (6) Prediabetes SNOMED Code(s): 412323119 ICD Code: R73.03 - PREDIABETES Status: Acute Priority: High Current Visit: Yes (7) Transaminitis SNOMED Code(s): 826720676, 393254516 ICD Code: R74.01 - ELEVATION OF LEVELS OF LIVER TRANSAMINASE LEVELS Status: Acute Priority: Medium Current Visit: Yes (8) COPD (chronic obstructive pulmonary disease) SNOMED Code(s): 67149311 ICD Code: J44.9 - CHRONIC OBSTRUCTIVE PULMONARY DISEASE, UNSPECIFIED Status: Chronic Priority: High Current Visit: Yes Qualifiers: COPD type: emphysema Emphysema type: unspecified Qualified Code(s): J43.9 - Emphysema, unspecified (9) Obesity (BMI 30-39.9) SNOMED Code(s): 864340180, 268694663 ICD Code: E66.9 - OBESITY, UNSPECIFIED Status: Chronic Priority: Medium Current Visit: Yes (10) Chronic anticoagulation SNOMED Code(s): 024790729 ICD Code: Z79.01 - STOCKROOM ATTENDANT (CURRENT) USE OF ANTICOAGULANTS Status: Chronic Priority: Low Current Visit: No (11) HTN (hypertension) SNOMED Code(s): 57138809 ICD Code: I10 - ESSENTIAL (PRIMARY) HYPERTENSION Status: Chronic Priority: Low Current Visit: No Qualifiers: Hypertension type: unspecified Qualified Code(s): I10 - Essential (primary) hypertension (12) History of pulmonary embolism SNOMED Code(s): 844467472 ICD Code: Z86.711 - PERSONAL HISTORY OF PULMONARY EMBOLISM Status: Chronic Priority: Medium Current Visit: No - Patient Summary/Data Consults: Consultations 10/17/20 10:48 Consult to Director Learning [CONS] Routine 10/18/20 09:10 Consult to Director Learning [CONS] Routine Hospital Course: Patient is a 60-year-old female with a history of hypertension, 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 Covid positive in the ER Assessment: Acute hypoxic respiratory failure scoliosis -Etiology could be pneumonia, emphysema -Not on home oxygen -Pulse ox -Oxygen therapy, high flow/as needed to keep oxygen saturation greater than 92% Pneumonia, Covid 19 or CAP -CXR -no acute change. But i feel patient has a clinical pneumonia -Covid 19 test positive in in the ER -Symptoms started 3 to 4 days ago -Ferritin 349, D-dimer <0.19 (chronic use of warfarin), CRP 5.8 on admission -MRSA screen negative Transaminitis -Could be due to infection of COVID-19 -AST 38. Tbil 0.4 and Al phos 59 on admission -AST normalized today Hx of COPD -As per patient, she has emphysema -Former smoker, quit smoking 6 years ago HTN -Home medication does not include blood pressure medication -Hydralazine as needed Hx of PE and DVT -on warfarin -Therapeutic INR 2.47 on admission Plan: 1. We will admitted to telemetry as an inpatient 2. RT to oxygen to keep saturations greater than 92% Remdesivir 200mg iv x 1 and then 100mg iv daily x 4. Ceftriaxone, azithromycin, dexamethasone 6 mg p.o. daily and continue warfarin. Inhalers She does not have diabetes (hemoglobin A1c 5.9) but I will put her on insulin sliding scale since she is started on high-dose steroid Continue incentive spirometry and Acapella Dietitian consult regarding nutritional needs PT/OT to eval and treat and increase activity Prone positioning D-dimer, CRP, and liver functions daily Monitor electrolytes. replace and repeat it if necessary donor services team leader for discharge planning Monitor blood sugars 3. Repeat the liver function in morning 4. Repeat INR daily in morning 5. DVT prophylaxis: Warfarin 6. CODE STATUS: Full Deposition: 2 to 3 days Plan: Continue incentive spirometry and Acapella PRN albuterol inhaler Prone positioning CRP and liver functions daily Monitor electrolytes. replace and repeat it if necessary donor services team leader for discharge planning Monitor blood sugars daily due to steroid Zinc and vitamin D supplementation Start BIDAC 1gm calcium carbonate supplementation ADA diet and clay artist consultation Repeat CMPs daily Repeat INR daily in morning Plan: -continue telemetry with continuous pulse oximetry -RT continue to titrate oxygen to keep saturations goal of 88-95% -continue Remdesevir for a total of 5 days -Pharmacy to dose coumadin -day 5 of Rocephin, Dexamethasone, and Remdesivir; has received 3 days of azithromax -albuterol inhalers prn -Continue incentive spirometry and Acapella -PT/OT to eval and treat and increase activity -Prone positioning -CRP and liver functions daily -Monitor electrolytes. replace and repeat it if necessary -donor services team leader for discharge planning -Monitor blood sugars daily due to steroid -Zinc and vitamin D supplementation -continue BIDAC 1gm calcium carbonate supplementation -ADA diet and clay artist consultation -Repeat CMPs daily -Repeat INR daily in morning -DVT prophylaxis: Warfarin -CODE STATUS: Full Day of Discharge : -pt states that she is feeling better, however is still requiring 1.5 liters of oxygen. With patient's history of emphysema, it is likely she will take longer to wean off O2. -has completed Rocephin, Azithromycin, and Remdesivir treatments -labs continue to improve -will be discharged to home on home O2. -RT to qualify the patient for home O2 -Will complete 10 day course of Dexamethasone at home -Follow up appointment is already scheduled with her primary care provider, Dr. Hammond. - Patient Instructions Diet: Diabetic Diet Activity: As Tolerated, Cough & Deep Breathe Activity, Other: incentive spirometry and acapella Notify Provider of: Fever, Nausea and/or Vomiting - Discharge Plan Prescriptions/Med Rec: dexAMETHasone [Dexamethasone] 6 mg PO DAILY #4 tablet Cholecalciferol (Vitamin D3) [Vitamin D3] 5,000 unit PO DAILY #30 cap Home Medications: Home Meds DULoxetine [Cymbalta] 60 mg PO DAILY 11/16/16 [History] Rosuvastatin [Crestor] 10 mg PO BEDTIME 11/16/16 [History] Warfarin [Coumadin] 1 tab PO SUMOWETHFRSA 11/16/16 [History] Albuterol Sulfate [Albuterol Sulfate Hfa] 2 puff IH Q4H PRN 10/14/20 [History] Warfarin [Coumadin] 2.5 mg PO TU 10/14/20 [History] Cholecalciferol (Vitamin D3) [Vitamin D3] 5,000 unit PO DAILY #30 cap 10/19/20 [Rx] dexAMETHasone [Dexamethasone] 6 mg PO DAILY #4 tablet 10/19/20 [Rx] Oxygen Therapy Mode: Nasal Cannula Oxygen Flow Rate (L/min): 1.5 Maintain SpO2% greater than: 90 Patient Handouts: Hypoxia, COVID-19 Frequently Asked Questions, COVID-19, Home Oxygen Use, Adult, Prevent the Spread of COVID-19 if You Are Sick - CDC, Sepsis, Self Care, Adult Forms: ED Department Discharge Referrals: Cassie Hammond MD [Primary Care Provider] - 10/25/20 9:00 am (This is the check in time, your appointment is at 09:30) - Discharge Summary/Plan Comment DC Time >30 min.: No - General Info Date of Service: 10/19/20 Admission Dx/Problem (Free Text: Admission Diagnosis/Problem Admission Diagnosis/Problem Hypoxia Subjective Update: Judy states she is feeling much better today, however she is still tired. Cough is decreased. Lungs are clear. She has completed her Rocephin, Azithromax, and Remdesivir treatments. States she feels like she is ready to go home, however still requires 1.5liters O2 per nasal cannula. Will qualify her for home O2. Functional Status: Reports: Pain Controlled, Tolerating Diet, Ambulating, Urinating, Incentive Spirometry - Review of Systems General: Reports: No Symptoms HEENT: Reports: No Symptoms Pulmonary: Reports: Shortness of Breath (with exertion), Cough (occasional). Denies: Sputum, Wheezing Cardiovascular: Reports: No Symptoms Gastrointestinal: Reports: No Symptoms Genitourinary: Reports: No Symptoms Musculoskeletal: Reports: No Symptoms Skin: Reports: No Symptoms Neurological: Reports: No Symptoms Psychiatric: Reports: No Symptoms - Patient Data Vitals - Most Recent: Last Vital Signs Temp 98.1 F 10/19/20 07:30 Pulse 76 10/19/20 07:30 Resp 16 10/19/20 07:30 BP 132/65 10/19/20 07:30 Pulse Ox 87 L 10/19/20 08:35 Weight - Most Recent: 219 lb I&O - Last 24 hours: Intake & Output 10/18/20 10/19/20 10/19/20 22:59 06:59 14:59 Intake Total 1340 600 Output Total 1300 550 Balance 40 50 Lab Results - Last 24 hrs: Laboratory Results - last 24 hr 10/19/20 10/19/20 10/19/20 Range/Units 05:56 05:56 05:56 WBC 10.14 H (3.98-10.04) K/mm3 RBC 4.53 (3.98-5.22) M/mm3 Hgb 13.5 (11.2-15.7) gm/dl Hct 41.8 (34.1-44.9) % MCV 92.3 (79.4-94.8) fl MCH 29.8 (25.6-32.2) pg MCHC 32.3 (32.2-35.5) g/dl RDW Std Deviation 45.3 (36.4-46.3) fL Plt Count 286 (182-369) K/mm3 MPV 10.2 (9.4-12.3) fl Neut % (Auto) 79.1 H (34.0-71.1) % Lymph % (Auto) 12.7 L (19.3-51.7) % [place] % (Auto) 7.5 (4.7-12.5) % Eos % (Auto) 0 L (0.7-5.8) Baso % (Auto) 0.1 (0.1-1.2) % Neut # (Auto) 8.02 H (1.56-6.13) K/mm3 Lymph # (Auto) 1.29 (1.18-3.74) K/mm3 [place] # (Auto) 0.76 H (0.24-0.36) K/mm3 Eos # (Auto) 0.00 L (0.04-0.36) K/mm3 Baso # (Auto) 0.01 (0.01-0.08) K/mm3 PT 38.5 H (9.7-12.0) SECONDS INR 3.69 Sodium 145 (136-145) mEq/L Potassium 3.6 (3.5-5.1) mEq/L Chloride 108 H (98-107) mEq/L Carbon Dioxide 27 (21-32) mEq/L Anion Gap 13.6 (5-15) BUN 22 H (7-18) mg/dL Creatinine 0.8 (0.55-1.02) mg/dL Est Cr Clr Drug Dosing 64.58 mL/min Estimated GFR (MDRD) > 60 (>60) mL/min BUN/Creatinine Ratio 27.5 H (14-18) Glucose 110 H (70-99) mg/dL Calcium 8.1 L (8.5-10.1) mg/dL Total Bilirubin 0.4 (0.2-1.0) mg/dL AST 27 (15-37) U/L ALT 65 H (14-59) U/L Alkaline Phosphatase 54 (46-116) U/L C-Reactive Protein 4.0 H* (<1.0) mg/dL Total Protein 6.7 (6.4-8.2) g/dl Albumin 2.8 L (3.4-5.0) g/dl Globulin 3.9 gm/dL Albumin/Globulin Ratio 0.7 L (1-2) MANNY Results - Last 24 hrs: Microbiology 10/14/20 20:40 Aerobic Blood Culture - Preliminary Blood - Venous - Lab Draw NO GROWTH AFTER 4 DAYS Anaerobic Blood Culture - Preliminary NO GROWTH AFTER 4 DAYS 10/14/20 20:35 Aerobic Blood Culture - Preliminary Blood - Venous NO GROWTH AFTER 4 DAYS Anaerobic Blood Culture - Preliminary NO GROWTH AFTER 4 DAYS Med Orders - Current: Current Medications Acetaminophen (Acetaminophen 325 Mg Tab) 650 mg PO Q4H PRN PRN Reason: Pain (mild 1-3) Last Admin: 10/17/20 15:56 Dose: 650 mg Documented by: Albuterol (Albuterol 6.7 Gm Inhaler) 0 gm INH Q4H PRN PRN Reason: Shortness of Breath Last Admin: 10/19/20 08:34 Dose: 2 inhaler Documented by: Calcium Carbonate/Glycine (Calcium Carbonate 500 Mg Tab.Chew) 1,000 mg PO BIDAC [facility] Last Admin: 10/19/20 05:08 Dose: 1,000 mg Documented by: Cholecalciferol (Cholecalciferol (Vitamin D3) 5,000 Unit Cap) 5,000 unit PO ULCIO LY [facility] Last Admin: 10/19/20 08:24 Dose: 5,000 unit Documented by: Dexamethasone (Dexamethasone 4 Mg Tab) 6 mg PO DAILY [facility] Stop: 10/23/20 09:01 Last Admin: 10/19/20 08:24 Dose: 6 mg Documented by: Duloxetine HCl (Duloxetine 30 Mg Cap) 60 mg PO DAILY [facility] Last Admin: 10/19/20 08:25 Dose: 60 mg Documented by: Hydralazine HCl (Hydralazine 20 Mg/Ml Sdv) 10 mg IVPUSH Q4H PRN PRN Reason: Hypertension Promethazine HCl 12.5 mg/ (Sodium Chloride) 50.5 mls @ 100 mls/hr IV Q6H PRN PRN Reason: Nausea/Vomiting Ceftriaxone Sodium 2 gm/ (Sodium Chloride) 100 mls @ 200 mls/hr IV Q24H [facility] Stop: 10/19/20 21:29 Last Admin: 10/18/20 20:52 Dose: 200 mls/hr Documented by: Melatonin (Melatonin 3 Mg Tab) 3 mg PO BEDTIME PRN PRN Reason: Insomnia Rosuvastatin Calcium (Rosuvastatin 10 Mg Tab) 10 mg PO BEDTIME [facility] Last Admin: 10/18/20 20:52 Dose: 10 mg Documented by: Warfarin Sodium (Pharmacy To Dose - Warfarin) 0 dose PO DAILY PRN PRN Reason: RX TO DOSE WARFARIN Warfarin Sodium (Warfarin Sliding Scale) 0 each PO QPM [facility] Stop: 10/19/20 18:01 Zinc Sulfate (Zinc Sulfate 220 Mg Cap) 220 mg PO DAILY [facility] Last Admin: 10/19/20 08:23 Dose: 220 mg Documented by: Discontinued Medications Acetaminophen (Acetaminophen 325 Mg Tab) 650 mg PO NOW ONE Stop: 10/14/20 18:10 Last Admin: 10/14/20 18:40 Dose: 650 mg Documented by: Acetaminophen (Acetaminophen 325 Mg Tab) Confirm Administered Dose 650 mg .ROUTE .STK-MED ONE Stop: 10/14/20 18:38 Last Admin: 10/14/20 18:41 Dose: Not Given Documented by: Acetaminophen (Acetaminophen 650 Mg Supp) 650 mg RECTAL Q6H PRN PRN Reason: Pain (mild 1-3) Remdesivir 200 mg/ Sodium (Chloride) 250 mls @ 250 mls/hr IV ONETIME ONE Stop: 10/14/20 21:31 Last Admin: 10/14/20 20:54 Dose: 250 mls/hr Documented by: Remdesivir 100 mg/ Sodium (Chloride) 100 mls @ 100 mls/hr IV Q24H [facility] Stop: 10/18/20 20:59 Last Admin: 10/18/20 19:39 Dose: 100 mls/hr Documented by: Ceftriaxone Sodium 2 gm/ (Sodium Chloride) 100 mls @ 200 mls/hr IV Q24H [facility] Last Admin: 10/14/20 22:05 Dose: 200 mls/hr Documented by: Azithromycin 500 mg/ Sodium (Chloride) 250 mls @ 250 mls/hr IV Q24H [facility] Last Admin: 10/14/20 23:16 Dose: 250 mls/hr Documented by: Azithromycin 500 mg/ Sodium (Chloride) 250 mls @ 250 mls/hr IV Q24H [facility] Stop: 10/17/20 22:29 Last Admin: 10/17/20 20:50 Dose: 250 mls/hr Documented by: Insulin Human Lispro (Insulin Lispro 100 Unit/Ml 10 Ml Vial) 0 unit SUBCUT QIDACANDBED [facility]; Protocol Last Admin: 10/17/20 06:16 Dose: Not Given Documented by: Morphine Sulfate (Morphine 2 Mg/Ml Syringe) 2 mg IVPUSH Q4H PRN PRN Reason: Pain (severe 7-10) Stop: 10/15/20 21:04 Potassium Chloride (Potassium Chloride 20 Meq Tab.Er) 40 meq PO ONETIME ONE Stop: 10/19/20 07:59 Last Admin: 10/19/20 08:24 Dose: 40 meq Documented by: Warfarin Sodium (Warfarin 5 Mg Tab) 5 mg PO [id number] [facility] Last Admin: 10/17/20 17:00 Dose: 5 mg Documented by: Warfarin Sodium (Warfarin 3 Mg Tab) 3 mg PO QPM [facility] Stop: 10/18/20 18:01 Last Admin: 10/18/20 17:00 Dose: 3 mg Documented by: - Exam Quality Assessment: Reports: Supplemental Oxygen (1.5 liters per NC), DVT Prophylaxis (coumadin) General: Reports: Alert, Oriented, Cooperative, No Acute Distress HEENT: Reports: Pupils Equal, Mucous Membr. Moist/[place] Neck: Reports: Supple, Trachea Midline Lungs: Reports: Clear to Auscultation, Normal Respiratory Effort Cardiovascular: Reports: Regular Rate, Regular Rhythm, No Murmurs GI/Abdominal Exam: Normal Bowel Sounds, Soft, Non-Tender, No Distention (Female) Exam: Deferred Rectal (Female) Exam: Deferred Back Exam: Reports: Normal Inspection Extremities: Normal Inspection, No Pedal Edema, Normal Capillary Refill Skin: Reports: Warm, Dry, Intact Neurological: Reports: No New Focal Deficit Psy/Mental Status: Reports: Alert, Normal Affect, Normal Mood <Ruddy Thao - Last Filed: 10/19/20 14:25> Discharge Summary - Hospital Course Free Text/Narrative:: I agree with the above assessment and plan. - Referral to Home Health Primary Care Physician: Cassie Hammond MD - Patient Summary/Data Consults: Consultations 10/17/20 10:48 Consult to Director Learning [CONS] Routine 10/18/20 09:10 Consult to Director Learning [CONS] Routine - Patient Data Vitals - Most Recent: Last Vital Signs Temp 98.1 F 10/19/20 07:30 Pulse 76 10/19/20 07:30 Resp 16 10/19/20 07:30 BP 132/65 10/19/20 07:30 Pulse Ox 87 L 10/19/20 08:35 I&O - Last 24 hours: Intake & Output 10/18/20 10/19/20 10/19/20 22:59 06:59 14:59 Intake Total 1340 600 Output Total 1300 550 Balance 40 50 Lab Results - Last 24 hrs: Laboratory Results - last 24 hr 10/19/20 10/19/20 10/19/20 Range/Units 05:56 05:56 05:56 WBC 10.14 H (3.98-10.04) K/mm3 RBC 4.53 (3.98-5.22) M/mm3 Hgb 13.5 (11.2-15.7) gm/dl Hct 41.8 (34.1-44.9) % MCV 92.3 (79.4-94.8) fl MCH 29.8 (25.6-32.2) pg MCHC 32.3 (32.2-35.5) g/dl RDW Std Deviation 45.3 (36.4-46.3) fL Plt Count 286 (182-369) K/mm3 MPV 10.2 (9.4-12.3) fl Neut % (Auto) 79.1 H (34.0-71.1) % Lymph % (Auto) 12.7 L (19.3-51.7) % [place] % (Auto) 7.5 (4.7-12.5) % Eos % (Auto) 0 L (0.7-5.8) Baso % (Auto) 0.1 (0.1-1.2) % Neut # (Auto) 8.02 H (1.56-6.13) K/mm3 Lymph # (Auto) 1.29 (1.18-3.74) K/mm3 [place] # (Auto) 0.76 H (0.24-0.36) K/mm3 Eos # (Auto) 0.00 L (0.04-0.36) K/mm3 Baso # (Auto) 0.01 (0.01-0.08) K/mm3 PT 38.5 H (9.7-12.0) SECONDS INR 3.69 Sodium 145 (136-145) mEq/L Potassium 3.6 (3.5-5.1) mEq/L Chloride 108 H (98-107) mEq/L Carbon Dioxide 27 (21-32) mEq/L Anion Gap 13.6 (5-15) BUN 22 H (7-18) mg/dL Creatinine 0.8 (0.55-1.02) mg/dL Est Cr Clr Drug Dosing 64.58 mL/min Estimated GFR (MDRD) > 60 (>60) mL/min BUN/Creatinine Ratio 27.5 H (14-18) Glucose 110 H (70-99) mg/dL Calcium 8.1 L (8.5-10.1) mg/dL Total Bilirubin 0.4 (0.2-1.0) mg/dL AST 27 (15-37) U/L ALT 65 H (14-59) U/L Alkaline Phosphatase 54 (46-116) U/L C-Reactive Protein 4.0 H* (<1.0) mg/dL Total Protein 6.7 (6.4-8.2) g/dl Albumin 2.8 L (3.4-5.0) g/dl Globulin 3.9 gm/dL Albumin/Globulin Ratio 0.7 L (1-2) MANNY Results - Last 24 hrs: Microbiology 10/14/20 20:40 Aerobic Blood Culture - Preliminary Blood - Venous - Lab Draw NO GROWTH AFTER 4 DAYS Anaerobic Blood Culture - Preliminary NO GROWTH AFTER 4 DAYS 10/14/20 20:35 Aerobic Blood Culture - Preliminary Blood - Venous NO GROWTH AFTER 4 DAYS Anaerobic Blood Culture - Preliminary NO GROWTH AFTER 4 DAYS Med Orders - Current: Current Medications Acetaminophen (Acetaminophen 325 Mg Tab) 650 mg PO Q4H PRN PRN Reason: Pain (mild 1-3) Last Admin: 10/17/20 15:56 Dose: 650 mg Documented by: Albuterol (Albuterol 6.7 Gm Inhaler) 0 gm INH Q4H PRN PRN Reason: Shortness of Breath Last Admin: 10/19/20 08:34 Dose: 2 inhaler Documented by: Calcium Carbonate/Glycine (Calcium Carbonate 500 Mg Tab.Chew) 1,000 mg PO BIDAC [facility] Last Admin: 10/19/20 05:08 Dose: 1,000 mg Documented by: Cholecalciferol (Cholecalciferol (Vitamin D3) 5,000 Unit Cap) 5,000 unit PO DAILY [facility] Last Admin: 10/19/20 08:24 Dose: 5,000 unit Documented by: Dexamethasone (Dexamethasone 4 Mg Tab) 6 mg PO DAILY [facility] Stop: 10/23/20 09:01 Last Admin: 10/19/20 08:24 Dose: 6 mg Documented by: Duloxetine HCl (Duloxetine 30 Mg Cap) 60 mg PO DAILY [facility] Last Admin: 10/19/20 08:25 Dose: 60 mg Documented by: Hydralazine HCl (Hydralazine 20 Mg/Ml Sdv) 10 mg IVPUSH Q4H PRN PRN Reason: Hypertension Promethazine HCl 12.5 mg/ (Sodium Chloride) 50.5 mls @ 100 mls/hr IV Q6H PRN PRN Reason: Nausea/Vomiting Ceftriaxone Sodium 2 gm/ (Sodium Chloride) 100 mls @ 200 mls/hr IV Q24H [facility] Stop: 10/19/20 21:29 Last Admin: 10/18/20 20:52 Dose: 200 mls/hr Documented by: Melatonin (Melatonin 3 Mg Tab) 3 mg PO BEDTIME PRN PRN Reason: Insomnia Rosuvastatin Calcium (Rosuvastatin 10 Mg Tab) 10 mg PO BEDTIME [facility] Last Admin: 10/18/20 20:52 Dose: 10 mg Documented by: Warfarin Sodium (Pharmacy To Dose - Warfarin) 0 dose PO DAILY PRN PRN Reason: RX TO DOSE WARFARIN Warfarin Sodium (Warfarin Sliding Scale) 0 each PO QPM [facility] Stop: 10/19/20 18:01 Zinc Sulfate (Zinc Sulfate 220 Mg Cap) 220 mg PO DAILY [facility] Last Admin: 10/19/20 08:23 Dose: 220 mg Documented by: Discontinued Medications Acetaminophen (Acetaminophen 325 Mg Tab) 650 mg PO NOW ONE Stop: 10/14/20 18:10 Last Admin: 10/14/20 18:40 Dose: 650 mg Documented by: Acetaminophen (Acetaminophen 325 Mg Tab) Confirm Administered Dose 650 mg .ROUTE .STK-MED ONE Stop: 10/14/20 18:38 Last Admin: 10/14/20 18:41 Dose: Not Given Documented by: Acetaminophen (Acetaminophen 650 Mg Supp) 650 mg RECTAL Q6H PRN PRN Reason: Pain (mild 1-3) Remdesivir 200 mg/ Sodium (Chloride) 250 mls @ 250 mls/hr IV ONETIME ONE Stop: 10/14/20 21:31 Last Admin: 10/14/20 20:54 Dose: 250 mls/hr Documented by: Remdesivir 100 mg/ Sodium (Chloride) 100 mls @ 100 mls/hr IV Q24H [facility] Stop: 10/18/20 20:59 Last Admin: 10/18/20 19:39 Dose: 100 mls/hr Documented by: Ceftriaxone Sodium 2 gm/ (Sodium Chloride) 100 mls @ 200 mls/hr IV Q24H [facility] Last Admin: 10/14/20 22:05 Dose: 200 mls/hr Documented by: Azithromycin 500 mg/ Sodium (Chloride) 250 mls @ 250 mls/hr IV Q24H [facility] Last Admin: 10/14/20 23:16 Dose: 250 mls/hr Documented by: Azithromycin 500 mg/ Sodium (Chloride) 250 mls @ 250 mls/hr IV Q24H [facility] Stop: 10/17/20 22:29 Last Admin: 10/17/20 20:50 Dose: 250 mls/hr Documented by: Insulin Human Lispro (Insulin Lispro 100 Unit/Ml 10 Ml Vial) 0 unit SUBCUT QIDACANDBED [facility]; Protocol Last Admin: 10/17/20 06:16 Dose: Not Given Documented by: Morphine Sulfate (Morphine 2 Mg/Ml Syringe) 2 mg IVPUSH Q4H PRN PRN Reason: Pain (severe 7-10) Stop: 10/15/20 21:04 Potassium Chloride (Potassium Chloride 20 Meq Tab.Er) 40 meq PO ONETIME ONE Stop: 10/19/20 07:59 Last Admin: 10/19/20 08:24 Dose: 40 meq Documented by: Warfarin Sodium (Warfarin 5 Mg Tab) 5 mg PO [id number] [facility] Last Admin: 10/17/20 17:00 Dose: 5 mg Documented by: Warfarin Sodium (Warfarin 3 Mg Tab) 3 mg PO QPM [facility] Stop: 10/18/20 18:01 Last Admin: 10/18/20 17:00 Dose: 3 mg Documented by:
[2020-10-19] MEDS ORDERED: Warfarin 2.5 MG Tab PO SCH (18:00)
[2020-10-19] MEDS ORDERED: Warfarin Sliding Scale PO SCH (18:00)
== END 2020-10-19 13:09 | disposition home or self-care (01) | DRG 137 ==
LOC: JD.ED 16:50 → JD.MS 20:32 → UNDOADMIN 20:32
PROVIDERS: ADMIT Internal Medicine; ATTEND Internal Medicine
PROC: 8E0ZXY6 Isolation (ICD-10-PCS; principal; 2020-10-14)
PROC: XW033E5 Introduction of Remdesivir Anti-infective into Peripheral Vein, Percutaneous Approach, New Technology Group 5 (ICD-10-PCS; 2020-10-14)
PROC: XW033F5 Introduction of Other New Technology Therapeutic Substance into Peripheral Vein, Percutaneous Approach, New Technology Group 5 (ICD-10-PCS; 2020-10-14)
DX: U07.1 COVID-19 (principal); J12.82 Pneumonia due to coronavirus disease 2019; J96.01 Acute respiratory failure with hypoxia; R73.03 Prediabetes; R74.01 Elevation of levels of liver transaminase levels; E83.51 Hypocalcemia; R73.9 Hyperglycemia, unspecified; E66.9 Obesity, unspecified; Z79.01 Long term (current) use of anticoagulants; I10 Essential (primary) hypertension; Z86.711 Personal history of pulmonary embolism; M41.9 Scoliosis, unspecified; Z86.718 Personal history of other venous thrombosis and embolism; T50.905A Adverse effect of unspecified drugs, medicaments and biological substances, initial encounter; F41.9 Anxiety disorder, unspecified; F32.9 Major depressive disorder, single episode, unspecified; Z90.49 Acquired absence of other specified parts of digestive tract; J43.9 Emphysema, unspecified; Y92.89 Other specified places as the place of occurrence of the external cause; Z68.37 Body mass index [BMI] 37.0-37.9, adult
CPT/HCPCS: 0240U; 36415; 71045; 71045-26; 80053; 81001; 82728; 82947; 83036; 83605; 83615; 83735; 85025; 85379; 85610; 85730; 86140; 87040; 87070; 87205; 87641; 93005; 93010; 94640; 94667; 94668; 94762; 99222; 99233; 99238; 99284; 99285-25; A9270-GY; J0456; J0696; J1815-GY; J7050; J8540